=== PATIENT | male | born 1955 | race Caucasian/White ===

== ENCOUNTER 2017-06-18 13:50 | Inpatient (IN) ==
[2017-06-18] MEDS ORDERED: 0.9 % Sodium Chloride 500 ML IVC ONE (14:05)
--- NOTE | 2017-06-18 14:35 | Emergency Department Note ---
Disposition Clinical Impression: TIA (transient ischemic attack) Qualifiers: Transient cerebral ischemia type: unspecified Qualified Code(s): G45.9 - Transient cerebral ischemic attack, unspecified Disposition: Admitted As Inpatient Condition: Good Referrals: NONE,PCP [Non-Partnered Physician] - Forms: ED Satisfaction Letter Time of Disposition: 17:26 Fall HPI - General Chief Complaint: ED Fall Stated Complaint: Head injury / Syncopal episode Time Seen by Provider: 06/18/17 14:05 Source: patient Mode of arrival: wheelchair Limitations: no limitations Nursing Notes Reviewed: Yes Vital Signs Reviewed: Yes - History of Present Illness HPI Narrative: 62 year old male who lives at home with his stepdaughter and states that he has been experiencing increased syncopal episodes and today he was trying to pee in the bathroom and sat down on the toilet and then "blacked out" And hit his head on the dryer machine. with (+) LOC and states that when he came too he moved himself into the living room and noticed that he was bleedingin profusely and called his stepdaughter and she cleaned him up and then brought him to the ED> Heath staets that he has been feeling increasingly light headed withtout difficulyt in ambulating or other neuro symptoms. Heath tstates that he is experiencing a headache and left ear pain. Heath does not have any other pain anywhere else. Heath states that he has atrial fibrillation that is rate controlled and is currently on a blood thinner but cannot remember the name of the medication. - Related Data Previous Rx's Medication Instructions Recorded Albuterol Sulfate [Albuterol 1 puff IH Q6HR #1 [id number] 07/22/15 Inhaler] Azithromycin [Zithromax] 250 mg PO DAILY #6 tablet 07/22/15 Allergies Allergy/AdvReac Type Severity Reaction Status Date / Time No Known Allergies Allergy Verified 07/22/15 12:51 Constitutional: Denies: fever, chills, weakness, weight change Eyes: Denies: eye pain, eye discharge, vision change ENT ED: Denies: ear pain, throat pain, dental pain, hearing loss, epistaxis, congestion, dysphagia Cardiovascular: Denies: chest pain, palpitations, dyspnea on exertion, edema, syncope Respiratory: Denies: cough, dyspnea, wheezes, hemoptysis, stridor Gastrointestinal: Denies: abdominal pain, nausea, vomiting, diarrhea, constipation, hematemesis, melena, hematochezia Genitourinary: Denies: urgency, dysuria, frequency, hematuria Musculoskeletal: Denies: back pain, neck pain, arthralgia, myalgia Integumentary: Denies: rash, abrasion, lesions Neurological: Reports: headache, weakness, other (syncope). Denies: numbness, paresthesias, confusion, abnormal gait, vertigo Psychiatric: Denies: anxiety, depression, suicidal thoughts, homicidal thoughts , auditory hallucinations, visual hallucinations Endocrine: Denies: fatigue Hematological/Lymphatic: Denies: easy bleeding, easy bruising Allergic/Immunologic: Denies: facial swelling, urticaria Fall PMH - Past Medical History Medical history: Reports: atrial fibrillation, diabetes, hyperlipidemia, hypertension Surgical history: Reports: orthopedic, other Psychiatric history: Reports: anxiety, depression - Social History Smoking Status: Current every day smoker Alcohol use: Reports: none Drug use: Reports: none Physical Exam - General Limitations: no limitations General appearance: alert - Head Head exam: normocephalic, normal inspection, other (abrasionso the left temporal forehead and left ear bruised and red) - Eye Eye exam: Present: normal appearance, PERRL, EOMI - Expanded Eye Exam Pupils: Left: reactive - ENT ENT exam: normal exam, normal oropharynx, mucous membranes moist - Expanded ENT Exam External ear exam: Present: normal external inspection Mouth exam: Present: normal external inspection Teeth exam: Present: normal inspection Throat exam: Present: normal inspection - Neck Neck exam: Present: normal inspection, full ROM, trachea midline - Chest Chest inspection: Present: normal inspection, symmetric chest wall rise - Respiratory Respiratory exam: Present: normal lung sounds bilaterally - Cardiovascular Cardiovascular exam: Present: regular rate, irregular rhythm, normal heart sounds - Abdominal Exam Abdominal exam: Present: soft, Non-Tender. Absent: tenderness, distention, guarding, rebound, rigidity - Extremities Exam Extremities exam: Present: normal inspection, full ROM. Absent: tenderness, pedal edema - Expanded Upper Extremity Exam Shoulder exam: Present: normal inspection, full ROM Arm exam: Present: normal inspection, full ROM Elbow exam: Present: normal inspection, full ROM Forearm/Wrist exam: Present: normal inspection, full ROM Hand exam: Present: normal inspection, full ROM Vascular exam: Normal: capillary refill, radial pulse - Expanded Lower Extremity Exam Hip/Pelvis exam: Present: normal inspection, full ROM Upper leg exam: Present: normal inspection, full ROM Knee exam: Present: normal inspection, full ROM Lower leg exam: Present: normal inspection, full ROM Ankle exam: Present: normal inspection, full ROM Foot/toe exam: Present: normal inspection, full ROM Neurovascular/Tendon exam: Absent: motor deficit, sensory deficit, tendon deficit - Back Exam Back exam: Present: normal inspection, full ROM. Absent: tenderness - Neurological Exam Neurological exam: Present: alert, oriented X3 - Expanded Neurological Exam Patient oriented to: Present: person, place, time Coma Scale Eye Opening: Spontaneous Coma Scale Motor Response: Obeys Commands Coma Scale Verbal Response: Oriented Coma Scale Total: 15 - Psychiatric Psychiatric exam: Present: normal affect, normal mood - Skin Skin exam: Present: warm, dry, intact, normal color Course Course Narrative: we will do a HCT and synope workup on patient. - Reevaluation(s) Reevaluation #1: discussed results with patient. We will admit to medicine for r/o CVA. Asa has been given. Time: 17:25 - Consultations Consultation #1: discussed case with Dr. Pozo and she accepts patient to the medicine servvice Time: 17:26 Vital Signs Temperature 97.5 F L 06/18/17 13:54 Pulse Rate 80 06/18/17 13:54 Respiratory Rate 16 06/18/17 13:54 Blood Pressure 123/5 06/18/17 13:54 O2 Sat by Pulse Oximetry 92 06/18/17 13:54 Temperature 97.5 F L 06/18/17 13:54 Pulse Rate 91 06/18/17 17:22 Respiratory Rate 18 06/18/17 17:22 Blood Pressure 154/81 06/18/17 17:22 O2 Sat by Pulse Oximetry 94 06/18/17 17:22 Oxygen Delivery Oxygen Delivery Nasal Cannula Fall - Lab Data Result diagrams: 06/18/17 14:37 06/18/17 14:37 Lab Results 06/18/17 06/18/17 06/18/17 Range/Units 14:37 14:37 14:37 WBC 7.1 (4.3-11.1) K/mcL RBC 5.12 (4.19-5.50) M/mcL Hgb 12.8 L (12.9-16.9) g/dL Hct 43.0 (37.5-50.1) % MCV 84.0 (83.0-100.0) fL MCH 25.0 L (28.0-33.3) pg MCHC 29.8 L (31.6-35.5) g/dL RDW 18.0 H (11.5-14.5) % Plt Count 226 (140-400) K/mcL MPV 8.9 L (9.4-12.4) fL Immature Gran % 0.6 (0-4) % Seg Neutrophils % 80.5 % Lymphocytes % 9.5 % Monocytes % 6.2 % Eosinophils % 2.8 % Basophils % 0.4 % Neutrophils # 5.7 (1.6-8.9) K/mcL Lymphocytes # 0.7 (0.6-4.6) K/mcL Monocytes # 0.4 (0.0-1.3) K/mcL Eosinophils # 0.2 (0.0-0.6) K/mcL Basophils # 0.0 (0.0-0.2) K/mcL PT 19.9 H (9.4-12.1) Seconds INR 1.8 APTT 37.8 H (26.0-36.0) Seconds Sodium 137 (136-145) mEq/L Potassium 4.0 (3.5-4.5) mEq/L Chloride 101 (98-109) mEq/L Carbon Dioxide 29 (19-29) mEq/L BUN 21 (8-26) mg/dL Creatinine 0.90 (0.72-1.25) mg/dL Est GFR ( Amer) > 60 (> 60) Est GFR (Non-Af Amer) > 60 (> 60) BUN/Creatinine Ratio 23 (6-26) Glucose 145 H (70-99) mg/dL Calculated Osmolality 290 (280-300) Calcium 9.9 (8.6-10.8) mg/dL Troponin I (0-0.03) ng/mL Urine Color (Yellow) Urine Clarity (Clear) Urine pH (5.0-8.0) pH Units Ur Specific Model (1.010-1.025) Urine Protein (Neg-Trace) mg/dL Urine Glucose (UA) (Normal) mg/dL Urine Ketones (Negative) mg/dL Urine Blood (Negative) Urine Nitrite (Negative) Urine Bilirubin (Negative) Urine Urobilinogen (Normal) mg/dL Ur Leukocyte Esterase (Negative) Urine Microscopic RBC (0-3) per hpf Ur Squamous Epith Cells (None-Few) per lpf Amorphous Sediment (Few) Urine Bacteria (None-Few) per hpf Hyaline Casts (None-Few) per lpf Ur Culture Indicated? (NO) 06/18/17 06/18/17 Range/Units 14:37 16:05 WBC (4.3-11.1) K/mcL RBC (4.19-5.50) M/mcL Hgb (12.9-16.9) g/dL Hct (37.5-50.1) % MCV (83.0-100.0) fL MCH (28.0-33.3) pg MCHC (31.6-35.5) g/dL RDW (11.5-14.5) % Plt Count (140-400) K/mcL MPV (9.4-12.4) fL Immature Gran % (0-4) % Seg Neutrophils % % Lymphocytes % % Monocytes % % Eosinophils % % Basophils % % Neutrophils # (1.6-8.9) K/mcL Lymphocytes # (0.6-4.6) K/mcL Monocytes # (0.0-1.3) K/mcL Eosinophils # (0.0-0.6) K/mcL Basophils # (0.0-0.2) K/mcL PT (9.4-12.1) Seconds INR APTT (26.0-36.0) Seconds Sodium (136-145) mEq/L Potassium (3.5-4.5) mEq/L Chloride (98-109) mEq/L Carbon Dioxide (19-29) mEq/L BUN (8-26) mg/dL Creatinine (0.72-1.25) mg/dL Est GFR ( Amer) (> 60) Est GFR (Non-Af Amer) (> 60) BUN/Creatinine Ratio (6-26) Glucose (70-99) mg/dL Calculated Osmolality (280-300) Calcium (8.6-10.8) mg/dL Troponin I 0.00 (0-0.03) ng/mL Urine Color Yellow (Yellow) Urine Clarity Clear (Clear) Urine pH 6.0 (5.0-8.0) pH Units Ur Specific Model 1.025 (1.010-1.025) Urine Protein Negative (Neg-Trace) mg/dL Urine Glucose (UA) >=1000 H (Normal) mg/dL Urine Ketones Negative (Negative) mg/dL Urine Blood Negative (Negative) Urine Nitrite Negative (Negative) Urine Bilirubin Negative (Negative) Urine Urobilinogen Normal (Normal) mg/dL Ur Leukocyte Esterase Negative (Negative) Urine Microscopic RBC 0-3 (0-3) per hpf Ur Squamous Epith Cells Few (None-Few) per lpf Amorphous Sediment Few (Few) Urine Bacteria None Seen (None-Few) per hpf Hyaline Casts None Seen (None-Few) per lpf Ur Culture Indicated? NO (NO) - EKG Data EKG attestation: Yes I reviewed and interpreted this EKG. EKG results narrative: atrial fibrillation with controlled rate of 66. NO STEMI. no change from old EKG 07/22/15
[2017-06-18 14:40] LABS: Basophils % 0.4 %; Eosinophils # 0.2 K/mcL (0.0-0.6); Eosinophils % 2.8 %; Hemoglobin 12.8 g/dL (12.9-16.9); Immature Granulocytes % 0.6 % (0-4); Lymphocytes # 0.7 K/mcL (0.6-4.6); Lymphocytes % 9.5 %; Mean Corpuscular HGB Conc 29.8 g/dL (31.6-35.5); Mean Platelet Volume 8.9 fL (9.4-12.4); Monocytes # 0.4 K/mcL (0.0-1.3); Monocytes % 6.2 %; Neutrophils # 5.7 K/mcL (1.6-8.9); Platelet Count 226 K/mcL (140-400); Red Blood Count 5.12 M/mcL (4.19-5.50); Segmented Neutrophils % 80.5 %
[2017-06-18 14:46] LABS: INR 1.8; Prothrombin Time 19.9 Seconds (9.4-12.1)
[2017-06-18 14:48] LABS: Activated Partial Thrombo Time 37.8 Seconds (26.0-36.0)
[2017-06-18 14:52] LABS: BUN/Creatinine Ratio 23 (6-26); Blood Urea Nitrogen 21 mg/dL (8-26); Calcium 9.9 mg/dL (8.6-10.8); Carbon Dioxide 29 mEq/L (19-29); Chloride 101 mEq/L (98-109); Glucose 145 mg/dL (70-99); Osmolality,Calculated 290 (280-300); Sodium 137 mEq/L (136-145); eGFR For African Americans > 60 (> 60); eGFR For Non-African Americans > 60 (> 60)
[2017-06-18 16:20] LABS: Bilirubin,Urine Negative (Negative); Blood,Urine Negative (Negative); Color,Urine Yellow (Yellow); Glucose,Urine (UA) >=1000 mg/dL (Normal); Ketones,Urine Negative (Negative); Leukocyte Esterase,Urine Negative (Negative); Nitrite,Urine Negative (Negative); Protein,Urine Negative (Neg-Trace); Specific Gravity,Urine 1.025 (1.010-1.025); Urobilinogen,Urine Normal (Normal)
[2017-06-18 16:22] LABS: Bacteria,Urine None Seen per hpf (None-Few); RBC,Urine 0-3 per hpf (0-3)
[2017-06-18 16:35] LABS: Clarity,Urine Clear (Clear); Squamous Epithelial Cell,Urine Few per lpf (None-Few)
[2017-06-18 16:36] LABS: Amorphous Sediment,Urine Few (Few); Hyaline Casts,Urine None Seen per lpf (None-Few)
[2017-06-18] MEDS ORDERED: Aspirin 81 MG TAB.CHEW PO ONE (17:16)
--- NOTE | 2017-06-18 20:05 | Internal Med History&Physical ---
<Homar Cade - Last Filed: 06/18/17 22:20> Date of Encounter: 06/18/17 Time of Encounter: 19:00 Assessment and Plan (1) Syncope Current visit: Yes Status: Acute Patient presents with syncope that occurred today when he went to the bathroom morning. Patient states he sat down to use the restroom and blacked out, hitting his head on the washer causing a minor head injury that bled due to patient being on Xarelto. Patient states he became shaky and his left arm him went numb prior to syncope. He reports that he has been feeling this way for approximately 1.[address] brain without contrast dated today shows areas of encephalomalacia in the right parietal lobe and right cerebellar hemisphere despite reported lack of prior stroke per patient. MRI of the head/ brain w/wo contrast ordered as well as bilateral carotid Doppler duplex imaging , echocardiogram, orthostatic BPs and vital signs, and neurological checks Q4. Will hold patient's Xarelto tonight pending neuro checks and MRI results and resume tomorrow if appropriate. Qualifiers: Syncope type: unspecified Qualified Code(s): R55 - Syncope and collapse (2) Recurrent falls Current visit: Yes Status: Acute Patient has history of chronic falls with most acute episode today due to syncope. Will rule out possible causes for syncope and falls, including possible CVA, orthostatic hypotension, medication combinations of antihypertensives and sildenafil, and uncontrolled diabetes. PT/OT consults ordered to assess patient's ambulation abilities. Patient to be placed as falls precautions/up with assist/bed rest with bedside commode with assist only due to syncope and falls. (3) Non-pressure ulcer of right lower extremity Current visit: Yes Status: Acute Patient who presents with history of PAD, uncontrolled diabetes, and venous insufficiency of the LEs currently has two non-pressure ulcers of the RLE. One measures approximately 3.8 cm in diameter and 1 cm deep through the adipose layer and the second measuring approximately 1.5 cm in diameter that is closed with scabbing. Wound culture ordered of the open ulcer. Wound care consult and diabetes education consult ordered. Vascular surgery consult ordered as well due to previous arterial study of 02/25 which showed severely diminished right posterior tibial and right dorsalis pedis segmental pressures. Patient had an [id number] amputation of the left leg in 2005. Qualifiers: Non-pressure ulcer stage: with fat layer exposed Qualified Code(s): L97.912 - Non-pressure chronic ulcer of unspecified part of right lower leg with fat layer exposed (4) Tobacco abuse counseling Current visit: Yes Status: Acute Patient provided >5 minutes of smoking cessation counseling due to his current tobacco abuse of 1.5 PPD. Discussed the risks of smoking as related to his diabetes and the vascular impact it can have on healing and health. Patient declined nicotine patch. (5) Diabetes Current visit: Yes Status: Chronic Patient presents with history of chronic diabetes which is currently controlled with glimepiride, liraglutide, farxiga, januvia, and metformin. Will hold patient's home meds and order basal dosing of 10 units of Levemir BID, nutritional dosing of 4 units TID, and medium dose correction insulin sliding scale with hypoglycemia protocol. A1c ordered. Diabetic diet. Diabetes education consult ordered. 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 EKGs dated 07/22/17 and 06/18/17 show atrial fibrillation with incomplete right bundle branch block and nonspecific T-wave abnormality with no significant changes. Will continue digoxin and order digoxin level to assess for toxicity and rule out syncopal reasoning. Patient placed on continuous cardiac telemetry. Qualifiers: Atrial fibrillation type: chronic Qualified Code(s): I48.2 - Chronic atrial fibrillation (7) HTN (hypertension) Current visit: Yes Status: Chronic Patient presents with history of chronic hypertension. Will monitor patient and vital signs and continue his lisinopril/hydrochlorothiazide, lopressor, and amlodipine. Qualifiers: Hypertension type: essential hypertension Qualified Code(s): I10 - Essential (primary) hypertension (8) HLD (hyperlipidemia) Current visit: Yes Status: Chronic Patient presents with history of chronic hyperlipidemia. Lipid panel ordered in a.m. Will continue patient's Tricor and Zocor. Qualifiers: Hyperlipidemia type: pure hypercholesterolemia Qualified Code(s): E78.00 - Pure hypercholesterolemia, unspecified; E78.0 - Pure hypercholesterolemia (9) Anxiety and depression Current visit: Yes Status: Chronic Patient presents with history of chronic anxiety and depression. Will continue patient's Xanax. (10) Rheumatoid arthritis Current visit: Yes Status: Chronic Patient presents with history of chronic RA. Will continue patient's Imuran and stair-step medications to help with pain management. Qualifiers: Rheumatoid arthritis location: unspecified site Rheumatoid factor presence : unspecified presence Qualified Code(s): M06.9 - Rheumatoid arthritis, unspecified (11) DVT prophylaxis Current visit: Yes Status: Acute Patient to be placed on DVT prophylaxis due to current admission protocol and bed rest status. Will hold patient's Xarelto today and order MRI imaging and neuro checks Q4 to assess for deficits or signs of unusual bleeding/behaviors. Will continue Xarelto tomorrow based on assessments tonight. Internal Medicine - H&P: HPI Chief complaint: Fall/Syncope Admitted From: Emergency Dept Plans for Post Hospital Care: Home History of present illness: Mr. Blancas is a 62 year old male who presents from the ED with chief complaint of syncope that occurred today when he went to the bathroom morning. Patient states he sat down to use the restroom and blacked out, hitting his head on the washer causing a minor head injury that bled due to patient being on Xarelto. Patient states he became shaky and his left arm him went numb prior to syncope. His stepdaughter brought him to the ED. Mr. Blancas reports that he has been feeling this way for the past month and a half. Patient's medical history includes atrial fibrillation, diabetes, hyperlipidemia, and hypertension. Patient is currently on Xarelto and digoxin for atrial fibrillation. Patient reports he is a current every day smoker, smoking one half packs per day. Patient is also a diabetic with poorly controlled diabetes. He currently has two untreated pressure ulcers of the RLE, one of which measures approximately 3.8 cm in diameter and 1 cm deep through the adipose layer. Wound culture ordered. Patient had a left leg amputation above the knee in 2005 due to PAD. Patient is at high risk for morbidity based on his current symptoms and risk factors and will be placed as inpatient status with orders for vascular surgery and wound care consults, PT and OT consults, SW consult, and diabetes education consult to assess patient's needs. Due to patient's syncopal episode and CT imaging today which shows areas of encephalomalacia in the right parietal lobe and right cerebral hemisphere despite reported lack of prior stroke by the patient, the patient is to have neuro checks Q4 and an MRI of the head/brain w/wo contrast to help rule out possible stroke/TIA. Orders also placed for bilateral carotid Doppler duplex imaging, echocardiogram, and orthostatic vital signs and BPs. Due to patient's history of falls and syncope today, patient to be placed as falls precautions/up with assist/bed rest with bedside commode with assist only. Tobacco cessation counseling provided to patient for less than 10 minutes and patient declined the use of nicotine patch. A1c and diabetic diet ordered. Patient to be monitored closely for signs of neurological deficits, cardiac and/or respiratory distress. Time spent with patient > 40 minutes. Past Med Surg Social Fam HX - Past Medical History Source: patient Medical history: atrial fibrillation, diabetes, hyperlipidemia, hypertension Psychiatric history: anxiety, depression - Past Surgical History Surgical History: orthopedic, other - Social History Smoking Status: Current every day smoker Packs per day: 1.5 PPD Smokeless Tobacco Status: No Alcohol use: none Drug use: none Current living situation: Home, With Family Recent Out of Country Travel Within the Last 8 Weeks: No Exposure or Possible Exposure to Illness During Travel: No - Family History Mother Race: Family Member Ethnicity: Non- Living Status: Age at : 59 Cause of : Breast cancer Hx Family Cancer: Yes (breast cancer) Internal Medicine - H&P: Meds ALPRAZolam [Xanax 0.5 MG Tablet] 0.5 mg PO BID 06/18/17 [History] Amlodipine Besylate 10 mg PO DAILY 06/18/17 [History] Azathioprine [Imuran] 50 mg PO BID 06/18/17 [History] Calcium Carbonate/Vitamin D3 [Calcium 500-Vit D3 200 Tablet] 1 each PO BID 06/18 [History] Dapagliflozin Propanediol [Farxiga] 5 mg PO DAILY 06/18/17 [History] Digoxin [Lanoxin] 0.125 mg PO DAILY 06/18/17 [History] Famotidine [Heartburn Prevention] 20 mg PO DAILY 06/18/17 [History] Fenofibrate Nanocrystallized [Tricor] 145 mg PO DAILY 06/18/17 [History] Gabapentin [Neurontin] 300 mg PO TID 06/18/17 [History] Glimepiride [Amaryl] 1 mg PO QAM 06/18/17 [History] Liraglutide [Victoza 2-Rudy] 0.6 mg SQ DAILY 06/18/17 [History] Lisinopril/Hydrochlorothiazide [Zestoretic 20-25 mg Tablet] 1 each PO DAILY 06/27 [History] Metformin HCl [Glucophage] 1,000 mg PO BID 06/18/17 [History] Metoprolol [Lopressor] 100 mg PO BID 06/18/17 [History] Oxycodone HCl/Acetaminophen [Percocet 5-325 mg Tablet] 1 each PO Q6H PRN [History] Rivaroxaban [Xarelto] 20 mg PO DAILY 06/18/17 [History] Sildenafil Citrate [Viagra] 50 mg PO AD PRN 06/18/17 [History] Simvastatin [Zocor] 40 mg PO HS 06/18/17 [History] SitaGLIPtin [Januvia] 100 mg PO DAILY 06/18/17 [History] Allergies No Known Allergies Allergy (Verified 07/22/15 12:51) All Systems PM: A 10-system review of systems was performed and is negative for pertinent findings except as documented above in the HPI. - Constitutional Constitutional: as per HPI, falls - EENT Eyes: no change in vision, no discharge, no pain, no photophobia Ears: no ear discharge, no ear pain, no tinnitus Nose, mouth and throat: no dysphagia, no nasal discharge, no neck pain, no sore throat - Breasts Breasts: as per HPI - Cardiovascular Cardiovascular ROS IM: as per HPI, irregular heart rhythm - Respiratory Respiratory: as per HPI, wheezing, no cough, no dyspnea, no excessive phlegm production - Gastrointestinal Gastrointestinal: no abdominal pain, no diarrhea, no hematemesis, no hematochezia, no melena, no nausea, no vomiting - Genitourinary Genitourinary ROS male: as per HPI - Musculoskeletal Musculoskeletal ROS IM: no numbness, no tingling - Integumentary Integumentary IM: as per HPI, skin ulcer (Right leg/outer calf are two ulcers through the adipose tissue (one approximately 2" in diameter, and 1 scabbed over approxiamtely 1" in diameter)), no rash, no unusual bruising - Neurological Neurological ROS: as per HPI, numbness, tingling, no confusion, no convulsions, no focal weakness, no tremor(s) - Psychiatric Psychiatric: as per HPI - Endocrine Endocrine IM: as per HPI - Hematologic/Lymphatic Hematologic/Lymphatic: no easy bruising - Allergic/Immunologic Allergic/Immunologic: as per HPI - Constitutional Vitals: Temp Pulse Resp BP Pulse Ox 97.9 F 76 15 172/77 90 06/18/17 19:45 06/18/17 19:45 06/18/17 19:45 06/18/17 19:45 06/18/17 19:45 General appearance: Present: cooperative, A&O X 3, morbidly obese, pleasant, no acute distress, answers questions appropriately - Head Head exam: Present: normocephalic Additional comments: Patient has scabbed areas located on left forehead from his report of hitting his head on his washer when he became syncopal today. - Eye Eye exam: Present: PERRL, conjuntiva pink, sclera anicteric Pupils: Present: PERRL - ENT ENT exam: Present: normal exam, normal external ear exam - Neck Neck exam general surgery: Present: normal inspection, supple, trachea midline - Respiratory Respiratory exam: Present: wheezes (Bilaterally all lobes) - Cardiovascular Cardiovascular exam: Present: irregular rhythm - GI/Abdominal GI/Abdominal exam: Present: normal bowel sounds, soft, no peritoneal signs. Absent: distended, tenderness - Rectal Rectal exam: Present: deferred - Additional comments: exam deferred. - Extremities Exam Extremities exam: Present: pedal edema (Right LE) - Back Exam Back exam: Present: normal inspection - Neurological Exam Neurological exam: Present: CN II-XII intact, oriented X3, no focal deficits. Absent: pronater drift, facial droop, speech deficit - Psychiatric Psychiatric exam: Present: normal affect, normal mood - Skin Skin exam: Present: erythema (RLE) Additional comments: Patient has two ulcers on the right outer calf, one is approximately 3.8 cm in diameter and approximately 1 cm in depth through the adipose tissue of the leg. The second is approximately 1.5 cm in diameter and is closed by scabbing. Internal Med - H&P Results - Labs CBC & Chem 7: 06/18/17 14:37 06/18/17 14:37 - EKG Data Prior EKG available for review: yes When compared to previous EKG: there is no significant change EKG comments: 06/18/17 20:44 EKG dated 07/22/15 shows atrial fibrillation with incomplete right bundle branch block and nonspecific T-wave abnormality. EKG dated 06/18/17 shows atrial fibrillation with incomplete right bundle branch block and nonspecific T-wave abnormality. - Diagnostic Studies Chest x-ray Additional comments: Impressions Chest X-Ray 06/18/17 14:05 IMPRESSION: Negative chest x-ray. No evidence of acute cardiopulmonary disease. D/ / Eulogio Alonso MD / Eulogio Alonso MD Interpreting Provider: Eulogio Alonso MD CT scan - head Additional comments: Impressions Head CT 06/18/17 14:05 IMPRESSION: 1. No acute intracranial abnormality nor acute calvarial fracture. 2. Areas of encephalomalacia in the right parietal lobe and right cerebellar hemisphere despite reported lack of prior stroke per the patient. D/ / Nayan Whitaker MD / Nayan Whitaker MD Interpreting Provider: Nayan Whitaker MD <Niko Gould - Last Filed: 06/18/17 23:58> Date of Encounter: 06/18/17 Internal Medicine - H&P: HPI History of present illness: Mr. Blancas is a 62 year old male All Systems PM: A 10-system review of systems was performed and is negative for pertinent findings except as documented above in the HPI. - Constitutional Vitals: Temp Pulse Resp BP Pulse Ox 97.9 F 78 16 129/75 92 06/18/17 22:38 06/18/17 22:38 06/18/17 22:38 06/18/17 22:38 06/18/17 22:38 Internal Med - H&P Results - Labs CBC & Chem 7: 06/18/17 14:37 06/18/17 14:37 - Attending Attestation I independently obtained history and examined this patient and my medical decision-making was reviewed with the nurse practitioner. I agree with the documented findings, disposition and treatment plan as described. My findings are summarized below: Patient presented status post fall. He states that he blacked out. On exam he is in no acute distress awake alert and oriented. Heart is regular with normal S1-S2, no murmurs. Lung exam reveals bilateral wheezes. Abdomen is obese. Lower extremity exam reveals left BKA with amputation stump well healed. Right lower extremity wound on the outside coleman measuring 6 cm and the largest diameter. Plan: Orthostatic vital signs. Neuro checks. Workup for syncope including echocardiogram. The wound care consult. Vascular surgery consult for severe peripheral arterial disease. Per medical record review he had vascular studies done which showed severe right lower extremity perfusion deficit.
[2017-06-18] MEDS ORDERED: Naloxone 0.4 MG/ML INJ IVP PRN (20:47)
[2017-06-18] MEDS ORDERED: *HR* HYDROcodone/Acet 5/325 mg TABLET PO PRN (20:47)
[2017-06-18] MEDS ORDERED: Ondansetron 4 MG/2 ML VIAL IVP PRN (20:47)
[2017-06-18] MEDS ORDERED: Acetaminophen 325 MG TABLET PO PRN (20:47)
[2017-06-18] MEDS ORDERED: *HR* Morphine 2 MG/ML SYRINGE IVP PRN (20:47)
[2017-06-18] MEDS ORDERED: Dextrose Gel 15 GM PO PRN ×2 (21:02)
[2017-06-18] MEDS ORDERED: *HR* Dextrose 50 % in Water (Syg) 50 ML SYRINGE IVP PRN (21:02)
[2017-06-18] MEDS ORDERED: D5% in Water 1,000 ML IVC PRN (21:02)
[2017-06-18] MEDS: Metoprolol 100 MG TABLET PO SCH (22:07)
[2017-06-18] MEDS: ALPRAZolam 0.5 MG TABLET PO SCH (22:07)
[2017-06-18] MEDS: Gabapentin 300 MG CAPSULE PO SCH (22:07)
[2017-06-18] MEDS: Pantoprazole 40 MG VIAL IVP SCH (22:09)
[2017-06-18] MEDS: Insulin DETEMIR 100 UNIT/ML X5UNITS SQ SCH (23:10)
[2017-06-19 05:01] LABS: INR 1.3; Prothrombin Time 14.5 Seconds (9.4-12.1)
[2017-06-19 05:04] LABS: Activated Partial Thrombo Time 32.1 Seconds (26.0-36.0)
[2017-06-19 05:08] LABS: Hemoglobin A1C 6.5 %
[2017-06-19 05:11] LABS: BUN/Creatinine Ratio 19 (6-26); Blood Urea Nitrogen 20 mg/dL (8-26); Calcium 9.6 mg/dL (8.6-10.8); Carbon Dioxide 30 mEq/L (19-29); Chloride 102 mEq/L (98-109); Chol/HDL Ratio 5.6 (0-4.9); Cholesterol 139 mg/dL (< 200); Glucose 161 mg/dL (70-99); HDL Cholesterol 25 mg/dL (40-59); LDL Cholesterol,Calculated 57 mg/dL (0-99); Magnesium 1.9 mg/dL (1.6-2.6); Osmolality,Calculated 294 (280-300); Potassium 4.3 mEq/L (3.5-4.5); Sodium 139 mEq/L (136-145); Triglycerides 284 mg/dL (< 150); eGFR For African Americans > 60 (> 60); eGFR For Non-African Americans > 60 (> 60)
[2017-06-19 05:19] LABS: Basophils % 0.5 %; Segmented Neutrophils % 74.8 %
[2017-06-19 05:20] LABS: Eosinophils # 0.2 K/mcL (0.0-0.6); Eosinophils % 2.7 %; Hemoglobin 12.8 g/dL (12.9-16.9); Immature Granulocytes % 0.3 % (0-4); Lymphocytes # 0.8 K/mcL (0.6-4.6); Lymphocytes % 13.3 %; Mean Corpuscular HGB Conc 29.1 g/dL (31.6-35.5); Mean Corpuscular Volume 86.1 fL (83.0-100.0); Mean Platelet Volume 9.6 fL (9.4-12.4); Monocytes # 0.5 K/mcL (0.0-1.3); Monocytes % 8.4 %; Neutrophils # 4.4 K/mcL (1.6-8.9); Platelet Count 232 K/mcL (140-400); Red Blood Count 5.11 M/mcL (4.19-5.50); Red Cell Distribution Width 18.2 % (11.5-14.5)
[2017-06-19 05:40] LABS: Digoxin < 0.3 ng/mL (0.8-2.0)
[2017-06-19 06:13] LABS: Anisocytosis 1+ (Not Present); Hypochromasia Present (Not Present); Macrocytosis Present (Not Present); Platelet Estimate Normal (Normal); Polychromasia 1+ (Not Present)
[2017-06-19 06:14] LABS: Large Platelets Present (Not Present)
[2017-06-19] MEDS: Pantoprazole 40 MG VIAL IVP SCH (08:03)
[2017-06-19] MEDS: ALPRAZolam 0.5 MG TABLET PO SCH ×2 (08:04→20:59)
[2017-06-19] MEDS: Metoprolol 100 MG TABLET PO SCH (08:04)
[2017-06-19] MEDS: Gabapentin 300 MG CAPSULE PO SCH ×3 (08:04→20:59)
[2017-06-19] MEDS: Insulin LISPRO 300 UNITS/3 ML VIAL SQ SCH ×6 (08:41→16:32)
[2017-06-19] MEDS ORDERED: amLODIPine 5 MG TABLET PO SCH (09:00)
[2017-06-19] MEDS ORDERED: Fenofibrate 54 MG TABLET PO SCH (09:00)
[2017-06-19] MEDS ORDERED: *HR* Digoxin 0.125 MG TABLET PO SCH (09:00)
[2017-06-19] MEDS ORDERED: *HR* Midazolam HCl 2 MG/2 ML VIAL IVP ONE (10:16)
--- NOTE | 2017-06-19 10:22 | Internal Med Progress Note ---
Date of Encounter: 06/19/17 Time of Encounter: 09:45 - Assessment and plan (1) Syncope Current Visit: Yes Status: Acute Assessment and plan: In review of his telemetry overnight, patient's heart rate went down to as low as 18. However, his heart rate was in the 70s this morning so he received all of his normal home medications. Shortly thereafter, patient began to experience lightheadedness, dizziness, and presyncopal sensations. Telemetry reviewed and the patient's heart rate was down in the 20s. He was alert and able to carry on a conversation during this episode. Pacer pads placed although we have not had to use them at this time. Patient remained stable. Blood pressure remained stable. Cardiology brought on board, transferring the patient to [address] [place] [address]. Sign out to Dr. Call and care transferred. Echo, carotid , MRI pending. Patient stating that for the last 1.5 months, he has "not felt right. Something was wrong." He states that he has been dizzy and lightheaded at times during this timeframe, but yesterday's event was his first loss of consciousness. There are no recent cardiac workups in [facility] or in [facility]- no recent Echo, LHC, etc. He states that he was "shocked" 15 years ago for Afib RvR- he denies prior issues with bradycardia. ITS Impressions Chest X-Ray 06/18/17 14:05 IMPRESSION: Negative chest x-ray. No evidence of acute cardiopulmonary disease. D/ / Eulogio Alonso MD / Eulogio Alonso MD Interpreting Provider: Eulogio Alonso MD Head CT 06/18/17 14:05 IMPRESSION: 1. No acute intracranial abnormality nor acute calvarial fracture. 2. Areas of encephalomalacia in the right parietal lobe and right cerebellar hemisphere despite reported lack of prior stroke per the patient D/ / Nayan Whitaker MD / Herbert Batista Interpreting Provider: Nayan Whitaker MD (2) Atrial fibrillation with slow ventricular response Current Visit: Yes Status: Acute (3) Afib Current Visit: Yes Status: Chronic Assessment and plan: On dig with subtherapeutic levels. Will DC as he has been bradycardic since admission. AC with Xarelto- will resume after MRI if appropriate. Cardiology onboard. Qualifiers: Atrial fibrillation type: chronic Qualified Code(s): I48.2 - Chronic atrial fibrillation (4) Recurrent falls Current Visit: Yes Status: Acute Assessment and plan: OT and PT consultations are pending. (5) Non-pressure ulcer of right lower extremity Current Visit: Yes Status: Chronic Assessment and plan: acute on chronic. Vascular surgery is onboard- attempted to call Dr Goodwin without contact thus far. Patient with history of left [id number] amputation in 2006. Right lower extremity ecchymotic with capillary refill of 3 seconds to the toes. Decreased sensation with light touch. Patient had vascular studies in February that revealed severe vascular compromise to his right lower extremity. Wound is also on board. Qualifiers: Non-pressure ulcer stage: with fat layer exposed Qualified Code(s): L97.912 - Non-pressure chronic ulcer of unspecified part of right lower leg with fat layer exposed (6) Diabetes Current Visit: Yes Status: Chronic Assessment and plan: appears controlled with an A1C of 6.5%. continue sliding scale while admitted. Qualifiers: Diabetes mellitus type: type 2 Diabetes mellitus complication status: with skin complications Diabetes mellitus complication detail: with other skin ulcer Diabetes mellitus salvage determiner insulin use: without salvage determiner use Qualified Code(s): E11.622 - Type 2 diabetes mellitus with other skin ulcer (7) HTN (hypertension) Current Visit: Yes Status: Chronic Assessment and plan: Controlled. Orthostatic vital signs unremarkable. Continue to trend and adjust medications as indicated. Qualifiers: Hypertension type: essential hypertension Qualified Code(s): I10 - Essential (primary) hypertension (8) HLD (hyperlipidemia) Current Visit: Yes Status: Chronic Assessment and plan: Triglycerides 284, rest of lipid panel unremarkable. On fenofibrate and statin. Low-cholesterol diet. Qualifiers: Hyperlipidemia type: pure hypercholesterolemia Qualified Code(s): E78.00 - Pure hypercholesterolemia, unspecified; E78.0 - Pure hypercholesterolemia (9) Anxiety and depression Current Visit: Yes Status: Chronic Assessment and plan: Mood and affect stable during my interaction with him. (10) Tobacco abuse counseling Current Visit: Yes Status: Chronic Assessment and plan: Continues to smoke 1.5 packs per day, nicotine patch. Declines counseling at this time (11) Rheumatoid arthritis Current Visit: Yes Status: Chronic Assessment and plan: Chronic. denies pain at this time. (12) DVT prophylaxis Current Visit: Yes Status: Acute Assessment and plan: Holding home Xarelto for today pending MRI and CVA rule out. We will resume tomorrow if ruled out. - Time Spent With Patient Greater than 35 minutes - Subjective Interval history: Patient seen and examined. On examination, patient resting supine in bed with the head of the bed elevated. He is diaphoretic and pale and complains of dizziness and lightheadedness. He feels as if he is going to pass out. He denies any palpitations or chest pain. He is alert and oriented 3. He denies pain at this time. He ate his entire breakfast. - Constitutional Vitals: Temp Pulse Resp BP Pulse Ox 98.1 F 81 16 115/65 98 06/19/17 09:34 06/19/17 09:34 06/19/17 09:34 06/19/17 09:34 06/19/17 09:34 General appearance: Present: cooperative, mild distress, A&O X 3, morbidly obese , pleasant, answers questions appropriately - Head Head exam: Present: atraumatic, normocephalic - Eye Eye exam: Present: PERRL, conjuntiva pink, sclera anicteric Pupils: Present: PERRL - Neck Neck exam general surgery: Present: supple, trachea midline. Absent: lymphadenopathy - Respiratory Respiratory exam: Present: decreased breath sounds, respiratory distress (mild) . Absent: accessory muscle use, rales, rhonchi, wheezes - Cardiovascular Cardiovascular exam: Present: bradycardia, irregular rhythm, +S1, +S2. Absent: diastolic murmur, gallop, rubs, systolic murmur - GI/Abdominal GI/Abdominal exam: Present: distended, normal bowel sounds, soft, no peritoneal signs. Absent: tenderness - Extremities Exam Extremities exam: Present: warm, radial pulses palpable and symmetrical. Absent : calf tenderness, cyanotic, pedal edema - Expanded Lower Extremities Exam Lower Leg exam: Present: erythema (LEFT AKA; charting is on RLE), swelling. Absent: normal inspection Ankle exam: Present: erythema, swelling, tenderness. Absent: normal inspection Neuro vascular tendon exam: Present: abnormal cap refill (3 secs), decreased fine/light touch. Absent: no vascular compromise Gait: Present: not tested/not observed - Neurological Exam Neurological exam: Present: alert, CN II-XII intact, oriented X3, no focal deficits. Absent: pronater drift, facial droop, speech deficit - Skin Skin exam: Present: diaphoretic, intact, pallor, warm Internal Medicine: Result - Labs CBC & Chem 7: 06/19/17 04:34 06/19/17 04:34 Labs: Short CBC 06/19/17 Range/Units 04:34 WBC 5.9 (4.3-11.1) K/mcL Hgb 12.8 L (12.9-16.9) g/dL Hct 44.0 (37.5-50.1) % Plt Count 232 (140-400) K/mcL Neutrophils # 4.4 (1.6-8.9) K/mcL BMP 06/19/17 04:34 Sodium 139 Potassium 4.3 Chloride 102 Carbon Dioxide 30 H BUN 20 Creatinine 1.07 Glucose 161 H Calcium 9.6 - ABG Interpretation ABG results: PT/INR, D-dimer PT 14.5 Seconds (9.4-12.1) H 06/19/17 04:34 Consult Discharge Plan - Plan Referrals: Sarah Mckeon MD [Primary Care Provider] -
--- NOTE | 2017-06-19 11:08 | Cardiology Consult Note ---
Addendum entered and electronically signed by Fidel Fox CNP 06/19/17 16:08: Pt was also on Lopressor 100mg BID at home, received this AM as well. Stopped BB. Avoid AV foreign blockers. Original Note: <Fidel Fox - Last Filed: 06/19/17 10:57> Date of Encounter: 06/19/17 Time of Encounter: 10:57 Assessment and Plan (1) Syncope Current Visit: Yes Status: Acute Syncopal event yesterday morning while sitting on the toilet--laceration to head. No acute finding on head CT. It showed areas of encephalomalacia in the right parietal lobe and right cerebral hemisphere despite reported lack of prior stroke by the patient. Pt reports feeling unwell for the past month and a half. Denies chest pain or dyspnea. Pt with chronic A-Fib, diagnosed 10-15 years ago and has been on Digoxin since that time. Anticoagulated on xarelto, held on admission due to syncope and laceration. 12 hr tele reviewed--found to have nocturnal pauses up to 10 seconds and lowest HR noted 18 bpm, A-Fib. HR at 1008 this AM found to be 28, witnessed to be awake, pale and diaphoretic and presyncopal. Received Digoxin this AM. Dig level <0.3. Stop digoxin. External pacing pads in place and pt being transferred to . Echo ordered to evaluate structure and function. Mag 1.9, K 4.3. Consult EP for further recommendations regarding ischemic evaluation, PPM, etc. Qualifiers: Syncope type: unspecified Qualified Code(s): R55 - Syncope and collapse (2) Symptomatic bradycardia Current Visit: Yes Status: Acute As above. Concern for ischemic cause of bradycardia given multiple risk factors of uncontrolled DM, PVD, current tobacco abuse, obesity, HTN, HLD. No recent ischemic evaluation. Await echo results and consult EP for further recommendations. Will need input if pt warrants LHC prior to PPM. Troponin negative x 1. Pt denies chest pain or dyspnea. (3) Atrial fibrillation with slow ventricular response Current Visit: Yes Status: Acute As above. Anticoagulated on Xarelto, currently on hold s/p syncopal event and head laceration. Received Digoxin this AM. Will stop. Digoxin level <0.3. Chronic A-Fib, has been on digoxin 10-15 years. Reports having a DCCV in the remote past for A-Fib RVR. Reports slow ventricular response is a new issue for him. (4) Tobacco abuse Current Visit: Yes Status: Acute Smoking cessation counseling given. Smokes 1 1/2 PPD for >40 years. Discussion w patient/family: The assessment and plan as outlined above was discussed with the patient and/or family members who expressed understanding and agreement. All questions were answered. Thank you for involving us in the care of your patient. Please call with any questions. I will discuss all the above with Dr. Farfan and make changes as necessary. History of Present Illness Consult date: 06/19/17 Requesting physician: Ofelia Mccarty Consult reason: Symptomatic bradycardia, syncope, pauses Chief complaint: syncope History of present illness: Mr. Blancas is a 62 year old male with PMH of chronic atrial fibrillation on xarelto, poorly controlled diabetes, hyperlipidemia, HTN, PVD s/p left AKA, current tobacco abuse, currently has two untreated pressure ulcers of the RLE. Pt presented from the ED with chief complaint of syncope that occurred yesterday AM when he went to the bathroom. Patient states he sat down to use the restroom and blacked out, hitting his head on the washer causing a laceration. Pt reports that he has not been feeling well for the the past month and a half. CT imaging showed areas of encephalomalacia in the right parietal lobe and right cerebral hemisphere despite reported lack of prior stroke by the patient. Pt denies chest pain or dyspnea. 12 hr tele reviewed. Pt had nocturnal pauses up to 10 seconds and significant bradycardia with HR as low as 18. Pt alert and awake this AM, had EKG at 1008 AM with HR 28. Observation per hospitalist during that time, states pt was diaphoretic and pale. Pt felt as though he was going to pass out. He was on Digoxin at home 125mcg daily, received dose this AM. Digoxin level <0.3. Temporary pacer pads in place currently, current HR 60s-70s. Pt reports having a LHC many years ago without stent placement. No echo available for review. Cardiology consulted for further recommendations. Mag 1.9, K 4.3. Past Med Surg Social Fam HX - Past Medical History Medical history: atrial fibrillation, diabetes, hyperlipidemia, hypertension, peripheral artery disease Psychiatric history: anxiety, depression - Past Surgical History Surgical History: orthopedic, other, vascular surgery - Social History Smoking Status: Current every day smoker Packs per day: 1.5 PPD Smokeless Tobacco Status: No Alcohol use: none Drug use: none - Family History Mother Race: Family Member Ethnicity: Non- Living Status: Age at : 59 Cause of : Breast cancer Hx Family Cancer: Yes (breast cancer) Medications and Allergies ALPRAZolam [Xanax 0.5 MG Tablet] 0.5 mg PO BID 06/18/17 [History] Amlodipine Besylate 10 mg PO DAILY 06/18/17 [History] Azathioprine [Imuran] 50 mg PO BID 06/18/17 [History] Calcium Carbonate/Vitamin D3 [Calcium 500-Vit D3 200 Tablet] 1 each PO BID 06/18 [History] Dapagliflozin Propanediol [Farxiga] 5 mg PO DAILY 06/18/17 [History] Digoxin [Lanoxin] 0.125 mg PO DAILY 06/18/17 [History] Famotidine [Heartburn Prevention] 20 mg PO DAILY 06/18/17 [History] Fenofibrate Nanocrystallized [Tricor] 145 mg PO DAILY 06/18/17 [History] Gabapentin [Neurontin] 300 mg PO TID 06/18/17 [History] Glimepiride [Amaryl] 1 mg PO QAM 06/18/17 [History] Liraglutide [Victoza 2-Rudy] 0.6 mg SQ DAILY 06/18/17 [History] Lisinopril/Hydrochlorothiazide [Zestoretic 20-25 mg Tablet] 1 each PO DAILY 06/27 [History] Metformin HCl [Glucophage] 1,000 mg PO BID 06/18/17 [History] Metoprolol [Lopressor] 100 mg PO BID 06/18/17 [History] Oxycodone HCl/Acetaminophen [Percocet 5-325 mg Tablet] 1 each PO Q6H PRN [History] Rivaroxaban [Xarelto] 20 mg PO DAILY 06/18/17 [History] Sildenafil Citrate [Viagra] 50 mg PO AD PRN 06/18/17 [History] Simvastatin [Zocor] 40 mg PO HS 06/18/17 [History] SitaGLIPtin [Januvia] 100 mg PO DAILY 06/18/17 [History] Allergies No Known Allergies Allergy (Verified 07/22/15 12:51) All Systems Review: A 10-system review of systems was performed and is negative for pertinent findings except as documented above in the HPI. - Cardiovascular Cardiovascular: as per HPI, diaphoresis, syncope - Neurological Neurological: syncope Physical Examination Vital Signs, Last 4 Hours Temp Pulse Resp BP Pulse Ox 06/19/17 09:34 98.1 F 81 16 115/65 98 06/19/17 07:35 92 06/19/17 07:19 98.2 F 52 16 120/59 92 Vital Signs Temp Pulse Pulse Pulse Pulse Resp BP 06/19/17 09:34 98.1 F 81 16 115/65 06/19/17 07:35 06/19/17 07:19 98.2 F 52 16 120/59 06/19/17 04:14 98.2 F 80 83 83 80 16 127/74 06/18/17 22:38 97.9 F 78 16 129/75 06/18/17 19:45 97.9 F 76 15 172/77 06/18/17 18:47 97.8 F 82 16 161/76 06/18/17 18:36 98.1 F 18 151/74 06/18/17 17:22 91 18 154/81 06/18/17 13:54 97.5 F L 80 16 123/5 BP BP BP Pulse Ox 06/19/17 09:34 98 06/19/17 07:35 92 06/19/17 07:19 92 06/19/17 04:14 127/74 144/83 144/77 92 06/18/17 22:38 92 06/18/17 19:45 90 06/18/17 18:47 93 06/18/17 18:36 06/18/17 17:22 94 06/18/17 13:54 92 Intake and Output 06/18/17 06/19/17 06/19/17 23:59 07:59 15:59 Intake Total 237 / 237 Output Total 0 / 0 400 / 400 Balance 237 / 237 -400 / -400 Intake: Oral 237 / 237 Output: Urine 0 / 0 400 / 400 Other: Weight 129.727 kg 58.513 kg Blood Glucose* 98 160 Patient Weight 06/19/17 23:59 Weight 58.513 kg General: Conversant, No Apparent Distress HEENT: Atraumatic, Normocephaly, Mucus Membranes Moist Neck: No JVD, Normal carotid pulses Cardiac: Other (irregularly irregular ) Lungs: Other (coarse throughout) Neuro: Alert and responsive, No focal deficits noted Abdomen: Soft, Non-Tender Skin: Other (RLE wounds) Musculoskeletal: No Chest Wall Tenderness Extremities: Other (Left AKA) Results 06/19/17 04:34 06/19/17 04:34 Lab Results 06/19/17 06/19/17 06/19/17 04:34 04:34 04:34 WBC 5.9 Hgb 12.8 L Hct 44.0 Plt Count 232 INR 1.3 APTT 32.1 Sodium 139 Potassium 4.3 Chloride 102 Carbon Dioxide 30 H BUN 20 Creatinine 1.07 Glucose 161 H Calcium 9.6 Magnesium 1.9 - EKG Interpretation EKG results cardiology: personally reviewed, other (12 hr tele AVG HR 71, A-Fib , lowest HR 18, longest pause 10 seconds nocturnal) Consult Discharge Plan - Plan Referrals: Sarah Mckeon MD [Primary Care Provider] - <Liseth Farfan - Last Filed: 06/19/17 17:41> Date of Encounter: 06/19/17 Assessment and Plan Discussion w patient/family: The assessment and plan as outlined above was discussed with the patient and/or family members who expressed understanding and agreement. All questions were answered. Thank you for involving us in the care of your patient. Please call with any questions. History of Present Illness History of present illness: Mr. Blancas is a 62 year old male All Systems Review: A 10-system review of systems was performed and is negative for pertinent findings except as documented above in the HPI. Physical Examination Vital Signs, Last 4 Hours Temp Pulse Resp BP Pulse Ox 06/19/17 15:51 97.9 F 81 24 122/63 93 06/19/17 15:35 78 20 122/63 Results 06/19/17 04:34 06/19/17 04:34 Lab Results 06/19/17 06/19/17 06/19/17 04:34 04:34 04:34 WBC 5.9 Hgb 12.8 L Hct 44.0 Plt Count 232 INR 1.3 APTT 32.1 Sodium 139 Potassium 4.3 Chloride 102 Carbon Dioxide 30 H BUN 20 Creatinine 1.07 Glucose 161 H Calcium 9.6 Magnesium 1.9 TSH 1.433 - Attending Attestation I examined this patient and my medical decision-making was reviewed with the Resident Physician. I agree with the documented findings, disposition and treatment plan. Mr. Blancas presents with a syncopal event while sitting on the toilet. Since he's been here, telemetry has demonstrated pauses of up to 10 seconds which appear to be during sleep. Known to have chronic AFIB on digoxin and also apparently beta shanta. These will be stopped and he will be observed overnight. He has untreated sleep apnea which is likely playing a role. Will discuss case with EP for opinion and recommendations.
--- NOTE | 2017-06-19 11:30 | Electrophysiology Consult Note ---
Date of Encounter: 06/19/17 Time of Encounter: 11:20 Assessment and Plan (1) Syncope Current Visit: Yes Status: Acute Syncopal event yesterday morning while sitting on the toilet--laceration to head. No acute finding on head CT. Reports fatigue, activity intolerance for the past months; symptoms typically worse with exertion. Denies chest pain or dyspnea. Initial diagnosis of A-Fib, 10-15 years ago and has been on Digoxin since that time. Anticoagulated on xarelto, held on admission due to syncope and laceration. ECGs and tele reviewed with Dr. Nicholas: found to have nocturnal pauses up to 10 seconds and lowest HR noted 18 bpm, A-Fib. ECG this afternoon HR 28, afib with slow ventricular response. HR at 1008 this AM found to be 28, witnessed to be awake, pale and diaphoretic and presyncopal. Agree with stopping digoxin. Check echocardiogram. Check TSH. Discussed with Dr. Han Nicholas, will likely require PPM implant. Will continue to monitor HR overnight, make NPO after MN for possible PPM in AM. Qualifiers: Syncope type: unspecified Qualified Code(s): R55 - Syncope and collapse (2) Afib Current Visit: Yes Status: Chronic Long-standing history of atrial fibrillation; has been rate controlled and anticoagulated on Xarelto. Reports remote hx of cardioversion 10-15+ years ago. Last dose of Xarleto 06/17/17 PM. Qualifiers: Atrial fibrillation type: persistent Qualified Code(s): I48.1 - Persistent atrial fibrillation Discussion w patient/family: The assessment and plan as outlined above was discussed with the patient and/or family members who expressed understanding and agreement. All questions were answered. Thank you for involving us in the care of your patient. Please call with any questions. The patient will be discussed and reviewed with Dr. Han Nicholas; changes to be made accordingly. History of Present Illness Consult date: 06/19/17 Requesting physician: Liseth Farfan Consult reason: symptomatic bradycardia Chief complaint: Syncope History of present illness: Mr. Blancas is a 62 year old male with PMH of chronic atrial fibrillation on xarelto, poorly controlled DMII, HLD, HTN, PVD s/p left AKA (follows with Dr. Goodwin), current tobacco abuse, currently has two untreated pressure ulcers of the RLE who presented to [facility] ED with with chief complaint of syncope that occurred yesterday AM when he went to the bathroom. Patient states he sat down to use the restroom and blacked out, hitting his head on the washer causing a laceration; he states he has not felt well over the past 1.5 months--fatigue, activity intolerance, and weakness. Upon arrival to ED, CT imaging showed areas of encephalomalacia in the right parietal lobe and right cerebral hemisphere despite reported lack of prior stroke by the patient. Pt denies chest pain or dyspnea. Digoxin level <0.3. Temporary pacer pads in place currently, current HR 60's-80's afib per monitor. Pt reports having a LHC many years ago without stent placement. No echo available for review. Cardiology consulted for further recommendations. Mag 1.9 , K 4.3. Past Med Surg Social Fam HX - Past Medical History Medical history: atrial fibrillation, diabetes, hyperlipidemia, hypertension, peripheral artery disease Psychiatric history: anxiety, depression - Past Surgical History Surgical History: orthopedic, other, vascular surgery, other (left AKA) - Social History Smoking Status: Current every day smoker Packs per day: 1.5 PPD Smokeless Tobacco Status: No Alcohol use: none Drug use: none - Family History Mother Race: Family Member Ethnicity: Non- Living Status: Age at : 59 Cause of : Breast cancer Hx Family Cancer: Yes (breast cancer) Medications and Allergies ALPRAZolam [Xanax 0.5 MG Tablet] 0.5 mg PO BID 06/18/17 [History] Amlodipine Besylate 10 mg PO DAILY 06/18/17 [History] Azathioprine [Imuran] 50 mg PO BID 06/18/17 [History] Calcium Carbonate/Vitamin D3 [Calcium 500-Vit D3 200 Tablet] 1 each PO BID 06/18 [History] Dapagliflozin Propanediol [Farxiga] 5 mg PO DAILY 06/18/17 [History] Digoxin [Lanoxin] 0.125 mg PO DAILY 06/18/17 [History] Famotidine [Heartburn Prevention] 20 mg PO DAILY 06/18/17 [History] Fenofibrate Nanocrystallized [Tricor] 145 mg PO DAILY 06/18/17 [History] Gabapentin [Neurontin] 300 mg PO TID 06/18/17 [History] Glimepiride [Amaryl] 1 mg PO QAM 06/18/17 [History] Liraglutide [Victoza 2-Rudy] 0.6 mg SQ DAILY 06/18/17 [History] Lisinopril/Hydrochlorothiazide [Zestoretic 20-25 mg Tablet] 1 each PO DAILY 06/27 [History] Metformin HCl [Glucophage] 1,000 mg PO BID 06/18/17 [History] Metoprolol [Lopressor] 100 mg PO BID 06/18/17 [History] Oxycodone HCl/Acetaminophen [Percocet 5-325 mg Tablet] 1 each PO Q6H PRN [History] Rivaroxaban [Xarelto] 20 mg PO DAILY 06/18/17 [History] Sildenafil Citrate [Viagra] 50 mg PO AD PRN 06/18/17 [History] Simvastatin [Zocor] 40 mg PO HS 06/18/17 [History] SitaGLIPtin [Januvia] 100 mg PO DAILY 06/18/17 [History] Allergies No Known Allergies Allergy (Verified 07/22/15 12:51) All Systems Review: A 10-system review of systems was performed and is negative for pertinent findings except as documented above in the HPI. - Cardiovascular Cardiovascular: as per HPI Physical Examination Vital Signs, Last 4 Hours Temp Pulse Resp BP Pulse Ox 06/19/17 09:34 98.1 F 81 16 115/65 98 06/19/17 07:35 92 General: Conversant HEENT: Atraumatic, Normocephaly Cardiac: Other (irregularly irregular) Lungs: Other (Coarse breath sounds throughout) Neuro: Alert and responsive Abdomen: Soft Skin: Other (large open area to Right coleman) Extremities: Other (left AKA; +1 edema/redness to RLE) Results 06/19/17 04:34 06/19/17 04:34 Lab Results 06/19/17 06/19/17 06/19/17 04:34 04:34 04:34 WBC 5.9 Hgb 12.8 L Hct 44.0 Plt Count 232 INR 1.3 APTT 32.1 Sodium 139 Potassium 4.3 Chloride 102 Carbon Dioxide 30 H BUN 20 Creatinine 1.07 Glucose 161 H Calcium 9.6 Magnesium 1.9 Active Medications Acetaminophen (Tylenol) 650 mg PO Q6HR PRN PRN Reason: Mild Pain (1-3) Stop: 12/18/17 20:48 Hydrocodone Bitart/Acetaminophen ([place] 5-325 Mg) 1 tab PO Q4HR PRN PRN Reason: Moderate Pain (4-6) Stop: 12/18/17 20:48 Alprazolam (Xanax) 0.5 mg PO BID [place] PRN Reason: Protocol Stop: 12/18/17 21:01 Last Admin: 06/19/17 08:04 Dose: 0.5 mg Amlodipine Besylate (Norvasc) 10 mg PO DAILY [facility] Stop: 12/19/17 09:01 Last Admin: 06/19/17 08:04 Dose: 10 mg Azathioprine (Imuran) 50 mg PO BID [facility] Stop: 12/18/17 21:01 Last Admin: 06/19/17 08:04 Dose: 50 mg Dextrose/Water (Dextrose 50% (Syg)) 25 ml IVP AD PRN PRN Reason: Hypoglycemia Stop: 12/18/17 21:03 Fenofibrate (Tricor) 162 mg PO DAILY [facility] Stop: 12/19/17 09:01 Last Admin: 06/19/17 08:04 Dose: 162 mg Gabapentin (Neurontin) 300 mg PO TID [facility] Stop: 12/18/17 21:01 Last Admin: 06/19/17 08:04 Dose: 300 mg Glucagon (Glucagen) 1 mg IM ONCE PRN PRN Reason: Hypoglycemia Stop: 12/18/17 21:03 Glucose (Gluctose) 15 gm PO ONCE PRN PRN Reason: Hypoglycemia Stop: 12/18/17 21:03 Glucose (Gluctose) 30 gm PO ONCE PRN PRN Reason: Hypoglycemia Stop: 12/18/17 21:03 Lisinopril/HCTZ (Prinzide 10-12.5) 2 each PO DAILY [facility] Stop: 12/19/17 09:01 Last Admin: 06/19/17 08:03 Dose: 2 each Dextrose (Dextrose 5%) 1,000 mls @ 100 mls/hr IVC .Q10H PRN PRN Reason: HYPOGLYCEMIA Stop: 12/18/17 21:03 Insulin Detemir (Levemir) 10 unit SQ HS [facility] Stop: 12/18/17 21:16 Last Admin: 06/18/17 23:10 Dose: 10 unit Insulin Human Lispro (Humalog) 4 units SQ TIDWM [facility] Stop: 12/19/17 08:01 Last Admin: 06/19/17 13:17 Dose: Not Given Insulin Human Lispro (Humalog) 0 units SQ TIDAC [place] PRN Reason: Protocol Stop: 12/19/17 07:31 Last Admin: 06/19/17 13:16 Dose: Not Given Insulin Human Lispro (Humalog) 0 units SQ HS [facility] PRN Reason: Protocol Stop: 12/19/17 21:01 Metoprolol Tartrate (Lopressor) 100 mg PO BID [facility] Stop: 12/18/17 21:01 Last Admin: 06/19/17 08:04 Dose: 100 mg Morphine Sulfate (Morphine Sulfate) 2 mg IVP Q4HR PRN PRN Reason: Severe Pain (7-10) Stop: 12/18/17 20:48 Naloxone HCl (Narcan) 0.4 mg IVP Q2MIN PRN PRN Reason: Opioid Reversal Stop: 12/18/17 20:48 Ondansetron HCl (Zofran) 4 mg IVP Q8HR PRN PRN Reason: Nausea And Vomiting Stop: 12/18/17 20:48 Pantoprazole Sodium (Protonix) 40 mg IVP DAILY [facility] Stop: 12/18/17 21:01 Last Admin: 06/19/17 08:03 Dose: 40 mg Silver Nitrate (Silvasorb) 1 appl TP DAILY [facility] Stop: 12/19/17 12:31 Simvastatin (Zocor) 40 mg PO HS [facility] PRN Reason: Protocol Stop: 12/18/17 21:01 Last Admin: 06/18/17 22:07 Dose: 40 mg - Imaging and Cardiology Echo: pending - EKG Interpretation EKG results cardiology: personally reviewed Consult Discharge Plan - Plan Referrals: Sarah Mckeon MD [Primary Care Provider] -
[2017-06-19] MEDS ORDERED: Silvasorb 44.4 ML TUBE TP SCH (12:30)
[2017-06-19 15:16] LABS: Thyroid Stimulating Hormone 1.433 mcIU/mL (0.350-4.840)
--- NOTE | 2017-06-19 17:47 | Vascular/Endovasc Consult Note ---
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 He has required a right common femoral artery bypass with saphenous vein. He now has a poorly healing right calf wound. There are no signs or symptoms of infection at this time. He has no evidence of acute limb ischemia. The patient will ultimately require an angiogram after his acute illness has resolved. At this time, continue with local wound care. (2) Tobacco abuse Current Visit: Yes Status: Chronic (3) Diabetes Current Visit: Yes Status: Chronic Qualifiers: Diabetes mellitus type: type 2 Diabetes mellitus complication status: with skin complications Diabetes mellitus complication detail: with other skin ulcer Diabetes mellitus halfway insulin use: without termite technician use Qualified Code(s): E11.622 - Type 2 diabetes mellitus with other skin ulcer (4) HLD (hyperlipidemia) Current Visit: Yes Status: Chronic Qualifiers: Hyperlipidemia type: pure hypercholesterolemia Qualified Code(s): E78.00 - Pure hypercholesterolemia, unspecified; E78.0 - Pure hypercholesterolemia (5) HTN (hypertension) Current Visit: Yes Status: Chronic Qualifiers: Hypertension type: essential hypertension Qualified Code(s): I10 - Essential (primary) hypertension - History of Present Illness Consult date: 06/19/17 Requesting physician: Jonathon Goodwin Consult reason: Peripheral vascular disease with ulceration Chief complaint: Right lateral leg ulcer History of present illness: Mr. Blancas is a 62 year old male with a history of peripheral vascular disease. He has previously required a left above knee amputation. The patient has also had a right femoral artery bypass with saphenous vein due to an infected right common femoral artery. The procedure was done years ago and he has required angioplasty due to recurrent stenosis in the past. The patient presented to [facility] after a syncopal episode. He hit his head and had a loss of consciousness. He is now alert and comfortable. He was found to have a bradycardic episode while hospitalized and was transferred to [address] [place] [address] for further monitoring. The patient was noted to have a right lateral leg ulcer. Vascular surgery was consulted for further evaluation. He denies chest pain or shrotness of braeth. Past Med Surg Social Fam HX - Past Medical History Medical history: atrial fibrillation, diabetes, hyperlipidemia, hypertension, peripheral artery disease Psychiatric history: anxiety, depression - Past Surgical History Surgical History: orthopedic, other, vascular surgery, other (left AKA) - Social History Smoking Status: Current every day smoker Packs per day: 1.5 PPD Smokeless Tobacco Status: No Alcohol use: none Drug use: none - Family History Mother Race: Family Member Ethnicity: Non- Living Status: Age at : 59 Cause of : Breast cancer Hx Family Cancer: Yes (breast cancer) Medications and Allergies ALPRAZolam [Xanax 0.5 MG Tablet] 0.5 mg PO BID 06/18/17 [History] Amlodipine Besylate 10 mg PO DAILY 06/18/17 [History] Azathioprine [Imuran] 50 mg PO BID 06/18/17 [History] Calcium Carbonate/Vitamin D3 [Calcium 500-Vit D3 200 Tablet] 1 each PO BID 06/18 [History] Dapagliflozin Propanediol [Farxiga] 5 mg PO DAILY 06/18/17 [History] Digoxin [Lanoxin] 0.125 mg PO DAILY 06/18/17 [History] Famotidine [Heartburn Prevention] 20 mg PO DAILY 06/18/17 [History] Fenofibrate Nanocrystallized [Tricor] 145 mg PO DAILY 06/18/17 [History] Gabapentin [Neurontin] 300 mg PO TID 06/18/17 [History] Glimepiride [Amaryl] 1 mg PO QAM 06/18/17 [History] Liraglutide [Victoza 2-Rudy] 0.6 mg SQ DAILY 06/18/17 [History] Lisinopril/Hydrochlorothiazide [Zestoretic 20-25 mg Tablet] 1 each PO DAILY 06/27 [History] Metformin HCl [Glucophage] 1,000 mg PO BID 06/18/17 [History] Metoprolol [Lopressor] 100 mg PO BID 06/18/17 [History] Oxycodone HCl/Acetaminophen [Percocet 5-325 mg Tablet] 1 each PO Q6H PRN [History] Rivaroxaban [Xarelto] 20 mg PO DAILY 06/18/17 [History] Sildenafil Citrate [Viagra] 50 mg PO AD PRN 06/18/17 [History] Simvastatin [Zocor] 40 mg PO HS 06/18/17 [History] SitaGLIPtin [Januvia] 100 mg PO DAILY 06/18/17 [History] Allergies No Known Allergies Allergy (Verified 07/22/15 12:51) All Systems Review: A 10-system review of systems was performed and is negative for pertinent findings except as documented above in the HPI. Exam Vital Signs, Last 4 Hours Temp Pulse Resp BP Pulse Ox 06/19/17 15:51 97.9 F 81 24 122/63 93 06/19/17 15:35 78 20 122/63 General: Present: Conversant, No Apparent Distress HEENT: Present: Pupils equal Neck: Absent: JVD, Lymphadenopathy, Left Carotid bruit, Right Carotid bruit, Tracheal deviation Cardiac: Present: No Murmur Lungs: Present: Normal Breath Sounds Neuro: Present: Alert and responsive Abdomen: Present: Soft, Non-tender Vascular: Present: Normal capillary refill, Pulse, diminished (pedal signals present). Absent: Cyanosis, Edema Skin: Present: Wound/ulcer(s) (right lateral leg ulceration, no erythema or drainage) Consult Discharge Plan - Plan Referrals: Sarah Mckeon MD [Primary Care Provider] -
--- NOTE | 2017-06-19 20:16 | Electrocardiograph Report ---
[place] [id number] Test Date: 2017-06-18 Pat Name: Jonathon Blancas Department: 104 Room: 2N11 Gender: M Manager Privacy: : 1955 Requested By: Chloé Loyd Order Number: [id number] Reading MD: Ej Arreaga MD Measurements Intervals [place] Rate: 66 P: ND: 0 QRS: 75 QRSD: 92 T: 19 QT: 400 QTc: 413 Interpretive Statements ATRIAL FIBRILLATION INCOMPLETE RIGHT BUNDLE BRANCH BLOCK Electronically Signed On 06-19-2017 20:14:54 EDT by Ej Arreaga MD
[2017-06-19] MEDS ORDERED: Insulin LISPRO 300 UNITS/3 ML VIAL SQ SCH (21:00)
[2017-06-19] MEDS: Insulin DETEMIR 100 UNIT/ML X5UNITS SQ SCH (21:00)
[2017-06-20 04:15] LABS: ABG Base Excess 0.6 mEq/L (-2.0 to 3.0); ABG HCO3 35.9 mEQ/L (21-27); ABG Oxygen Saturation 80 % (95-98); ABG PO2 64 mmHg (85-104); ABG TCO2 40.1 mEq/L (20-26); Blood Gas FiO2 100 %
[2017-06-20 04:17] LABS: ABG PCO2 136 mmHg (35-45); ABG PH 7.03 pH Units (7.32-7.45)
[2017-06-20 04:34] LABS: Basophils % 0.3 %; Eosinophils # 0.1 K/mcL (0.0-0.6); Eosinophils % 0.9 %; Hematocrit 49.6 % (37.5-50.1); Hemoglobin 13.8 g/dL (12.9-16.9); Immature Granulocytes % 1.2 % (0-4); Lymphocytes # 1.2 K/mcL (0.6-4.6); Lymphocytes % 8.8 %; Mean Corpuscular HGB Conc 27.8 g/dL (31.6-35.5); Mean Corpuscular Volume 89.9 fL (83.0-100.0); Mean Platelet Volume 9.3 fL (9.4-12.4); Monocytes # 1.1 K/mcL (0.0-1.3); Monocytes % 8.2 %; Neutrophils # 10.6 K/mcL (1.6-8.9); Nucleated Red Blood Cells 0.2 /100 WBC (0); Platelet Count 337 K/mcL (140-400); Red Blood Count 5.52 M/mcL (4.19-5.50); Red Cell Distribution Width 18.2 % (11.5-14.5); Segmented Neutrophils % 80.6 %
[2017-06-20] MEDS ORDERED: Lacri-Lube 3.5 GM TUBE BOTH EYES PRN ×2 (04:41→06:41)
[2017-06-20 04:43] LABS: INR 1.1; Prothrombin Time 12.2 Seconds (9.4-12.1)
[2017-06-20 04:46] LABS: Activated Partial Thrombo Time 32.6 Seconds (26.0-36.0)
[2017-06-20] MEDS ORDERED: *HR* FentaNYL (PF) 100 MCG/2 ML VIAL IVP PRN ×2 (04:46→06:41)
[2017-06-20 04:52] LABS: Anisocytosis 1+ (Not Present); Basophilic Stippling 1+ (Not Present); Hypochromasia Present (Not Present); Polychromasia 1+ (Not Present)
[2017-06-20 04:53] LABS: Platelet Estimate Normal (Normal)
[2017-06-20 05:05] LABS: Alanine Aminotransferase 18 Units/L (0-55); Albumin/Globulin Ratio 0.7 (1.1-2.2); Alkaline Phosphatase 68 Units/L (38-126); Aspartate Amino Transferase 28 Units/L (5-34); BUN/Creatinine Ratio 19 (6-26); Bilirubin,Total 0.4 mg/dL (0.2-1.2); Blood Urea Nitrogen 23 mg/dL (8-26); Calcium 9.1 mg/dL (8.6-10.8); Carbon Dioxide 27 mEq/L (19-29); Chloride 103 mEq/L (98-109); Globulin 4.5 g/dL (2.4-3.5); Glucose 276 mg/dL (70-99); Osmolality,Calculated 298 (280-300); Sodium 137 mEq/L (136-145); Total Protein 7.5 g/dL (6.0-8.3); eGFR For African Americans > 60 (> 60); eGFR For Non-African Americans > 60 (> 60)
[2017-06-20 05:11] LABS: Potassium 5.7 mEq/L (3.5-4.5)
[2017-06-20] MEDS ORDERED: *HR* Midazolam HCl 2 MG/2 ML VIAL ONE (05:11)
[2017-06-20 05:59] LABS: ABG Base Excess 0.1 mEq/L (-2.0 to 3.0); ABG HCO3 30.1 mEQ/L (21-27); ABG Oxygen Saturation 85 % (95-98); ABG PO2 61 mmHg (85-104); ABG TCO2 32.5 mEq/L (20-26)
[2017-06-20 06:02] LABS: Blood Gas FiO2 100 %
[2017-06-20 06:04] LABS: ABG PCO2 77 mmHg (35-45)
--- NOTE | 2017-06-20 06:08 | Event Note ---
<Santo Hernandezbelaama - Last Filed: 06/20/17 06:22> Date of Encounter: 06/20/17 Time of Encounter: 06:03 rapid response was called after 4:00AM due to patient being found unresponsive in room. Patient breathing spontaneously but shallow and tachypenic On arrival to room, patient was unresponsive to any stimuli Vitals: HR 90s, RR 40, BP 160/70, O2 90% on non rebreather Fio2 100% EKG: atrial fibrillation no st-t wave changes. NO change from previous Nurse stated patient refused to wear biPAP overnight. ABG was drawn shows respiratory acidosis with pH 7.03 and pCo2 of 136. Patient was emergently intubated and transferred to ICU. On arrival to ICU patient was found to be hypotensive with BP in systolic 70s. Nurse noticed patient was pulseless and code blue was called. Patient received two minutes of CPR and achieved ROSC. 1L bolus saline wide open administered Right CVC was inserted and patient was started on versed drip. Levophed was ordered, however was not needed as his BP improved to 100/70 <Niko Gould - Last Filed: 06/20/17 23:54> Date of Encounter: 06/20/17 I examined this patient and my medical decision-making was reviewed with the Resident Physician, Dr Hernandez. I agree with the documented findings, disposition and treatment plan as described except to the extent set forth below. My findings are summarized below: On arrival the patient was unresponsive. He was placed on BiPAP however it was apparent that he was not responding to BiPAP treatment. We obtained ABG stat and prepared to insert an advanced airway. Review of his ABG PCO2 was 136 and he had severe acute respiratory acidosis. We proceeded with endotracheal intubation and transfer the patient to the ICU. A repeat ABG at 2 hours showed a significant decrease in his PO2 to 77. PH increased to 7.2. His initial vent settings of assist control at a VC of 500 mL and PEEP of 5 accomplished oxygen saturations of high 80s. I increased the PEEP to 8 and that improved the ventilation. For sedation and I ordered Versed. The patient did drop his blood pressure and required central line placement. Please see procedure notes for both right IJ CVC and endotracheal intubation. The time spent performing these procedures is not included in critical care time. After insertion of the CBC and intubation we obtained chest x-ray to verify placement,. That tubes and lines were appropriately placed. We started pressor therapy with levophed. At the end of my shift and discussed the care with the pulmonary critical care attending. The patient is unstable and there is high probability of emergent and significant clinical decompensation with potential impairment of organ function including respiratory and cardiovascular systems. I spent 50 minutes of critical care time which involved decision making of high complexity to assess, manipulate, and support vital organ system, in order to prevent further life threatening deterioration of the patient's condition. The critical care time was spent in the patient's room or its close proximity and involved obtaining updated history and examining the patient, reviewing cardiac tracing, imaging studies and laboratory data, ordering medications and laboratory studies, making adjustments to ventilatory settings and reevaluating for clinical response.
--- NOTE | 2017-06-20 06:25 | Procedure Note ---
<Santo Hernandez - Last Filed: 06/20/17 06:22> Date of procedure: 06/20/17 Pre-op diagnosis: acute respiratory failure Post-op diagnosis: same Procedure: A time-out was completed verifying correct patient, procedure, site, positioning , and special equipment if applicable. The patient was placed in a flat position. Sedation was obtained using Versed 5mg, and additionally with Etomidate 20mg. The patient was easily ventilated using an ambu bag. The [employer] was used and inserted into the oropharynx at which time there was a Grade 1 view of the vocal cords. A 7.5-frisian endotracheal tube was inserted and visualized going through the vocal cords. The stylette was removed. Colorimetric change was visualized on the CO2 meter. Breath sounds were heard in both lung wray equally. The endotracheal tube was placed at 23 cm, measured at the teeth. was present for the entire procedure. Anesthesia: IV sedation (20mg etomidate and 5mg versed) Surgeon: Santo Hernandez [employer] Internship: Niko Gould Estimated blood loss (cc): 0 Condition: critical Disposition: floor <Niko Gould - Last Filed: 06/20/17 23:57> Procedure: I supervised the resident physician, Dr. Hernandez performing this procedure. Endotracheal intubation was performed skilfully. I personally visualized the ET tube passing through the vocal cords on the gleidoscope monitor. At the end of the intubation we had bilateral equal breath sounds. Chest x-ray verified by myself reveals good tube placement.
--- NOTE | 2017-06-20 06:31 | Procedure Note ---
<Santo Hernandez - Last Filed: 06/20/17 06:25> Date of procedure: 06/20/17 Pre-op diagnosis: hypotension Post-op diagnosis: same Procedure: A time-out was completed verifying correct patient, procedure, site, positioning , and special equipment if applicable. The patient was placed in a dependent position appropriate for central line placement based on the vein to be cannulated. The patients right neck was prepped and draped in sterile fashion. Using ultrasound, right internal jugular vein and surrounding structures were identified. Introducer needle was guided to right IJ with Ultrasound. Guidewire was then inserted and introducer needle was removed. Skin above the entry point of guidewire was nicked and dilator was introduced. A triple lumen 9-[place] Cordis catheter was introduced into the the right Internal jugular vein using the Seldinger technique. The catheter was threaded smoothly over the guide wire and appropriate blood return was obtained. Each lumen of the catheter was evacuated of air and flushed with sterile saline. The catheter was then sutured in place to the skin and a sterile dressing applied. Perfusion to the extremity distal to the point of catheter insertion was checked and found to be adequate. Chest x-ray confirmed placement. Dr. Gould was present for the entire procedure. Anesthesia: IV sedation Surgeon: Santo Hernandez Composing Room Supervisor: Niko Gould Estimated blood loss (cc): 10 Condition: critical Disposition: ICU <Niko Gould - Last Filed: 06/20/17 23:58> Procedure: I supervised the resident physician, Dr. Hernandez performing this procedure and was available throughout the procedure. The procedure was performed skillfully. I personally visualized the cannulation of the right IJ on the ultrasound monitor. At the end of the procedure a chest x-ray confirmed the correct placement of the right IJ central line
[2017-06-20] MEDS ORDERED: Ondansetron 4 MG/2 ML VIAL IVP PRN (06:41)
[2017-06-20] MEDS ORDERED: D5% in Water 1,000 ML IVC PRN (06:41)
[2017-06-20] MEDS ORDERED: Dextrose Gel 15 GM PO PRN ×2 (06:41)
[2017-06-20] MEDS ORDERED: Naloxone 0.4 MG/ML INJ IVP PRN (06:41)
[2017-06-20] MEDS ORDERED: *HR* Dextrose 50 % in Water (Syg) 50 ML SYRINGE IVP PRN (06:41)
--- NOTE | 2017-06-20 06:50 | Pulmonology Consult Note ---
Date of Encounter: 06/20/17 Time of Encounter: 06:50 Assessment and Plan (1) Acute respiratory failure with hypoxia and hypercarbia Current Visit: Yes Status: Acute I spent 35min of Critical Care time with this patient. It involved decision making of high complexity to assess, manipulate, and support vital organ system failure and/or to prevent further life threatening deterioration of the patient' s condition. The time involved in the performance of separately reportable procedures was not counted toward critical care time. Management was reviewed during multidisciplinary critical care rounds. Neuropsych: Sedated on ventilator with Versed and fentanyl goal Thayer score of 2-3 daily sedation holiday does not appear to have focal neurological deficit at this time we will need to reevaluate post-ACLS although given the brevity of this is unclear to me how much if any sequelae will result. Pulm: Acute hypoxic hypercarbic respiratory failure of unclear etiology possibly worsening sepsis complicated by heart failure and pulmonary vascular congestion with underlying obstructive sleep apnea intubated and pulling a low tidal volume ventilatory strategy increasing oxygen requirements which is a combination of cardiogenic and possible noncardiogenic pulmonary edema. Pressures are currently acceptable and we will continue to adjust ventilator for goal peak less than 36. Would benefit from diuresis when provided from underlying hypertension. Additionally elevated the ventilator bundle to prevent ventilator associated pneumonia. For underlying COPD he is receiving schedule bronchodilators and has been given empiric IV steroids were concerned about COPD exacerbation although if this is felt to be less likely at this time Cards: Patient with hypotension requiring vasopressor support unclear if this is a reflection of septic shock or acid based disorder although despite resolution of severe acidemia hypotension has persisted requiring increasing vasopressor dose. This point I will challenge the patient with a colloid bolus for concern of underlying progression of sepsis with possible shock although lactate is currently not elevated determine output remains acceptable we will continue to titrate vasopressor which in this case is norepinephrine to goal mean arterial pressure greater than 60. FEN-GI: PPI prophylaxis and given nothing by mouth for now Renal: No evidence of acute kidney injury continue to monitor renal function daily replace electrolytes as needed ID: Concern for shock possible related to aspiration versus lower extremity cellulitis he is being covered broadly for both concerns with vancomycin and Zosyn cultures have been obtained de-escalate in the next 48 hours based upon microbiological data and clinical course Heme/Onc: DVT prophylaxis given Endo: Glucose monitored Integ/MSK: Has chronic lower extremity ulcers which are related to underlying peripheral vascular disease they may be acutely infected their being dressed appropriately and will continue skin care per routine ICU protocol to prevent pressure ulcers Lines: All lines examined without evidence of infection including: Right central venous catheter urinary Hinton catheter CODE: Full code (2) COPD (chronic obstructive pulmonary disease) Current Visit: Yes Status: Acute Qualifiers: COPD type: COPD with acute exacerbation Qualified Code(s): J44.1 - Chronic obstructive pulmonary disease with (acute) exacerbation (3) EB (obstructive sleep apnea) Current Visit: Yes Status: Acute (4) Shock Current Visit: Yes Status: Acute (5) Syncope Current Visit: Yes Status: Acute Qualifiers: Syncope type: unspecified Qualified Code(s): R55 - Syncope and collapse (6) Non-pressure ulcer of right lower extremity Current Visit: Yes Status: Chronic Qualifiers: Non-pressure ulcer stage: with fat layer exposed Qualified Code(s): L97.912 - Non-pressure chronic ulcer of unspecified part of right lower leg with fat layer exposed (7) Diabetes Current Visit: Yes Status: Chronic Qualifiers: Diabetes mellitus type: type 2 Diabetes mellitus complication status: with skin complications Diabetes mellitus complication detail: with other skin ulcer Diabetes mellitus manager long term care insulin use: without manager long term care use Qualified Code(s): E11.622 - Type 2 diabetes mellitus with other skin ulcer (8) Afib Current Visit: Yes Status: Chronic Qualifiers: Atrial fibrillation type: persistent Qualified Code(s): I48.1 - Persistent atrial fibrillation (9) DVT prophylaxis Current Visit: Yes Status: Acute (10) Sepsis Current Visit: Yes Status: Acute Qualifiers: Sepsis type: sepsis due to unspecified organism Qualified Code(s): A41.9 - Sepsis, unspecified organism (11) Atrial fibrillation Current Visit: Yes Status: Acute Qualifiers: Atrial fibrillation type: persistent Qualified Code(s): I48.1 - Persistent atrial fibrillation (12) Heart failure with preserved ejection fraction Current Visit: Yes Status: Acute History of Present Illness Consult date: 06/20/17 Requesting physician: Niko Gould Reason for consult: hypoxemia Chief complaint: Syncope History of present illness: This is a 62-year-old gentleman who was transferred to the intensive care unit overnight after he was found unresponsive and bradycardic he was also severely hypoxemic at the time of transfer ABG showed a severe respiratory acidosis and hypoxemia he was subsequently intubated transferred to the ICU at the time of transfer was noted to be cyanotic and pulseless one round of ACLS was performed at that time with a rhythm of pulseless electrical activity which resulted in return of spontaneous circulation. Patient was also neurologically intact per the report after ACLS was performed. He has had fluctuating blood pressures over the course of the evening prompting placement of central venous catheter for possible need of vasopressor. Unfortunately the patient's intubated and sedated and unable to participate in discussion so my understanding of this patient's case is currently on the medical record the overnight hospitalist and the bedside nurse. Apparently the patient had come into the hospital for a syncopal episode that was associated with using the restroom. This resulted in a head laceration without evidence of intracerebral hemorrhage per admitting CT scan of the head which was performed. He has been seen by the Cardiology EP service and patient has long- standing atrial fibrillation but apparently this was slow A. fib with rates as low as high teens to low 20s. All his AV foreign blocking agents were held and there is consideration of possible permanent pacemaker placement prior to overnight events. It appears that the patient suffers from her health in general he has history of peripheral arterial disease and chronic lower extremity ulcers obstructive sleep apnea uncontrolled diabetes morbid obesity heart failure with preserved ejection fraction and COPD along with continuation of tobacco abuse. Past Med Surg Social Fam HX - Past Medical History Medical history: atrial fibrillation, diabetes, hyperlipidemia, hypertension, peripheral artery disease Psychiatric history: anxiety, depression - Past Surgical History Surgical History: orthopedic, other, vascular surgery, other (left AKA) - Social History Smoking Status: Current every day smoker Packs per day: 1.5 PPD Smokeless Tobacco Status: No Alcohol use: none Drug use: none - Family History Mother Race: Family Member Ethnicity: Non- Living Status: Age at : 59 Cause of : Breast cancer Hx Family Cancer: Yes (breast cancer) Medications and Allergies ALPRAZolam [Xanax 0.5 MG Tablet] 0.5 mg PO BID 06/18/17 [History] Amlodipine Besylate 10 mg PO DAILY 06/18/17 [History] Azathioprine [Imuran] 50 mg PO BID 06/18/17 [History] Calcium Carbonate/Vitamin D3 [Calcium 500-Vit D3 200 Tablet] 1 each PO BID 06/18 [History] Dapagliflozin Propanediol [Farxiga] 5 mg PO DAILY 06/18/17 [History] Digoxin [Lanoxin] 0.125 mg PO DAILY 06/18/17 [History] Famotidine [Heartburn Prevention] 20 mg PO DAILY 06/18/17 [History] Fenofibrate Nanocrystallized [Tricor] 145 mg PO DAILY 06/18/17 [History] Gabapentin [Neurontin] 300 mg PO TID 06/18/17 [History] Glimepiride [Amaryl] 1 mg PO QAM 06/18/17 [History] Liraglutide [Victoza 2-Rudy] 0.6 mg SQ DAILY 06/18/17 [History] Lisinopril/Hydrochlorothiazide [Zestoretic 20-25 mg Tablet] 1 each PO DAILY 06/27 [History] Metformin HCl [Glucophage] 1,000 mg PO BID 06/18/17 [History] Metoprolol [Lopressor] 100 mg PO BID 06/18/17 [History] Oxycodone HCl/Acetaminophen [Percocet 5-325 mg Tablet] 1 each PO Q6H PRN [History] Rivaroxaban [Xarelto] 20 mg PO DAILY 06/18/17 [History] Sildenafil Citrate [Viagra] 50 mg PO AD PRN 06/18/17 [History] Simvastatin [Zocor] 40 mg PO HS 06/18/17 [History] SitaGLIPtin [Januvia] 100 mg PO DAILY 06/18/17 [History] Allergies No Known Allergies Allergy (Verified 07/22/15 12:51) All Systems: A 10-system review of systems was performed and is negative for pertinent findings except as documented above in the HPI. Physical Examination Vital Signs: Vital Signs, Last 4 Hours Temp Pulse Resp BP Pulse Ox Pulse Ox Pulse Ox 06/20/17 06:00 110 16 103/71 91 06/20/17 05:51 16 115/100 97 06/20/17 05:00 95 16 74/43 94 06/20/17 04:46 81 95 06/20/17 04:35 98.7 F 96 16 79/41 88 06/20/17 04:10 18 92 The patient is intubated and sedated patient's neck is supple the endotracheal tube is correctly positioned he has air entry bilaterally with evidence of rales bilaterally. 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 His pupils equal round and reactive to light once sedation is lifted he is able to respond to his name and his notable spontaneous movement of all extremities his lower extremity reflexes are grossly intact. He is status post left [id number] amputation Ventilator Settings Ventilator Settings: Ventilator Settings, Last 8 Hours Ventilator Mode A/C Ventilator Mode A/C Ventilator Mode A/C Ventilator Tidal Volume 600 Setting Ventilator Tidal Volume 600 Setting Ventilator Tidal Volume 600 Setting Ventilator Respiratory Rate 16 Setting Ventilator Respiratory Rate 16 Setting Ventilator Respiratory Rate 16 Setting Actual Respiratory Rate 16 Actual Respiratory Rate 16 Actual Respiratory Rate 16 Positive End Expiratory 5 Pressure Positive End Expiratory 5 Pressure Positive End Expiratory 5 Pressure Peak Inspiratory Airway 48 Pressure Results - Laboratory Findings CBC and BMP: 06/20/17 04:20 06/20/17 04:46 ABG ABG pH 7.20 pH Units (7.32-7.45) L* D 06/20/17 05:47 ABG pCO2 77 mmHg (35-45) H* D 06/20/17 05:47 ABG pO2 61 mmHg (85-104) L 06/20/17 05:47 ABG O2 Saturation 85 % (95-98) L 06/20/17 05:47 PT/INR, D-dimer PT 12.2 Seconds (9.4-12.1) H 06/20/17 04:20 Abnormal lab findings: Abnormal lab results WBC 13.1 K/mcL (4.3-11.1) H D 06/20/17 04:20 RBC 5.52 M/mcL (4.19-5.50) H 06/20/17 04:20 MCH 25.0 pg (28.0-33.3) L 06/20/17 04:20 MCHC 27.8 g/dL (31.6-35.5) L 06/20/17 04:20 RDW 18.2 % (11.5-14.5) H 06/20/17 04:20 MPV 9.3 fL (9.4-12.4) L 06/20/17 04:20 Neutrophils # 10.6 K/mcL (1.6-8.9) H 06/20/17 04:20 Nucleated RBCs/100 WBC 0.2 /100 WBC (0) H 06/20/17 04:20 Large Platelets Present (Not Present) A 06/19/17 04:34 Polychromasia 1+ (Not Present) A 06/20/17 04:20 Hypochromasia Present (Not Present) A 06/20/17 04:20 Basophilic Stippling 1+ (Not Present) A 06/20/17 04:20 Anisocytosis 1+ (Not Present) A 06/20/17 04:20 Macrocytosis Present (Not Present) A 06/19/17 04:34 PT 12.2 Seconds (9.4-12.1) H 06/20/17 04:20 ABG pH 7.20 pH Units (7.32-7.45) L* D 06/20/17 05:47 ABG pCO2 77 mmHg (35-45) H* D 06/20/17 05:47 ABG pO2 61 mmHg (85-104) L 06/20/17 05:47 ABG HCO3 30.1 mEQ/L (21-27) H 06/20/17 05:47 ABG Total CO2 32.5 mEq/L (20-26) H 06/20/17 05:47 ABG O2 Saturation 85 % (95-98) L 06/20/17 05:47 Potassium 5.7 mEq/L (3.5-4.5) H D 06/20/17 04:46 Glucose 276 mg/dL (70-99) H 06/20/17 04:46 POC Glucose 288 (58-89) H 06/20/17 04:37 Hemoglobin A1c 6.5 % (-5.6) H 06/19/17 04:34 Albumin 3.0 g/dL (3.5-5.0) L 06/20/17 04:46 Globulin 4.5 g/dL (2.4-3.5) H 06/20/17 04:46 Albumin/Globulin Ratio 0.7 (1.1-2.2) L 06/20/17 04:46 Triglycerides 284 mg/dL (< 150) H 06/19/17 04:34 VLDL Cholesterol, Calc 57 mg/dL (< 31) H 06/19/17 04:34 HDL Cholesterol 25 mg/dL (40-59) L 06/19/17 04:34 Cholesterol/HDL Ratio 5.6 (0-4.9) H 06/19/17 04:34 Urine Glucose (UA) >=1000 mg/dL (Normal) H 06/18/17 16:05 Digoxin < 0.3 ng/mL (0.8-2.0) L 06/19/17 04:34 - Microbiology Findings Microbiology Findings: Microbiology, Last 48 Hours 06/18/17 23:20 Wound Culture - Preliminary Right Leg Gram Negative Farrukh Gram Positive Cocci - Diagnostic Findings Chest x-ray: report reviewed, image reviewed PFT's: report reviewed (Restrictive spirometry restrictive lung volumes reduced DLCO) - Clinical Findings Intake & Output: Intake & Output 06/19/17 06/19/17 06/20/17 15:59 23:59 07:59 Intake Total Output Total 150 / 150 Balance -150 / -150 Weight 130.5 kg 130.5 kg Consult Discharge Plan - Plan Referrals: Sarah Mckeon MD [Primary Care Provider] -
[2017-06-20] MEDS ORDERED: ceFAZolin 1,000 MG in D5% in Water (Mini-Bag+) 100 ML IVPB SCH (08:00)
[2017-06-20] MEDS ORDERED: Lacri-Lube 3.5 GM TUBE BOTH EYES SCH (08:00)
[2017-06-20] MEDS ORDERED: Vancomycin 1 EACH in D5% in Water 250 ML IVPB SCH (08:00)
[2017-06-20] MEDS: Norepinephrine 4 MG in D5% in Water 250 ML IVC SCH (08:15)
[2017-06-20] MEDS: FentaNYL (PF) 1,000 MCG in 0.9 % Sodium Chloride 80 ML IVC SCH ×2 (08:35→21:44)
[2017-06-20 08:41] LABS: ABG Base Excess 2.1 mEq/L (-2.0 to 3.0); ABG HCO3 30.3 mEQ/L (21-27); ABG Oxygen Saturation 84 % (95-98); ABG PCO2 63 mmHg (35-45); ABG PH 7.29 pH Units (7.32-7.45); ABG PO2 54 mmHg (85-104); ABG TCO2 32.2 mEq/L (20-26)
[2017-06-20 08:42] LABS: Blood Gas FiO2 22 %
[2017-06-20] MEDS ORDERED: predniSONE 20 MG TABLET GTUBE SCH (09:00)
[2017-06-20] MEDS ORDERED: Chlorhexidine Rinse 15 ML MOUTHWASH MM SCH (09:00)
[2017-06-20] MEDS: Piperacillin/Tazobactam 3.375 GM in D5% in Water (Mini-Bag+) 100 ML IVPB SCH ×3 (09:45→23:31)
[2017-06-20] MEDS: MethylPREDNISolone 40 MG/ML VIAL IVP SCH ×3 (09:45→23:31)
[2017-06-20] MEDS: Pantoprazole 40 MG VIAL IVP SCH (09:45)
[2017-06-20] MEDS: Chlorhexidine Rinse 15 ML MOUTHWASH MM SCH ×2 (09:47→20:29)
--- NOTE | 2017-06-20 09:49 | Electrophysiology ProgressNote ---
Date of Encounter: 06/20/17 Time of Encounter: 08:30 Assessment and Plan (1) Syncope Current Visit: Yes Status: Acute Syncopal event 06/18/17 which prompted ED evaluation--laceration to head. No acute finding on head CT. Reports fatigue, activity intolerance for the past months; symptoms typically worse with exertion. Denies chest pain or dyspnea. Initial diagnosis of A-Fib, 10-15 years ago and has been on Digoxin and BB since that time. Anticoagulated on xarelto, held on admission due to syncope and laceration. Events of early this AM reviewed/discussed with Dr. Nicholas. Rapid response due to respiratory failure requiring intubation/ICU transfer, patient then became hypotensive (56/0), PEA arrest, achieved ROSC after 2 minutes of CPR. He was then started on a Levophed gtt. Per documentation, HR remained in the 90s (afib ) leading up to rapid response. ECGs and tele reviewed with Dr. Nicholas: found to have nocturnal pauses up to 10 seconds and lowest HR noted 18 bpm, A-Fib. ECG this afternoon HR 28, afib with slow ventricular response--patient had been given AM doses of Digoxin (125 MCG) and metoprolol tartrate (100 mg) that morning. AV foreign agents have been now held for 24 hours, HR improved--no significant pause noted since admission to ICU, avg HR=96. Discussed with Dr. Han Nicholas who recommends additional wash-out period given high dose of betablocker leading up to admission. Will continue to follow and monitor HR to determine if PPM is indicated. Qualifiers: Syncope type: unspecified Qualified Code(s): R55 - Syncope and collapse (2) Afib Current Visit: Yes Status: Chronic Long-standing history of atrial fibrillation; has been rate controlled on oral betablocker/digoxin and anticoagulated on Xarelto. Reports remote hx of cardioversion 10-15+ years ago. Last dose of Xarleto 06/17/17 PM. Qualifiers: Atrial fibrillation type: persistent Qualified Code(s): I48.1 - Persistent atrial fibrillation Discussion w patient/family: The assessment and plan as outlined above was discussed with the patient and/or family members who expressed understanding and agreement. All questions were answered. Thank you for involving us in the care of your patient. Please call with any questions. The patient was discussed and reviewed with Dr. Han Nicholas. Subjective Principal diagnosis: Afib slow ventricular response Interval history: Seen and examined. Overnight/visual display associate events reviewed and discussed with Dr. Han Nicholas. Intubated/sedated upon exam this morning. Objective Vital Signs, Last 4 Hours Temp Pulse Resp BP Pulse Ox 06/20/17 08:15 98.5 F 06/20/17 08:00 108 16 81/44 95 06/20/17 07:39 82 16 86/42 92 06/20/17 06:37 98.1 F 85 30 160/79 83 06/20/17 06:00 110 16 103/71 91 06/20/17 05:51 16 115/100 97 General: Other (intubated/sedated) HEENT: Atraumatic, Normocephaly Cardiac: Other (irregularly irregular) Lungs: Other (coarse breath sounds anteriorally ) Neuro: Other (intubated/sedated) Abdomen: Soft Extremities: Other (Left AKA; RLE +1-2 edema/redness/open wound to [place]) Results 06/20/17 04:20 06/20/17 04:46 Lab Results 06/19/17 06/20/17 06/20/17 04:34 04:20 04:20 WBC 13.1 H D Hgb 13.8 Hct 49.6 Plt Count 337 INR 1.1 APTT 32.6 Sodium 139 Potassium 4.3 Chloride 102 Carbon Dioxide 30 H BUN 20 Creatinine 1.07 Glucose 161 H Calcium 9.6 Magnesium 1.9 Total Bilirubin AST ALT Alkaline Phosphatase Troponin I TSH 1.433 06/20/17 06/20/17 04:20 04:46 WBC Hgb Hct Plt Count INR APTT Sodium 137 Potassium 5.7 H D Chloride 103 Carbon Dioxide 27 BUN 23 Creatinine 1.19 Glucose 276 H Calcium 9.1 Magnesium Total Bilirubin 0.4 AST 28 ALT 18 Alkaline Phosphatase 68 Troponin I 0.00 TSH Active Medications Albuterol Sulfate (Albuterol Inhaler) 4 puff IH [id number] [facility]ISLAW Stop: 12/20/17 08:01 Last Admin: 06/20/17 07:45 Dose: 4 puff Artificial Tears (Lacri-Lube) 1 appl BOTH EYES Q2HR PRN; Protocol PRN Reason: Dry Eyes Stop: 12/20/17 04:42 Artificial Tears (Lacri-Lube) 1 appl BOTH EYES Q4HR [facility] PRN Reason: Protocol Stop: 12/20/17 08:01 Chlorhexidine Gluconate (Chlorhexidine Rinse) 15 ml MM BID [facility] Stop: 12/20/17 09:01 Last Admin: 06/20/17 09:47 Dose: 15 ml Dextrose/Water (Dextrose 50% (Syg)) 25 ml IVP AD PRN PRN Reason: Hypoglycemia Stop: 12/18/17 21:03 Fentanyl Citrate (Fentanyl (Pf)) 50 mcg IVP Q1H PRN PRN Reason: agitation Stop: 12/20/17 04:47 Midazolam HCl 50 mg/ Sodium (Chloride) 100 mls @ 4 mls/hr IVC CONT STANISLAW; 2 MG/HR PRN Reason: Protocol Stop: 12/20/17 04:46 Last Admin: 06/20/17 09:34 Dose: 3 mg/hr, 6 mls/hr Fentanyl Citrate 1,000 mcg/ (Sodium Chloride) 100 mls @ 5 mls/hr IVC CONT STANISLAW; 50 MCG/HR PRN Reason: Protocol Stop: 12/20/17 07:31 Last Admin: 06/20/17 08:35 Dose: 50 mcg/hr, 5 mls/hr Norepinephrine Bitartrate 4 mg (/ Dextrose) 250 mls @ 30 mls/hr IVC CONT STANISLAW; 8 MCG/MIN PRN Reason: Protocol Stop: 12/20/17 07:31 Last Admin: 06/20/17 08:15 Dose: 4 mcg/min, 15 mls/hr Piperacillin Sod/Tazobactam (Sod 3.375 gm/ Dextrose) 100 mls @ 25 mls/hr IVPB Q8HR [facility] Stop: 12/20/17 08:01 Last Admin: 06/20/17 09:45 Dose: 25 mls/hr Vancomycin HCl 2,000 mg/ (Dextrose) 250 mls @ 167 mls/hr IVPB RPHPROT ST[facility]ISLAW PRN Reason: Protocol Stop: 12/20/17 08:01 Albumin Human (Alburx 5%) 12.5 gm in 250 mls @ 999 mls/hr IVPB AD PRN PRN Reason: as directed Insulin Human Lispro (Humalog) 0 units SQ Q6HR [facility] PRN Reason: Protocol Stop: 12/20/17 12:01 Methylprednisolone (Solu-Medrol) 40 mg IVP Q8HR [facility] Stop: 12/20/17 08:01 Last Admin: 06/20/17 09:45 Dose: 40 mg Naloxone HCl (Narcan) 0.4 mg IVP Q2MIN PRN PRN Reason: Opioid Reversal Stop: 12/18/17 20:48 Ondansetron HCl (Zofran) 4 mg IVP Q8HR PRN PRN Reason: Nausea And Vomiting Stop: 12/18/17 20:48 Pantoprazole Sodium (Protonix) 40 mg IVP DAILY [facility] Stop: 12/18/17 21:01 Last Admin: 06/20/17 09:45 Dose: 40 mg Silver Nitrate (Silvasorb) 1 appl TP DAILY [facility] Stop: 12/19/17 12:31 - Imaging and Cardiology Echo: report reviewed Other Results: Tele: avg HR=96 Afib. No significant pause or event. - EKG Interpretation EKG results cardiology: personally reviewed Consult Discharge Plan - Plan Referrals: Sarah Mckeon MD [Primary Care Provider] -
[2017-06-20] MEDS ORDERED: Vancomycin 2,000 MG in D5% in Water 500 ML IVPB ONE (10:00)
[2017-06-20] MEDS: Lacri-Lube 3.5 GM TUBE BOTH EYES SCH ×6 (12:13→23:32)
[2017-06-20] MEDS: Insulin LISPRO 300 UNITS/3 ML VIAL SQ SCH ×3 (13:12→23:48)
[2017-06-20] MEDS: Silvasorb 44.4 ML TUBE TP SCH (14:13)
[2017-06-20] MEDS: *HR* Heparin 5,000 UNIT/ML VIAL SQ SCH ×2 (14:25→20:29)
--- NOTE | 2017-06-20 23:22 | Vascular/[facility] Progress Note ---
Date of Encounter: 06/20/17 Time of Encounter: 16:15 - Assessment and plan (1) Atheroscler autologous vein bypass graft right leg w/ulceration calf Current Visit: Yes Status: Acute The patient has a long history of peripheral vascular disease with ulceration. He has required a right common femoral artery bypass with saphenous vein. He now has a poorly healing right calf wound. He is acutely ill and intubated at this time. Will consider angiogram after resolution of acute illness. Continue with local wound care. 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 He now is intubated. No fevers overnight. Vital Signs, Last 4 Hours Pulse Resp BP Pulse Ox 06/20/17 23:08 24 116/68 94 06/20/17 23:00 151 22 116/68 95 06/20/17 22:00 147 22 137/75 95 06/20/17 21:46 22 103/65 95 06/20/17 21:00 129 22 134/70 97 06/20/17 19:47 111 22 91/72 96 06/20/17 19:30 22 98/53 96 - Physical Examination HEENT: Present: Atraumatic Cardiac: Present: Reg Rate and Rhythm Lungs: Present: Normal Breath Sounds Vascular: Present: Normal capillary refill. Absent: Clubbing, Cyanosis, Edema Abdomen: Present: Soft Skin: Present: Wound/ulcer(s) (right leg ulcer without erythema, minimal serous drainage) Results 06/20/17 04:20 06/20/17 04:46 Lab Results, Last 24 hours 06/20/17 06/20/17 06/20/17 04:20 04:20 04:20 WBC 13.1 H D Hgb 13.8 Hct 49.6 Plt Count 337 INR 1.1 APTT 32.6 Sodium Potassium Chloride Carbon Dioxide BUN Creatinine Glucose Calcium Total Bilirubin AST ALT Alkaline Phosphatase Troponin I 0.00 06/20/17 04:46 WBC Hgb Hct Plt Count INR APTT Sodium 137 Potassium 5.7 H D Chloride 103 Carbon Dioxide 27 BUN 23 Creatinine 1.19 Glucose 276 H Calcium 9.1 Total Bilirubin 0.4 AST 28 ALT 18 Alkaline Phosphatase 68 Troponin I Consult Discharge Plan - Plan Referrals: Sarah Mckeon MD [Primary Care Provider] -
[2017-06-20] MEDS: *HR* Metoprolol 5 MG/5 ML VIAL IVP PRN (23:31)
[2017-06-20] MEDS: Vancomycin 2,000 MG in D5% in Water 500 ML IVPB SCH (23:31)
[2017-06-21 03:22] LABS: Basophils % 0.1 %; Hematocrit 38.7 % (37.5-50.1); Immature Granulocytes % 0.6 % (0-4); Lymphocytes # 0.3 K/mcL (0.6-4.6); Lymphocytes % 4.6 %; Mean Corpuscular HGB Conc 29.7 g/dL (31.6-35.5); Mean Corpuscular Volume 84.1 fL (83.0-100.0); Mean Platelet Volume 9.3 fL (9.4-12.4); Monocytes # 0.2 K/mcL (0.0-1.3); Monocytes % 2.6 %; Neutrophils # 6.5 K/mcL (1.6-8.9); Platelet Count 202 K/mcL (140-400); Red Cell Distribution Width 17.8 % (11.5-14.5); Segmented Neutrophils % 92.1 %
[2017-06-21 03:26] LABS: Hemoglobin 11.5 g/dL (12.9-16.9)
[2017-06-21 03:29] LABS: INR 1.3; Prothrombin Time 13.7 Seconds (9.4-12.1)
[2017-06-21] MEDS: Lacri-Lube 3.5 GM TUBE BOTH EYES SCH ×5 (03:29→21:17)
[2017-06-21 03:33] LABS: Alanine Aminotransferase 18 Units/L (0-55); Albumin/Globulin Ratio 0.7 (1.1-2.2); Alkaline Phosphatase 61 Units/L (38-126); Aspartate Amino Transferase 17 Units/L (5-34); BUN/Creatinine Ratio 26 (6-26); Bilirubin,Total 0.5 mg/dL (0.2-1.2); Blood Urea Nitrogen 32 mg/dL (8-26); Calcium 8.9 mg/dL (8.6-10.8); Carbon Dioxide 29 mEq/L (19-29); Chloride 101 mEq/L (98-109); Globulin 4.3 g/dL (2.4-3.5); Glucose 295 mg/dL (70-99); Magnesium 1.7 mg/dL (1.6-2.6); Osmolality,Calculated 300 (280-300); Potassium 4.7 mEq/L (3.5-4.5); Sodium 136 mEq/L (136-145); Total Protein 7.3 g/dL (6.0-8.3); eGFR For African Americans > 60 (> 60); eGFR For Non-African Americans 59 (> 60)
[2017-06-21 03:54] LABS: ABG Base Excess 3.7 mEq/L (-2.0 to 3.0); ABG HCO3 30.1 mEQ/L (21-27); ABG Oxygen Saturation 97 % (95-98); ABG PCO2 52 mmHg (35-45); ABG PH 7.37 pH Units (7.32-7.45); ABG PO2 97 mmHg (85-104); ABG TCO2 31.7 mEq/L (20-26)
[2017-06-21 03:55] LABS: Blood Gas FiO2 60 %
[2017-06-21] MEDS: Insulin LISPRO 300 UNITS/3 ML VIAL SQ SCH ×3 (04:28→21:17)
[2017-06-21] MEDS: *HR* Heparin 5,000 UNIT/ML VIAL SQ SCH ×3 (06:25→21:17)
--- NOTE | 2017-06-21 07:07 | Pulmonology Progress Note ---
<Sumanth Hancock W - Last Filed: 06/21/17 09:18> Date of Encounter: 06/21/17 Assessment and Plan (1) Acute respiratory failure with hypoxia and hypercarbia Current Visit: Yes Status: Acute (2) COPD (chronic obstructive pulmonary disease) Current Visit: Yes Status: Acute Qualifiers: COPD type: COPD with acute exacerbation Qualified Code(s): J44.1 - Chronic obstructive pulmonary disease with (acute) exacerbation (3) EB (obstructive sleep apnea) Current Visit: Yes Status: Acute (4) Shock Current Visit: Yes Status: Acute (5) Syncope Current Visit: Yes Status: Acute Qualifiers: Syncope type: unspecified Qualified Code(s): R55 - Syncope and collapse (6) Non-pressure ulcer of right lower extremity Current Visit: Yes Status: Chronic Qualifiers: Non-pressure ulcer stage: with fat layer exposed Qualified Code(s): L97.912 - Non-pressure chronic ulcer of unspecified part of right lower leg with fat layer exposed (7) Diabetes Current Visit: Yes Status: Chronic Qualifiers: Diabetes mellitus type: type 2 Diabetes mellitus complication status: with skin complications Diabetes mellitus complication detail: with other skin ulcer Diabetes mellitus mcfp insulin use: without intermediate card tender use Qualified Code(s): E11.622 - Type 2 diabetes mellitus with other skin ulcer (8) Afib Current Visit: Yes Status: Chronic Qualifiers: Atrial fibrillation type: persistent Qualified Code(s): I48.1 - Persistent atrial fibrillation (9) DVT prophylaxis Current Visit: Yes Status: Acute (10) Sepsis Current Visit: Yes Status: Acute Qualifiers: Sepsis type: sepsis due to unspecified organism Qualified Code(s): A41.9 - Sepsis, unspecified organism (11) Atrial fibrillation Current Visit: Yes Status: Acute Qualifiers: Atrial fibrillation type: persistent Qualified Code(s): I48.1 - Persistent atrial fibrillation (12) Heart failure with preserved ejection fraction Current Visit: Yes Status: Acute Objective PUL Vital signs: Last Vital Signs Temp 98.2 F 06/21/17 08:38 Pulse 104 06/21/17 09:00 Resp 22 06/21/17 09:00 BP 137/81 06/21/17 09:00 Pulse Ox 100 06/21/17 09:00 Ventilator Settings Ventilator Settings: Ventilator Settings, Last 8 Hours Ventilator Mode A/C Ventilator Mode A/C Ventilator Mode A/C Ventilator Mode A/C Ventilator Mode A/C Ventilator Mode A/C Ventilator Mode A/C Ventilator Mode A/C Ventilator Mode A/C Ventilator Mode A/C Ventilator Mode A/C Ventilator Tidal Volume 450 Setting Ventilator Tidal Volume 450 Setting Ventilator Tidal Volume 450 Setting Ventilator Tidal Volume 450 Setting Ventilator Tidal Volume 450 Setting Ventilator Tidal Volume 450 Setting Ventilator Tidal Volume 450 Setting Ventilator Tidal Volume 450 Setting Ventilator Tidal Volume 450 Setting Ventilator Tidal Volume 450 Setting Ventilator Tidal Volume 450 Setting Ventilator Respiratory Rate 22 Setting Ventilator Respiratory Rate 22 Setting Ventilator Respiratory Rate 22 Setting Ventilator Respiratory Rate 22 Setting Ventilator Respiratory Rate 22 Setting Ventilator Respiratory Rate 22 Setting Ventilator Respiratory Rate 22 Setting Ventilator Respiratory Rate 22 Setting Ventilator Respiratory Rate 22 Setting Ventilator Respiratory Rate 22 Setting Ventilator Respiratory Rate 22 Setting Actual Respiratory Rate 22 Actual Respiratory Rate 22 Actual Respiratory Rate 22 Actual Respiratory Rate 22 Actual Respiratory Rate 22 Actual Respiratory Rate 22 Actual Respiratory Rate 22 Actual Respiratory Rate 22 Actual Respiratory Rate 22 Actual Respiratory Rate 22 Positive End Expiratory 10 Pressure Positive End Expiratory 10 Pressure Positive End Expiratory 10 Pressure Positive End Expiratory 12 Pressure Positive End Expiratory 12 Pressure Positive End Expiratory 12 Pressure Positive End Expiratory 12 Pressure Positive End Expiratory 12 Pressure Positive End Expiratory 12 Pressure Positive End Expiratory 12 Pressure Positive End Expiratory 12 Pressure Peak Inspiratory Airway 34 Pressure Peak Inspiratory Airway 43 Pressure Peak Inspiratory Airway 37 Pressure Peak Inspiratory Airway 37 Pressure Peak Inspiratory Airway 35 Pressure Peak Inspiratory Airway 35 Pressure Peak Inspiratory Airway 35 Pressure Peak Inspiratory Airway 40 Pressure Peak Inspiratory Airway 36 Pressure Peak Inspiratory Airway 34 Pressure Results - Laboratory Findings CBC and BMP: 06/21/17 03:15 06/21/17 03:15 ABG ABG pH 7.37 pH Units (7.32-7.45) 06/21/17 03:44 ABG pCO2 52 mmHg (35-45) H 06/21/17 03:44 ABG pO2 97 mmHg (85-104) 06/21/17 03:44 ABG O2 Saturation 97 % (95-98) 06/21/17 03:44 PT/INR, D-dimer PT 13.7 Seconds (9.4-12.1) H 06/21/17 03:15 Abnormal lab findings: Abnormal lab results Hgb 11.5 g/dL (12.9-16.9) L D 06/21/17 03:15 MCH 25.0 pg (28.0-33.3) L 06/21/17 03:15 MCHC 29.7 g/dL (31.6-35.5) L 06/21/17 03:15 RDW 17.8 % (11.5-14.5) H 06/21/17 03:15 MPV 9.3 fL (9.4-12.4) L 06/21/17 03:15 Lymphocytes # 0.3 K/mcL (0.6-4.6) L 06/21/17 03:15 Nucleated RBCs/100 WBC 0.2 /100 WBC (0) H 06/20/17 04:20 Large Platelets Present (Not Present) A 06/19/17 04:34 Polychromasia 1+ (Not Present) A 06/20/17 04:20 Hypochromasia Present (Not Present) A 06/20/17 04:20 Basophilic Stippling 1+ (Not Present) A 06/20/17 04:20 Anisocytosis 1+ (Not Present) A 06/20/17 04:20 Macrocytosis Present (Not Present) A 06/19/17 04:34 PT 13.7 Seconds (9.4-12.1) H 06/21/17 03:15 ABG pCO2 52 mmHg (35-45) H 06/21/17 03:44 ABG HCO3 30.1 mEQ/L (21-27) H 06/21/17 03:44 ABG Total CO2 31.7 mEq/L (20-26) H 06/21/17 03:44 ABG Base Excess 3.7 mEq/L (-2.0 to 3.0) H 06/21/17 03:44 Potassium 4.7 mEq/L (3.5-4.5) H D 06/21/17 03:15 BUN 32 mg/dL (8-26) H 06/21/17 03:15 Est GFR (Non-Af Amer) 59 (> 60) L 06/21/17 03:15 Glucose 295 mg/dL (70-99) H 06/21/17 03:15 POC Glucose 250 (58-89) H 06/20/17 23:44 Hemoglobin A1c 6.5 % (-5.6) H 06/19/17 04:34 Albumin 3.0 g/dL (3.5-5.0) L 06/21/17 03:15 Globulin 4.3 g/dL (2.4-3.5) H 06/21/17 03:15 Albumin/Globulin Ratio 0.7 (1.1-2.2) L 06/21/17 03:15 Triglycerides 284 mg/dL (< 150) H 06/19/17 04:34 VLDL Cholesterol, Calc 57 mg/dL (< 31) H 06/19/17 04:34 HDL Cholesterol 25 mg/dL (40-59) L 06/19/17 04:34 Cholesterol/HDL Ratio 5.6 (0-4.9) H 06/19/17 04:34 Urine Glucose (UA) >=1000 mg/dL (Normal) H 06/18/17 16:05 Digoxin < 0.3 ng/mL (0.8-2.0) L 06/19/17 04:34 - Microbiology Findings Microbiology Findings: Microbiology, Last 48 Hours 06/18/17 23:20 Wound Culture - Preliminary Right Leg Serratia marcescens Gram Positive Cocci - Clinical Findings Intake & Output: Intake & Output 06/20/17 06/21/17 06/21/17 23:59 07:59 15:59 Intake Total 233 / 233 600 / 600 Output Total 300 / 300 200 / 200 260 / 260 Balance -67 / -67 400 / 400 -260 / -260 Consult Discharge Plan - Plan Referrals: Sarah Mckeon MD [Primary Care Provider] - - Attending Attestation I examined this patient and my medical decision-making was reviewed with the Resident Physician. I agree with the documented findings, disposition and treatment plan as described except to the extent set forth below. Patient seen and examined at bedside Labs, radiology, chart personally reviewed. Management was reviewed during multidisciplinary critical care rounds. Neuropsych: Sedated on ventilator with Versed and fentanyl goal Novelty score of 2 cont daily sedation holiday does not appear to have focal neurological deficit and he is able to nod head to questions that are asked appropriately. Pulm: Acute hypoxic hypercarbic respiratory failure s/t EB, Benzo Use, and Cardiogenic Pulmonary Edema. Acceptable oxygenation and ventilation. weaning PEEP and FIO2, cont Low tidal volume ventilatory strategy he is not a candidate for spontaneous breathing trial because of vent requirement. I do not feel he has a COPD exacerbation and so we will stop steroids. Continue bronchodilators for COPD Cards: History of heart failure with preserved ejection fraction along with atrial fibrillation Vasopressors have been weaned off he was initially bradycardic on admission to the hospital but now atrial fibrillation with rapid ventricular response electrophysiology following plan to start beta shanta. Diuresis for pulmonary edema FEN-GI: PPI prophylaxis we will start enteral nutrition today Renal: No evidence of acute kidney injury continue to monitor renal function daily replace electrolytes as needed while actively diuresing ID: Sepsis suspected with source being possible lower extremity cellulitis we will culture this were positive for Serratia and staph we will de-escalate pending culture sensitivity Heme/Onc: DVT prophylaxis given Endo: Glucose monitored Integ/MSK: Has chronic lower extremity ulcers which are related to underlying peripheral vascular disease they may be acutely infected their being dressed appropriately and will continue skin care per routine ICU protocol to prevent pressure ulcers Lines: All lines examined without evidence of infection including: Right central venous catheter urinary Hinton catheter CODE: Full code <Win Kirk - Last Filed: 06/21/17 10:33> Date of Encounter: 06/21/17 Time of Encounter: 07:07 Assessment and Plan (1) Acute respiratory failure with hypoxia and hypercarbia Current Visit: Yes Status: Acute Patient currently intubated, on CPAP with a PEEP of 12 and FiO2 of 60%. Tolerating well. Malone scale 2, easily awakened, follows all commands, denies any pain, shakes head yes and no appropriately to questioning. Central drip is at 50 g per hour, Versed 2 mg per hour. Acidosis has corrected. PH 7.37, CO2 52, bicarb 30.1. Currently on Solu-Medrol 40 mg every 8 hours for COPD. CXR shows pulmonary edema, RLE edema. Hypoxia and hypercarbia likely multifactoral due to COPD, CHF, sedative medications given to patient prior to ICU transfer. Continue to wean FiO2 and PEEP. Weaned at this morning to FiO2 of 50% and PEEP of 10. Wean steroids as tolerated Continue albuterol inhaler as needed Start diuresis with IV Lasix 40 mg. Consider twice daily dosing of IV Lasix as blood pressure tolerates. Net diuresis goal today is -2L Start tube feeds (2) COPD (chronic obstructive pulmonary disease) Current Visit: Yes Status: Acute History of COPD. Currently on Solu-Medrol 40 mg every 8 hours, albuterol nebulizer as needed. Wean steroids as tolerated. Qualifiers: COPD type: COPD with acute exacerbation Qualified Code(s): J44.1 - Chronic obstructive pulmonary disease with (acute) exacerbation (3) Heart failure with preserved ejection fraction Current Visit: Yes Status: Acute Signs of pulmonary edema on chest x-ray, right lower extremity edema. IV Lasix to get rid of excess fluid See above plans. (4) EB (obstructive sleep apnea) Current Visit: Yes Status: Acute Patient currently intubated and on CPAP. If extubated, recommend BiPAP at night to prevent any decompensation overnight (5) Sepsis Current Visit: Yes Status: Acute Patient was on norepinephrine until yesterday evening due to hypotension. This has been weaned off as of 6 PM yesterday evening. Blood pressure currently 110 over 80s. Currently on Zosyn and vancomycin for right lower extremity cellulitis. We will likely deescalate today. Continue to monitor blood pressures. De-escalate antibiotic coverage due to right lower extremity culture and sensitivity back. Qualifiers: Sepsis type: sepsis due to unspecified organism Qualified Code(s): A41.9 - Sepsis, unspecified organism (6) Shock Current Visit: Yes Status: Acute See above (7) Non-pressure ulcer of right lower extremity Current Visit: Yes Status: Chronic Right lower extremity ulcer of lateral coleman. Localized erythema but no pus drainage. Currently on Zosyn and vancomycin for right lower extremity cellulitis. Wound care consulted. Vascular consulted and following. Vascular service may order angiogram of right lower extremity for further assessment once more stable due to history of right femoral bypass. Continue wound care protocol to prevent further ulcers De-escalate antibiotic coverage due to right lower extremity culture and sensitivity back. Qualifiers: Non-pressure ulcer stage: with fat layer exposed Qualified Code(s): L97.912 - Non-pressure chronic ulcer of unspecified part of right lower leg with fat layer exposed (8) Syncope Current Visit: Yes Status: Acute 06/21/17 - MRI of the brain negative for any acute infarct. CT of the head showed right parietal and cerebral encephalomalacia. Syncope may have been related more to medication or A. fib RVR Qualifiers: Syncope type: unspecified Qualified Code(s): R55 - Syncope and collapse (9) Atrial fibrillation Current Visit: Yes Status: Acute Patient currently in A. fib with a rate in the low 100s to 110s, blood pressure stable at 110 over 80s. Patient has IV Lopressor 5 mg every 6 hours as needed for paroxysmal A. fib RVR. Continue Lopressor IV for rate control. Plan to eventually transition to by mouth medication per cardio recs. Qualifiers: Atrial fibrillation type: persistent Qualified Code(s): I48.1 - Persistent atrial fibrillation (10) Diabetes Current Visit: Yes Status: Chronic Blood sugar this morning was 295. He is currently on medium dose sliding scale index. Continue sliding scale index, switch to high dose SSI q4h. Add on Levemir 10 units. Adjust accordingly. Qualifiers: Diabetes mellitus type: type 2 Diabetes mellitus complication status: with skin complications Diabetes mellitus complication detail: with other skin ulcer Diabetes mellitus intermediate card tender insulin use: without intermediate card tender use Qualified Code(s): E11.622 - Type 2 diabetes mellitus with other skin ulcer (11) DVT prophylaxis Current Visit: Yes Status: Acute Heparin 5000 units every 8 hours Subjective Principal diagnosis: Afib slow ventricular response Interval history: Patient had no major acute events overnight. He was weaned off norepinephrine drip yesterday around 6 PM. His blood pressure has been stable since. He was also placed on IV metoprolol 5 mg every 6 hours as needed for A. fib RVR. He did have a few episodes of paroxysmal A. fib RVR where his rate went to the 130s. Blood pressure remained stable during these episodes and the patient was given Lopressor 5 mg and tolerated well. Otherwise, this morning the patient is Malone scale 2, easily awakened, follows all commands, denies any pain, shakes head yes and no appropriately to questioning. Currently on CPAP with a PEEP of 12 and FiO2 of 60%, will turn this down to FiO2 of 50% and PEEP of 10. Objective PUL Vital signs: Last Vital Signs Temp 98.9 F 06/21/17 04:00 Pulse 135 06/21/17 06:00 Resp 22 06/21/17 06:00 BP 117/72 06/21/17 06:00 Pulse Ox 98 06/21/17 06:00 General appearance: no acute distress, other (Resting comfortably, easily awakened to voice) Eyes: nonicteric ENT: other (ET tube placed) Neck: supple, no lymphadenopathy Effort: other (Currently on CPAP, tolerating well. FiO2 60%, PEEP 12, tidal volume 450, Peak pressure 36) Auscultation: bilateral: diminished breath sounds (Lower lobes) Cardiovascular: irregular rhythm (Paroxysmal A. fib RVR; rate currently low 100s) Gastrointestinal: normoactive bowel sounds, soft, non-tender, non-distended Integumentary: decubitus ulcer (Right lateral coleman approximately 2 cm x 1 cm, localized erythema, no pus drainage) Extremities: no cyanosis, cool, edema (Mild to moderate edema of the right lower extremity. Venous stasis dermatitis present on right lower extremity. 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 Moves all extremities appropriately. PERRLA, EOMI. Unable to assess all CN due to intubation. No focal neuro deficits appreciated on limited exam. ) mood appropriate, affect normal Ventilator Settings Ventilator Settings: Ventilator Settings, Last 8 Hours Ventilator Mode A/C Ventilator Mode A/C Ventilator Mode A/C Ventilator Mode A/C Ventilator Mode A/C Ventilator Mode A/C Ventilator Mode A/C Ventilator Mode A/C Ventilator Mode A/C Ventilator Mode A/C Ventilator Mode A/C Ventilator Mode A/C Ventilator Tidal Volume 450 Setting Ventilator Tidal Volume 450 Setting Ventilator Tidal Volume 450 Setting Ventilator Tidal Volume 450 Setting Ventilator Tidal Volume 450 Setting Ventilator Tidal Volume 450 Setting Ventilator Tidal Volume 450 Setting Ventilator Tidal Volume 450 Setting Ventilator Tidal Volume 450 Setting Ventilator Tidal Volume 450 Setting Ventilator Tidal Volume 450 Setting Ventilator Tidal Volume 450 Setting Ventilator Respiratory Rate 22 Setting Ventilator Respiratory Rate 22 Setting Ventilator Respiratory Rate 22 Setting Ventilator Respiratory Rate 22 Setting Ventilator Respiratory Rate 22 Setting Ventilator Respiratory Rate 22 Setting Ventilator Respiratory Rate 22 Setting Ventilator Respiratory Rate 22 Setting Ventilator Respiratory Rate 22 Setting Ventilator Respiratory Rate 22 Setting Ventilator Respiratory Rate 22 Setting Ventilator Respiratory Rate 22 Setting Actual Respiratory Rate 22 Actual Respiratory Rate 22 Actual Respiratory Rate 22 Actual Respiratory Rate 22 Actual Respiratory Rate 22 Actual Respiratory Rate 22 Actual Respiratory Rate 22 Actual Respiratory Rate 22 Actual Respiratory Rate 22 Actual Respiratory Rate 22 Actual Respiratory Rate 24 Positive End Expiratory 12 Pressure Positive End Expiratory 12 Pressure Positive End Expiratory 12 Pressure Positive End Expiratory 12 Pressure Positive End Expiratory 12 Pressure Positive End Expiratory 12 Pressure Positive End Expiratory 12 Pressure Positive End Expiratory 12 Pressure Positive End Expiratory 12 Pressure Positive End Expiratory 12 Pressure Positive End Expiratory 12 Pressure Positive End Expiratory 12 Pressure Peak Inspiratory Airway 37 Pressure Peak Inspiratory Airway 35 Pressure Peak Inspiratory Airway 35 Pressure Peak Inspiratory Airway 35 Pressure Peak Inspiratory Airway 40 Pressure Peak Inspiratory Airway 36 Pressure Peak Inspiratory Airway 34 Pressure Peak Inspiratory Airway 34 Pressure Peak Inspiratory Airway 35 Pressure Peak Inspiratory Airway 35 Pressure Peak Inspiratory Airway 35 Pressure Results - Laboratory Findings CBC and BMP: 06/21/17 03:15 06/21/17 03:15 ABG ABG pH 7.37 pH Units (7.32-7.45) 06/21/17 03:44 ABG pCO2 52 mmHg (35-45) H 06/21/17 03:44 ABG pO2 97 mmHg (85-104) 06/21/17 03:44 ABG O2 Saturation 97 % (95-98) 06/21/17 03:44 PT/INR, D-dimer PT 13.7 Seconds (9.4-12.1) H 06/21/17 03:15 Abnormal lab findings: Abnormal lab results Hgb 11.5 g/dL (12.9-16.9) L D 06/21/17 03:15 MCH 25.0 pg (28.0-33.3) L 06/21/17 03:15 MCHC 29.7 g/dL (31.6-35.5) L 06/21/17 03:15 RDW 17.8 % (11.5-14.5) H 06/21/17 03:15 MPV 9.3 fL (9.4-12.4) L 06/21/17 03:15 Lymphocytes # 0.3 K/mcL (0.6-4.6) L 06/21/17 03:15 Nucleated RBCs/100 WBC 0.2 /100 WBC (0) H 06/20/17 04:20 Large Platelets Present (Not Present) A 06/19/17 04:34 Polychromasia 1+ (Not Present) A 06/20/17 04:20 Hypochromasia Present (Not Present) A 06/20/17 04:20 Basophilic Stippling 1+ (Not Present) A 06/20/17 04:20 Anisocytosis 1+ (Not Present) A 06/20/17 04:20 Macrocytosis Present (Not Present) A 06/19/17 04:34 PT 13.7 Seconds (9.4-12.1) H 06/21/17 03:15 ABG pCO2 52 mmHg (35-45) H 06/21/17 03:44 ABG HCO3 30.1 mEQ/L (21-27) H 06/21/17 03:44 ABG Total CO2 31.7 mEq/L (20-26) H 06/21/17 03:44 ABG Base Excess 3.7 mEq/L (-2.0 to 3.0) H 06/21/17 03:44 Potassium 4.7 mEq/L (3.5-4.5) H D 06/21/17 03:15 BUN 32 mg/dL (8-26) H 06/21/17 03:15 Est GFR (Non-Af Amer) 59 (> 60) L 06/21/17 03:15 Glucose 295 mg/dL (70-99) H 06/21/17 03:15 POC Glucose 250 (58-89) H 06/20/17 23:44 Hemoglobin A1c 6.5 % (-5.6) H 06/19/17 04:34 Albumin 3.0 g/dL (3.5-5.0) L 06/21/17 03:15 Globulin 4.3 g/dL (2.4-3.5) H 06/21/17 03:15 Albumin/Globulin Ratio 0.7 (1.1-2.2) L 06/21/17 03:15 Triglycerides 284 mg/dL (< 150) H 06/19/17 04:34 VLDL Cholesterol, Calc 57 mg/dL (< 31) H 06/19/17 04:34 HDL Cholesterol 25 mg/dL (40-59) L 06/19/17 04:34 Cholesterol/HDL Ratio 5.6 (0-4.9) H 06/19/17 04:34 Urine Glucose (UA) >=1000 mg/dL (Normal) H 06/18/17 16:05 Digoxin < 0.3 ng/mL (0.8-2.0) L 06/19/17 04:34 - Microbiology Findings Microbiology Findings: Microbiology, Last 48 Hours 06/18/17 23:20 Wound Culture - Preliminary Right Leg Serratia marcescens Gram Positive Cocci - Clinical Findings Intake & Output: Intake & Output 06/20/17 06/20/17 06/21/17 15:59 23:59 07:59 Intake Total 1095 / 1095 233 / 233 500 / 500 Output Total 700 / 700 300 / 300 200 / 200 Balance 395 / 395 -67 / -67 300 / 300
[2017-06-21] MEDS ORDERED: Furosemide 40 MG/4 ML VIAL IVP ONE (07:16)
[2017-06-21] MEDS: MethylPREDNISolone 40 MG/ML VIAL IVP SCH ×2 (08:03→16:14)
[2017-06-21] MEDS: Piperacillin/Tazobactam 3.375 GM in D5% in Water (Mini-Bag+) 100 ML IVPB SCH ×2 (08:04→16:14)
[2017-06-21] MEDS: Chlorhexidine Rinse 15 ML MOUTHWASH MM SCH ×2 (08:04→21:16)
[2017-06-21] MEDS: Pantoprazole 40 MG VIAL IVP SCH ×2 (08:04→21:17)
[2017-06-21] MEDS: Silvasorb 44.4 ML TUBE TP SCH (08:23)
[2017-06-21] MEDS: *HR* Metoprolol 5 MG/5 ML VIAL IVP PRN (09:19)
--- NOTE | 2017-06-21 09:55 | Cardiology Progress Note ---
Date of Encounter: 06/21/17 Time of Encounter: 09:10 Assessment and Plan (1) Syncope Current Visit: Yes Status: Acute Syncopal event 06/18/17 which prompted ED evaluation--laceration to head. No acute finding on head CT. Reports fatigue, activity intolerance for the past months; symptoms typically worse with exertion. Denies chest pain or dyspnea. Initial diagnosis of A-Fib, 10-15 years ago and has been on Digoxin and BB since that time. Anticoagulated on xarelto, held on admission due to syncope and laceration. 06/19/17: ECGs and tele reviewed with Dr. Nicholas: found to have nocturnal pauses up to 10 seconds and lowest HR noted 18 bpm on, A-Fib. ECG this afternoon HR 28 , afib with slow ventricular response--patient had been given AM doses of Digoxin (125 MCG) and metoprolol tartrate (100 mg) that morning. Events of 06/20/17 reviewed/discussed with Dr. Nicholas. Rapid response due to respiratory failure requiring intubation/ICU transfer, patient then became hypotensive (56/0), PEA arrest, achieved ROSC after 2 minutes of CPR. He was then started on a Levophed gtt. Per documentation, HR remained in the 90s (afib ) leading up to rapid response. AV foreign agents have been now held for >24 hours. 24 hour tele: avg QX=410, no significant pause (max 2.5 seconds); 12 hour tele: avg FK=193 afib--no pause, no bradycardia. 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 No indication for PPM at this time. Recommend resuming betablocker--metoprolol tartrate 25 mg po BID for persistent HR >100. Discontinue digoxin. Plan communicated with primary service, Cardiology will sign-off, please call with questions. Will arrange for outpatient follow-up. Qualifiers: Syncope type: unspecified Qualified Code(s): R55 - Syncope and collapse (2) Afib Current Visit: Yes Status: Chronic Long-standing history of atrial fibrillation; has been rate controlled on oral betablocker/digoxin and anticoagulated on Xarelto. Reports remote hx of cardioversion 10-15+ years ago. Last dose of Xarleto 06/17/17 PM--resume when okay by ICU team. Qualifiers: Atrial fibrillation type: persistent Qualified Code(s): I48.1 - Persistent atrial fibrillation Discussion w patient/family: The assessment and plan as outlined above was discussed with the patient and/or family members who expressed understanding and agreement. All questions were answered. Thank you for involving us in the care of your patient. Please call with any questions. The patient was discussed and reviewed with Dr. Farfan; Cardiology will sign-off , please call with questions. Subjective Principal diagnosis: Afib slow ventricular response Interval history: Seen and examined. Remains intubated; however he is alert and responds (nods) appropriately to verbal commands. Patient discussed with ICU team. Objective Vital Signs, Last 4 Hours Temp Pulse Resp BP Pulse Ox 06/21/17 09:00 104 22 137/81 100 06/21/17 08:38 98.2 F 06/21/17 08:00 102 22 130/72 97 06/21/17 07:51 22 115/87 98 06/21/17 06:00 135 22 117/72 98 General: Other (intubated. ) HEENT: Atraumatic, Normocephaly Cardiac: Other (tachycardiac, irregularly irregular) Lungs: Other (anterior coarse breath sounds) Neuro: Alert and responsive Abdomen: Soft Skin: No rashes noted on visualized skin Musculoskeletal: No Chest Wall Tenderness Extremities: Other (Left AKA; right LE edema/erythema, open wound to [place]. ) Results 06/21/17 03:15 06/21/17 03:15 Lab Results 06/21/17 06/21/17 06/21/17 03:15 03:15 03:15 WBC 7.0 Hgb 11.5 L D Hct 38.7 Plt Count 202 INR 1.3 Sodium 136 Potassium 4.7 H D Chloride 101 Carbon Dioxide 29 BUN 32 H Creatinine 1.25 Glucose 295 H Calcium 8.9 Magnesium 1.7 Total Bilirubin 0.5 AST 17 ALT 18 Alkaline Phosphatase 61 Active Medications Albuterol Sulfate (Albuterol Inhaler) 4 puff IH [id number] [facility] Stop: 12/20/17 08:01 Last Admin: 06/21/17 07:49 Dose: 4 puff Artificial Tears (Lacri-Lube) 1 appl BOTH EYES Q2HR PRN; Protocol PRN Reason: Dry Eyes Stop: 12/20/17 04:42 Artificial Tears (Lacri-Lube) 1 appl BOTH EYES Q4HR [place] PRN Reason: Protocol Stop: 12/20/17 08:01 Last Admin: 06/21/17 08:04 Dose: 1 appl Chlorhexidine Gluconate (Chlorhexidine Rinse) 15 ml MM BID [facility] Stop: 12/20/17 09:01 Last Admin: 06/21/17 08:04 Dose: 15 ml Dextrose/Water (Dextrose 50% (Syg)) 25 ml IVP AD PRN PRN Reason: Hypoglycemia Stop: 12/18/17 21:03 Fentanyl Citrate (Fentanyl (Pf)) 50 mcg IVP Q1H PRN PRN Reason: agitation Stop: 12/20/17 04:47 Heparin Sodium (Porcine) (Heparin) 5,000 unit SQ Q8HCO [facility] Stop: 12/20/17 14:01 Last Admin: 06/21/17 06:25 Dose: 5,000 unit Dextrose (Dextrose 5%) 1,000 mls @ 100 mls/hr IVC .Q10H PRN PRN Reason: HYPOGLYCEMIA Stop: 12/18/17 21:03 Midazolam HCl 50 mg/ Sodium (Chloride) 100 mls @ 4 mls/hr IVC CONT [facility]ISLAW; 2 MG/HR PRN Reason: Protocol Stop: 12/20/17 04:46 Last Admin: 06/20/17 19:46 Dose: 2 mg/hr, 4 mls/hr Fentanyl Citrate 1,000 mcg/ (Sodium Chloride) 100 mls @ 5 mls/hr IVC CONT [facility]; 50 MCG/HR PRN Reason: Protocol Stop: 12/20/17 07:31 Last Admin: 06/20/17 21:44 Dose: 50 mcg/hr, 5 mls/hr Norepinephrine Bitartrate 4 mg (/ Dextrose) 250 mls @ 30 mls/hr IVC CONT [facility]ISLA[facility]; 8 MCG/MIN PRN Reason: Protocol Stop: 12/20/17 07:31 Last Titration: 06/20/17 15:45 Dose: 0 mcg/min, 0 mls/hr Piperacillin Sod/Tazobactam (Sod 3.375 gm/ Dextrose) 100 mls @ 25 mls/hr IVPB Q8HR [facility] Stop: 12/20/17 08:01 Last Admin: 06/21/17 08:04 Dose: 25 mls/hr Vancomycin HCl 2,000 mg/ (Dextrose) 500 mls @ 250 mls/hr IVPB Q12H [facility] Stop: 12/20/17 23:01 Last Infusion: 06/21/17 01:30 Dose: Infused Potassium Chloride (Potassium Chloride 20 Meq/100 Ml) 20 meq in 100 mls @ 100 mls/hr IVPB Q1H PRN PRN Reason: electrolyte protocol Stop: 12/21/17 09:39 Insulin Human Lispro (Humalog) 0 units SQ Q6HR [facility] PRN Reason: Protocol Stop: 12/20/17 12:01 Last Admin: 06/21/17 04:28 Dose: 10 units Methylprednisolone (Solu-Medrol) 40 mg IVP Q8HR [place] Stop: 12/20/17 08:01 Last Admin: 06/21/17 08:03 Dose: 40 mg Metoprolol Tartrate (Lopressor) 5 mg IVP Q6HR PRN PRN Reason: Tachyarrhythmias Stop: 12/20/17 22:50 Last Admin: 06/21/17 09:19 Dose: 5 mg Naloxone HCl (Narcan) 0.4 mg IVP Q2MIN PRN PRN Reason: Opioid Reversal Stop: 12/18/17 20:48 Ondansetron HCl (Zofran) 4 mg IVP Q8HR PRN PRN Reason: Nausea And Vomiting Stop: 12/18/17 20:48 Pantoprazole Sodium (Protonix) 40 mg IVP DAILY [facility] Stop: 12/18/17 21:01 Last Admin: 06/21/17 08:04 Dose: 40 mg Silver Nitrate (Silvasorb) 1 appl TP DAILY [facility] Stop: 12/19/17 12:31 Last Admin: 06/21/17 08:23 Dose: 1 appl - Imaging and Cardiology Echo: report reviewed - EKG Interpretation EKG results cardiology: personally reviewed Consult Discharge Plan - Plan Referrals: Sarah Mckeon MD [Primary Care Provider] -
[2017-06-21] MEDS ORDERED: Insulin LISPRO 300 UNITS/3 ML VIAL SQ SCH (10:30)
[2017-06-21] MEDS: Vancomycin 2,000 MG in D5% in Water 500 ML IVPB SCH (10:54)
--- NOTE | 2017-06-21 13:03 | Carotid Imaging Report ---
Carotid Duplex Patient Name:Jonathon Blancas Order Number:[id number] Procedure Date:06/19/2017 Date:1955ge:62 yrs Gender:Male Location:[facility] Room #: 2N11 Steward/Stewardess Smoke Room:Mazin Obrien RN Referring MD:Homar Cade, CR[employer] SPECIALIST field recorder:Sarah Mckeon MD Reading MD:Griffin Cabrera MD , FACS Primary Indications:Syncope Risk Factors Yes/No Hypertension Yes Diabetes Yes Hypercholesterolemia Yes Smoking Current Yes Hx of TIA No Hx of CVA No Anticoagulants Yes Hx of CAD/PTCA No Previous Vascular Surgery Impressions: Findings: Bilateral carotid systems have nonstenotic plaque. Recommendations: Test completed on 06/19/2017 at 12:40:00 pm. Findings Carotid Duplex: Right: The right proximal common carotid artery has a PSV of 112 cm/s and a EDV of 22 cm/s. The right mid common carotid artery has a PSV of 72 cm/s and a EDV of 15 cm/s. The right distal common carotid artery has a PSV of 91 cm/s and a EDV of 20 cm/s. There is nonstenotic plaque in the right bifurcation with a PSV of 74 cm/s and a EDV of 20 cm/s. There is smooth heterogeneous plaque. There is nonstenotic plaque in the right proximal internal carotid artery with a PSV of 105 cm/s and a EDV of 20 cm/s. There is smooth heterogeneous plaque. The right mid internal carotid artery has a PSV of 102 cm/s and a EDV of 28 cm/s. The right distal internal carotid artery has a PSV of 97 cm/s and a EDV of 24 cm/s. The right eca has a PSV of 142 cm/s and a EDV of 16 cm/s. The right vertebral artery has a PSV of 74 cm/s and a EDV of 23 cm/s. Left: The left proximal common carotid artery has a PSV of 130 cm/s and a EDV of 31 cm/s. The left mid common carotid artery has a PSV of 115 cm/s and a EDV of 22 cm/s. The left distal common carotid artery has a PSV of 94 cm/s and a EDV of 23 cm/s. There is nonstenotic plaque in the left bifurcation with a PSV of 89 cm/s and a EDV of 28 cm/s. There is smooth heterogeneous plaque. There is nonstenotic plaque in the left proximal internal carotid artery with a PSV of 77 cm/s and a EDV of 24 cm/s. The left mid internal carotid artery has a PSV of 109 cm/s and a EDV of 24 cm/s. The left distal internal carotid artery has a PSV of 109 cm/s and a EDV of 36 cm/s. The left eca has a PSV of 145 cm/s and a EDV of 29 cm/s. The left vertebral artery has a PSV of 58 cm/s and a EDV of 12 cm/s. Prior Study: No prior study available for comparison. Carotid Results Right PSV EDV Assessment Proximal CCA 112 22 Normal Mid CCA 72 15 Normal Distal CCA 91 20 Normal Bifurcation 74 20 Non Stenotic Plaque Proximal ICA 105 20 Non Stenotic Plaque Mid ICA 102 28 Normal Distal ICA 97 24 Normal ECA 142 16 Normal Vertebral Artery 74 23 Normal Left PSV EDV Assessment Proximal CCA 130 31 Normal Mid CCA 115 22 Normal Distal CCA 94 23 Normal Bifurcation 89 28 Non Stenotic Plaque Proximal ICA 77 24 Non Stenotic Plaque Mid ICA 109 24 Normal Distal ICA 109 36 Normal ECA 145 29 Normal Vertebral Artery 58 12 Normal Ratio's Right ICA/CCA Ratio: 1.50 ICA/CCA Values: 105/72 Left ICA/CCA Ratio: 0.95 ICA/CCA Values: 109/115 Updated by Griffni Cabrera MD, FACS on 06/21/2017 12:57:59 PM Griffin Cabrera MD electronically signed on 06/21/2017 12:58:29 PM with status of Final
[2017-06-21] MEDS: FentaNYL (PF) 1,000 MCG in 0.9 % Sodium Chloride 80 ML IVC SCH ×2 (14:33→19:23)
--- NOTE | 2017-06-21 14:59 | Electrocardiograph Report ---
[place] [id number] Test Date: 2017-06-20 Pat Name: Jonathon Blancas Department: 109 Room: [facility] Gender: M Pet Feeder: [facility] [place] : 1955 Requested By: Ofelia Mccarty Order Number: [id number] Reading MD: Farida Nicholas Measurements Intervals [place] Rate: 88 P: TN: 0 QRS: 55 QRSD: 99 T: 29 QT: 341 QTc: 386 Interpretive Statements ATRIAL FIBRILLATION NONSPECIFIC T-WAVE ABNORMALITY ABNORMAL RHYTHM ECG Electronically Signed On 06-21-2017 14:57:34 EDT by Farida Nicholas
[2017-06-21] MEDS: Furosemide 40 MG/4 ML VIAL IVP SCH (16:14)
[2017-06-21] MEDS: Norepinephrine 4 MG in D5% in Water 250 ML IVC SCH (19:23)
[2017-06-21] MEDS ORDERED: Insulin DETEMIR 100 UNIT/ML X5UNITS SQ SCH (21:00)
[2017-06-22] MEDS: Piperacillin/Tazobactam 3.375 GM in D5% in Water (Mini-Bag+) 100 ML IVPB SCH ×2 (00:11→07:35)
[2017-06-22] MEDS: MethylPREDNISolone 40 MG/ML VIAL IVP SCH ×2 (00:11→07:35)
[2017-06-22] MEDS: Lacri-Lube 3.5 GM TUBE BOTH EYES SCH ×7 (00:11→20:56)
[2017-06-22] MEDS: Insulin LISPRO 300 UNITS/3 ML VIAL SQ SCH ×6 (00:11→20:38)
[2017-06-22] MEDS: FentaNYL (PF) 1,000 MCG in 0.9 % Sodium Chloride 80 ML IVC SCH (03:55)
[2017-06-22 03:56] LABS: Hematocrit 41.3 % (37.5-50.1); Hemoglobin 12.3 g/dL (12.9-16.9); Immature Granulocytes % 0.3 % (0-4); Lymphocytes # 0.3 K/mcL (0.6-4.6); Lymphocytes % 4.6 %; Mean Corpuscular HGB Conc 29.8 g/dL (31.6-35.5); Mean Corpuscular Hemoglobin 24.8 pg (28.0-33.3); Mean Corpuscular Volume 83.4 fL (83.0-100.0); Monocytes # 0.3 K/mcL (0.0-1.3); Monocytes % 4.6 %; Neutrophils # 6.3 K/mcL (1.6-8.9); Platelet Count 223 K/mcL (140-400); Red Blood Count 4.95 M/mcL (4.19-5.50); Red Cell Distribution Width 17.4 % (11.5-14.5); Segmented Neutrophils % 90.5 %
[2017-06-22 04:01] LABS: Ionized Calcium 1.07 mmol/L (1.15-1.35)
[2017-06-22 04:06] LABS: Activated Partial Thrombo Time 26.5 Seconds (26.0-36.0)
[2017-06-22 04:09] LABS: Albumin 3.1 g/dL (3.5-5.0); BUN/Creatinine Ratio 34 (6-26); Blood Urea Nitrogen 38 mg/dL (8-26); Calcium 9.3 mg/dL (8.6-10.8); Carbon Dioxide 32 mEq/L (19-29); Chloride 99 mEq/L (98-109); Glucose 234 mg/dL (70-99); Magnesium 1.9 mg/dL (1.6-2.6); Osmolality,Calculated 303 (280-300); Phosphorous 2.8 mg/dL (2.3-4.7); Potassium 4.3 mEq/L (3.5-4.5); Sodium 138 mEq/L (136-145); eGFR For African Americans > 60 (> 60); eGFR For Non-African Americans > 60 (> 60)
[2017-06-22 04:33] LABS: INR 1.2; Prothrombin Time 12.9 Seconds (9.4-12.1)
[2017-06-22 04:46] LABS: ABG Base Excess 8.6 mEq/L (-2.0 to 3.0); ABG HCO3 35.3 mEQ/L (21-27); ABG Oxygen Saturation 90 % (95-98); ABG PCO2 57 mmHg (35-45); ABG PO2 59 mmHg (85-104)
[2017-06-22 04:47] LABS: Blood Gas FiO2 40 %
[2017-06-22] MEDS ORDERED: Vancomycin 1,250 MG in D5% in Water 250 ML IVPB SCH (06:00)
[2017-06-22] MEDS: *HR* Heparin 5,000 UNIT/ML VIAL SQ SCH ×3 (06:14→20:36)
[2017-06-22] MEDS: Chlorhexidine Rinse 15 ML MOUTHWASH MM SCH ×2 (07:35→20:37)
[2017-06-22] MEDS: Furosemide 40 MG/4 ML VIAL IVP SCH ×2 (07:35→17:26)
[2017-06-22] MEDS: Pantoprazole 40 MG VIAL IVP SCH ×2 (07:36→20:37)
[2017-06-22] MEDS: Norepinephrine 4 MG in D5% in Water 250 ML IVC SCH (07:38)
[2017-06-22] MEDS: *HR* Metoprolol 5 MG/5 ML VIAL IVP PRN ×2 (08:44→15:28)
--- NOTE | 2017-06-22 08:54 | Pulmonology Progress Note ---
<Sumanth Hancock W - Last Filed: 06/22/17 11:45> Date of Encounter: 06/22/17 Assessment and Plan (1) Acute respiratory failure with hypoxia and hypercarbia Current Visit: Yes Status: Acute (2) COPD (chronic obstructive pulmonary disease) Current Visit: Yes Status: Acute Qualifiers: COPD type: COPD with acute exacerbation Qualified Code(s): J44.1 - Chronic obstructive pulmonary disease with (acute) exacerbation (3) EB (obstructive sleep apnea) Current Visit: Yes Status: Acute (4) Shock Current Visit: Yes Status: Acute (5) Syncope Current Visit: Yes Status: Acute Qualifiers: Syncope type: unspecified Qualified Code(s): R55 - Syncope and collapse (6) Non-pressure ulcer of right lower extremity Current Visit: Yes Status: Chronic Qualifiers: Non-pressure ulcer stage: with fat layer exposed Qualified Code(s): L97.912 - Non-pressure chronic ulcer of unspecified part of right lower leg with fat layer exposed (7) Diabetes Current Visit: Yes Status: Chronic Qualifiers: Diabetes mellitus type: type 2 Diabetes mellitus complication status: with skin complications Diabetes mellitus complication detail: with other skin ulcer Diabetes mellitus assisted insulin use: without termite treater helper use Qualified Code(s): E11.622 - Type 2 diabetes mellitus with other skin ulcer (8) Afib Current Visit: Yes Status: Chronic Qualifiers: Atrial fibrillation type: persistent Qualified Code(s): I48.1 - Persistent atrial fibrillation (9) DVT prophylaxis Current Visit: Yes Status: Acute (10) Sepsis Current Visit: Yes Status: Acute Qualifiers: Sepsis type: sepsis due to unspecified organism Qualified Code(s): A41.9 - Sepsis, unspecified organism (11) Atrial fibrillation Current Visit: Yes Status: Acute Qualifiers: Atrial fibrillation type: persistent Qualified Code(s): I48.1 - Persistent atrial fibrillation (12) Heart failure with preserved ejection fraction Current Visit: Yes Status: Acute Objective PUL Vital signs: Last Vital Signs Temp 97.0 F L 06/22/17 07:35 Pulse 80 06/22/17 10:11 Resp 19 06/22/17 10:11 BP 124/72 06/22/17 10:11 Pulse Ox 92 06/22/17 10:11 Ventilator Settings Ventilator Settings: Ventilator Settings, Last 8 Hours Ventilator Mode CPAP Ventilator Mode CPAP Ventilator Mode CPAP Ventilator Mode CPAP Ventilator Mode A/C Ventilator Mode A/C Ventilator Mode A/C Ventilator Mode A/C Ventilator Mode A/C Ventilator Tidal Volume 450 Setting Ventilator Tidal Volume 450 Setting Ventilator Tidal Volume 450 Setting Ventilator Tidal Volume 450 Setting Ventilator Tidal Volume 450 Setting Ventilator Tidal Volume 450 Setting Ventilator Tidal Volume 450 Setting Ventilator Tidal Volume 450 Setting Ventilator Respiratory Rate 16 Setting Ventilator Respiratory Rate 16 Setting Ventilator Respiratory Rate 16 Setting Ventilator Respiratory Rate 16 Setting Ventilator Respiratory Rate 16 Setting Actual Respiratory Rate 19 Actual Respiratory Rate 16 Actual Respiratory Rate 16 Actual Respiratory Rate 17 Actual Respiratory Rate 16 Actual Respiratory Rate 16 Actual Respiratory Rate 16 Actual Respiratory Rate 16 Positive End Expiratory 5 Pressure Positive End Expiratory 5 Pressure Positive End Expiratory 5 Pressure Positive End Expiratory 5 Pressure Positive End Expiratory 5 Pressure Positive End Expiratory 5 Pressure Positive End Expiratory 5 Pressure Positive End Expiratory 5 Pressure Positive End Expiratory 5 Pressure Peak Inspiratory Airway 11 Pressure Peak Inspiratory Airway 11 Pressure Peak Inspiratory Airway 31 Pressure Peak Inspiratory Airway 11 Pressure Peak Inspiratory Airway 31 Pressure Peak Inspiratory Airway 31 Pressure Peak Inspiratory Airway 34 Pressure Peak Inspiratory Airway 38 Pressure Results - Laboratory Findings CBC and BMP: 06/22/17 03:45 06/22/17 03:45 ABG ABG pH 7.40 pH Units (7.32-7.45) 06/22/17 04:36 ABG pCO2 57 mmHg (35-45) H 06/22/17 04:36 ABG pO2 59 mmHg (85-104) L 06/22/17 04:36 ABG O2 Saturation 90 % (95-98) L 06/22/17 04:36 PT/INR, D-dimer PT 12.9 Seconds (9.4-12.1) H 06/22/17 03:45 Abnormal lab findings: Abnormal lab results Hgb 12.3 g/dL (12.9-16.9) L 06/22/17 03:45 MCH 24.8 pg (28.0-33.3) L 06/22/17 03:45 MCHC 29.8 g/dL (31.6-35.5) L 06/22/17 03:45 RDW 17.4 % (11.5-14.5) H 06/22/17 03:45 MPV 9.0 fL (9.4-12.4) L 06/22/17 03:45 Lymphocytes # 0.3 K/mcL (0.6-4.6) L 06/22/17 03:45 Nucleated RBCs/100 WBC 0.2 /100 WBC (0) H 06/20/17 04:20 Large Platelets Present (Not Present) A 06/19/17 04:34 Polychromasia 1+ (Not Present) A 06/20/17 04:20 Hypochromasia Present (Not Present) A 06/20/17 04:20 Basophilic Stippling 1+ (Not Present) A 06/20/17 04:20 Anisocytosis 1+ (Not Present) A 06/20/17 04:20 Macrocytosis Present (Not Present) A 06/19/17 04:34 PT 12.9 Seconds (9.4-12.1) H 06/22/17 03:45 ABG pCO2 57 mmHg (35-45) H 06/22/17 04:36 ABG pO2 59 mmHg (85-104) L 06/22/17 04:36 ABG HCO3 35.3 mEQ/L (21-27) H 06/22/17 04:36 ABG Total CO2 37.0 mEq/L (20-26) H 06/22/17 04:36 ABG O2 Saturation 90 % (95-98) L 06/22/17 04:36 ABG Base Excess 8.6 mEq/L (-2.0 to 3.0) H 06/22/17 04:36 Carbon Dioxide 32 mEq/L (19-29) H 06/22/17 03:45 BUN 38 mg/dL (8-26) H 06/22/17 03:45 BUN/Creatinine Ratio 34 (6-26) H 06/22/17 03:45 Glucose 234 mg/dL (70-99) H 06/22/17 03:45 POC Glucose 214 (58-89) H 06/22/17 11:34 Hemoglobin A1c 6.5 % (-5.6) H 06/19/17 04:34 Calculated Osmolality 303 (280-300) H 06/22/17 03:45 Ionized Calcium 1.07 mmol/L (1.15-1.35) L 06/22/17 03:45 Albumin 3.1 g/dL (3.5-5.0) L 06/22/17 03:45 Globulin 4.3 g/dL (2.4-3.5) H 06/21/17 03:15 Albumin/Globulin Ratio 0.7 (1.1-2.2) L 06/21/17 03:15 Triglycerides 284 mg/dL (< 150) H 06/19/17 04:34 VLDL Cholesterol, Calc 57 mg/dL (< 31) H 06/19/17 04:34 HDL Cholesterol 25 mg/dL (40-59) L 06/19/17 04:34 Cholesterol/HDL Ratio 5.6 (0-4.9) H 06/19/17 04:34 Urine Glucose (UA) >=1000 mg/dL (Normal) H 06/18/17 16:05 Vancomycin Trough 26.7 mcg/mL (10-20) H* 06/21/17 22:20 Digoxin < 0.3 ng/mL (0.8-2.0) L 06/19/17 04:34 - Microbiology Findings Microbiology Findings: Microbiology, Last 48 Hours 06/18/17 23:20 Wound Culture - Final Right Leg Serratia marcescens Staphylococcus aureus Proteus mirabilis 06/22/17 05:15 Sputum Culture - Preliminary Sputum 06/20/17 08:21 Blood Culture - Preliminary Peripheral Venipuncture No growth. 06/20/17 08:11 Blood Culture - Preliminary Peripheral Venipuncture No growth. - Clinical Findings Intake & Output: Intake & Output 06/21/17 06/22/17 06/22/17 23:59 07:59 15:59 Intake Total 216.7 / 216.7 602.3 / 602.3 250 / 250 Output Total 2300 / 2300 600 / 600 Balance -2083.3 / -2083.3 2.3 / 2.3 250 / 250 Consult Discharge Plan - Plan Referrals: Sarah Mckeon MD [Primary Care Provider] - - Attending Attestation I examined this patient and my medical decision-making was reviewed with the Resident Physician. I agree with the documented findings, disposition and treatment plan as described except to the extent set forth below. Patient seen and examined at bedside Labs, radiology, chart personally reviewed. Management was reviewed during multidisciplinary critical care rounds. Neuropsych: Awake following commands continue to focus on sleep-wake cycle muslim and avoid RECEPTIONIST NURSE depressants as able Pulm: Acute hypoxic hypercarbic respiratory failure s/t EB, Benzo Use, and Cardiogenic Pulmonary Edema. Liberated from the ventilator today to positive airway pressure wean to nasal cannula is tolerated continue diuresis was cardiogenic pulmonary edema continue bronchodilators stop steroids for COPD. BiPAP at night for EB Cards: History of heart failure with preserved ejection fraction along with atrial fibrillation . Continue diuresis for heart failure with preserved ejection fraction blood pressure controlled atrial fibrillation rate controlled with beta shanta which we will titrate for effect FEN-GI: Advance diet after bedside swallow eval Renal: No evidence of acute kidney injury continue to monitor renal function daily replace electrolytes as needed while actively diuresing ID: Likely right lower extremity wound infection from chronic PVD. Vancomycin and Zosyn start ceftriaxone for polymicrobial infection Heme/Onc: DVT prophylaxis given Endo: Glucose monitored Integ/MSK: Has chronic lower extremity ulcers which are related to underlying peripheral vascular disease they may be acutely infected their being dressed appropriately and will continue skin care per routine ICU protocol to prevent pressure ulcers Lines: All lines examined without evidence of infection including: Right central venous catheter (plan to remove if PIVs can be established) urinary Hinton catheter CODE: Full code <Ramirez Rivers - Last Filed: 06/22/17 12:35> Date of Encounter: 06/22/17 Time of Encounter: 08:54 Assessment and Plan (1) Acute respiratory failure with hypoxia and hypercarbia Current Visit: Yes Status: Acute Patient has been extubated and seems to be tolerating it well. He is currently on BiPAP and sitting in bed. Patient states that he is doing well and feels better now that the tube is out. Chest x-ray showed some vascular congestion with possible pulmonary edema we will wean the patient from the BiPAP to nasal cannula as tolerated. We will continue diuresis patient with Lasix 40 mg IVP twice a day. Patient is no longer requiring any sedation at this time. (2) Non-pressure ulcer of right lower extremity Current Visit: Yes Status: Chronic Wound care has been consulted and patient has been switched to ceftriaxone. Cultures came back showing Serratia, staph aureus and Proteus mirabilis. Qualifiers: Non-pressure ulcer stage: with fat layer exposed Qualified Code(s): L97.912 - Non-pressure chronic ulcer of unspecified part of right lower leg with fat layer exposed (3) Diabetes Current Visit: Yes Status: Chronic Patient's blood sugar today was 217. We will continue high-dose sliding scale insulin every 4 hours and increase the basal insulin to 15 units of Levemir at night . Qualifiers: Diabetes mellitus type: type 2 Diabetes mellitus complication status: with skin complications Diabetes mellitus complication detail: with other skin ulcer Diabetes mellitus termite treater helper insulin use: without termite treater helper use Qualified Code(s): E11.622 - Type 2 diabetes mellitus with other skin ulcer (4) COPD (chronic obstructive pulmonary disease) Current Visit: Yes Status: Acute Patient is currently on Solu-Medrol 40 mg IV every 8 hours. Patient has a known history of COPD. Patient is currently on BiPAP but states that his breathing is good right now. Qualifiers: COPD type: COPD with acute exacerbation Qualified Code(s): J44.1 - Chronic obstructive pulmonary disease with (acute) exacerbation (5) EB (obstructive sleep apnea) Current Visit: Yes Status: Acute Patient was extubated this morning and currently on BiPAP. We will recommend that the patient remain on BiPAP while he sleeps at night for his obstructive sleep apnea. (6) Shock Current Visit: Yes Status: Acute Patient's blood pressures have normalized no longer requiring the use of pressors. We will continue to monitor the patient's blood pressure at this time it is currently stable in the 120s over 70s (7) Sepsis Current Visit: Yes Status: Acute Culture showed no growth. Zosyn and vancomycin been discontinued and the patient has been started on ceftriaxone. Patient does not have a fever and does not have a leukocytosis. Qualifiers: Sepsis type: sepsis due to unspecified organism Qualified Code(s): A41.9 - Sepsis, unspecified organism (8) Atrial fibrillation Current Visit: Yes Status: Acute Patient currently in atrial fibrillation with a rate in the low 100s. We have ordered Lopressor 50 mg PO twice a day for rate control. Qualifiers: Atrial fibrillation type: persistent Qualified Code(s): I48.1 - Persistent atrial fibrillation (9) Heart failure with preserved ejection fraction Current Visit: Yes Status: Acute Pulmonary edema have been seen on chest x-ray. We will continue to diurese the patient with Lasix 40 twice a day. (10) DVT prophylaxis Current Visit: Yes Status: Acute Patient is currently on heparin 5000 units subcutaneous every 8 hours for DVT prophylaxis Subjective Principal diagnosis: Afib slow ventricular response Interval history: States that he is doing well this morning and feeling like he would like to be extubated. Patient was excavated successfully and is currently on BiPAP in bed and seems to be tolerating it well. Patient denies being in any pain at this time. Objective PUL Vital signs: Last Vital Signs Temp 97.0 F L 06/22/17 07:35 Pulse 99 06/22/17 08:06 Resp 19 06/22/17 08:18 BP 143/71 06/22/17 08:06 Pulse Ox 92 06/22/17 08:18 General appearance: no acute distress Eyes: nonicteric ENT: oropharynx moist Neck: supple, no lymphadenopathy, no JVD Effort: normal Auscultation: bilateral: clear Cardiovascular: irregular rhythm (And tachycardic) Gastrointestinal: normoactive bowel sounds Integumentary: normal Extremities: no cyanosis, no edema, other (Patient has a left AKA) Musculoskeletal: other (Left AKA) normal mental status, non-focal exam mood appropriate, affect normal Ventilator Settings Ventilator Settings: Ventilator Settings, Last 8 Hours Ventilator Mode CPAP Ventilator Mode CPAP Ventilator Mode CPAP Ventilator Mode A/C Ventilator Mode A/C Ventilator Mode A/C Ventilator Mode A/C Ventilator Mode A/C Ventilator Mode A/C Ventilator Mode A/C Ventilator Mode A/C Ventilator Mode A/C Ventilator Mode A/C Ventilator Tidal Volume 450 Setting Ventilator Tidal Volume 450 Setting Ventilator Tidal Volume 450 Setting Ventilator Tidal Volume 450 Setting Ventilator Tidal Volume 450 Setting Ventilator Tidal Volume 450 Setting Ventilator Tidal Volume 450 Setting Ventilator Tidal Volume 450 Setting Ventilator Tidal Volume 450 Setting Ventilator Tidal Volume 450 Setting Ventilator Tidal Volume 450 Setting Ventilator Tidal Volume 450 Setting Ventilator Respiratory Rate 16 Setting Ventilator Respiratory Rate 16 Setting Ventilator Respiratory Rate 16 Setting Ventilator Respiratory Rate 16 Setting Ventilator Respiratory Rate 16 Setting Ventilator Respiratory Rate 16 Setting Ventilator Respiratory Rate 16 Setting Ventilator Respiratory Rate 16 Setting Ventilator Respiratory Rate 16 Setting Ventilator Respiratory Rate 16 Setting Actual Respiratory Rate 16 Actual Respiratory Rate 16 Actual Respiratory Rate 17 Actual Respiratory Rate 16 Actual Respiratory Rate 16 Actual Respiratory Rate 16 Actual Respiratory Rate 16 Actual Respiratory Rate 16 Actual Respiratory Rate 16 Actual Respiratory Rate 16 Actual Respiratory Rate 16 Actual Respiratory Rate 16 Positive End Expiratory 5 Pressure Positive End Expiratory 5 Pressure Positive End Expiratory 5 Pressure Positive End Expiratory 5 Pressure Positive End Expiratory 5 Pressure Positive End Expiratory 5 Pressure Positive End Expiratory 5 Pressure Positive End Expiratory 5 Pressure Positive End Expiratory 5 Pressure Positive End Expiratory 5 Pressure Positive End Expiratory 5 Pressure Positive End Expiratory 5 Pressure Positive End Expiratory 5 Pressure Peak Inspiratory Airway 11 Pressure Peak Inspiratory Airway 31 Pressure Peak Inspiratory Airway 11 Pressure Peak Inspiratory Airway 31 Pressure Peak Inspiratory Airway 31 Pressure Peak Inspiratory Airway 34 Pressure Peak Inspiratory Airway 38 Pressure Peak Inspiratory Airway 38 Pressure Peak Inspiratory Airway 38 Pressure Peak Inspiratory Airway 34 Pressure Peak Inspiratory Airway 31 Pressure Peak Inspiratory Airway 34 Pressure Results - Laboratory Findings CBC and BMP: 06/22/17 03:45 06/22/17 03:45 ABG ABG pH 7.40 pH Units (7.32-7.45) 06/22/17 04:36 ABG pCO2 57 mmHg (35-45) H 06/22/17 04:36 ABG pO2 59 mmHg (85-104) L 06/22/17 04:36 ABG O2 Saturation 90 % (95-98) L 06/22/17 04:36 PT/INR, D-dimer PT 12.9 Seconds (9.4-12.1) H 06/22/17 03:45 Abnormal lab findings: Abnormal lab results Hgb 12.3 g/dL (12.9-16.9) L 06/22/17 03:45 MCH 24.8 pg (28.0-33.3) L 06/22/17 03:45 MCHC 29.8 g/dL (31.6-35.5) L 06/22/17 03:45 RDW 17.4 % (11.5-14.5) H 06/22/17 03:45 MPV 9.0 fL (9.4-12.4) L 06/22/17 03:45 Lymphocytes # 0.3 K/mcL (0.6-4.6) L 06/22/17 03:45 Nucleated RBCs/100 WBC 0.2 /100 WBC (0) H 06/20/17 04:20 Large Platelets Present (Not Present) A 06/19/17 04:34 Polychromasia 1+ (Not Present) A 06/20/17 04:20 Hypochromasia Present (Not Present) A 06/20/17 04:20 Basophilic Stippling 1+ (Not Present) A 06/20/17 04:20 Anisocytosis 1+ (Not Present) A 06/20/17 04:20 Macrocytosis Present (Not Present) A 06/19/17 04:34 PT 12.9 Seconds (9.4-12.1) H 06/22/17 03:45 ABG pCO2 57 mmHg (35-45) H 06/22/17 04:36 ABG pO2 59 mmHg (85-104) L 06/22/17 04:36 ABG HCO3 35.3 mEQ/L (21-27) H 06/22/17 04:36 ABG Total CO2 37.0 mEq/L (20-26) H 06/22/17 04:36 ABG O2 Saturation 90 % (95-98) L 06/22/17 04:36 ABG Base Excess 8.6 mEq/L (-2.0 to 3.0) H 06/22/17 04:36 Carbon Dioxide 32 mEq/L (19-29) H 06/22/17 03:45 BUN 38 mg/dL (8-26) H 06/22/17 03:45 BUN/Creatinine Ratio 34 (6-26) H 06/22/17 03:45 Glucose 234 mg/dL (70-99) H 06/22/17 03:45 POC Glucose 217 (58-89) H 06/22/17 07:22 Hemoglobin A1c 6.5 % (-5.6) H 06/19/17 04:34 Calculated Osmolality 303 (280-300) H 06/22/17 03:45 Ionized Calcium 1.07 mmol/L (1.15-1.35) L 06/22/17 03:45 Albumin 3.1 g/dL (3.5-5.0) L 06/22/17 03:45 Globulin 4.3 g/dL (2.4-3.5) H 06/21/17 03:15 Albumin/Globulin Ratio 0.7 (1.1-2.2) L 06/21/17 03:15 Triglycerides 284 mg/dL (< 150) H 06/19/17 04:34 VLDL Cholesterol, Calc 57 mg/dL (< 31) H 06/19/17 04:34 HDL Cholesterol 25 mg/dL (40-59) L 06/19/17 04:34 Cholesterol/HDL Ratio 5.6 (0-4.9) H 06/19/17 04:34 Urine Glucose (UA) >=1000 mg/dL (Normal) H 06/18/17 16:05 Vancomycin Trough 26.7 mcg/mL (10-20) H* 06/21/17 22:20 Digoxin < 0.3 ng/mL (0.8-2.0) L 06/19/17 04:34 - Microbiology Findings Microbiology Findings: Microbiology, Last 48 Hours 06/22/17 05:15 Sputum Culture - Preliminary Sputum 06/20/17 08:21 Blood Culture - Preliminary Peripheral Venipuncture No growth. 06/20/17 08:11 Blood Culture - Preliminary Peripheral Venipuncture No growth. 06/18/17 23:20 Wound Culture - Preliminary Right Leg Serratia marcescens Staphylococcus aureus Proteus mirabilis - Clinical Findings Intake & Output: Intake & Output 06/21/17 06/22/17 06/22/17 23:59 07:59 15:59 Intake Total 216.7 / 216.7 602.3 / 602.3 250 / 250 Output Total 2300 / 2300 600 / 600 Balance -2083.3 / -2083.3 2.3 / 2.3 250 / 250
[2017-06-22] MEDS ORDERED: Insulin DETEMIR 100 UNIT/ML X5UNITS SQ SCH (11:35)
[2017-06-22] MEDS: Silvasorb 44.4 ML TUBE TP SCH (11:47)
--- NOTE | 2017-06-22 12:40 | Vascular/[facility] Progress Note ---
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 He has required a right common femoral artery bypass with saphenous vein. He now has a poorly healing right calf wound. He has no evidence of acute limb ischemia. His respiratory status appears to be improving. Continue with local wound care. The patient may follow-up in clinic after his discharge for further evaluation. (2) Tobacco abuse Current Visit: Yes Status: Acute (3) Diabetes Current Visit: Yes Status: Chronic Qualifiers: Diabetes mellitus type: type 2 Diabetes mellitus complication status: with skin complications Diabetes mellitus complication detail: with other skin ulcer Diabetes mellitus detention insulin use: without terminal system operator use Qualified Code(s): E11.622 - Type 2 diabetes mellitus with other skin ulcer (4) HLD (hyperlipidemia) Current Visit: Yes Status: Chronic Qualifiers: Hyperlipidemia type: pure hypercholesterolemia Qualified Code(s): E78.00 - Pure hypercholesterolemia, unspecified; E78.0 - Pure hypercholesterolemia (5) HTN (hypertension) Current Visit: Yes Status: Chronic Qualifiers: Hypertension type: essential hypertension Qualified Code(s): I10 - Essential (primary) hypertension - Subjective Interval history: The patient remains intubated. He is easily arousable and responds appropriately to questions. He denies any foot or leg pain. Vital Signs, Last 4 Hours Temp Pulse Resp BP Pulse Ox 06/22/17 12:30 102 16 127/75 92 06/22/17 11:56 97.1 F L 06/22/17 10:11 80 19 124/72 92 06/22/17 09:25 138/92 94 06/22/17 09:18 115 22 131/68 100 - Physical Examination General: Present: No Apparent Distress HEENT: Present: Pupils equal Neck: Absent: JVD Cardiac: Present: Reg Rate and Rhythm Lungs: Present: Normal Breath Sounds Neuro: Present: Alert and responsive, No focal deficits noted Vascular: Present: Normal capillary refill, Pulse, diminished Abdomen: Present: Soft Skin: Present: Wound/ulcer(s) (wound margins viable on right [place], no erythema or drainage) Results 06/22/17 03:45 06/22/17 03:45 Lab Results, Last 24 hours 06/22/17 06/22/17 06/22/17 03:45 03:45 03:45 WBC 7.0 Hgb 12.3 L Hct 41.3 Plt Count 223 INR 1.2 APTT 26.5 Sodium 138 Potassium 4.3 Chloride 99 Carbon Dioxide 32 H BUN 38 H Creatinine 1.13 Glucose 234 H Calcium 9.3 Magnesium 1.9 Consult Discharge Plan - Plan Referrals: Sarah Mckeon MD [Primary Care Provider] -
[2017-06-22] MEDS ORDERED: Aminoglycoside Consult 1 EACH MC ONE (13:25)
[2017-06-23] MEDS: Insulin LISPRO 300 UNITS/3 ML VIAL SQ SCH ×3 (00:52→08:11)
[2017-06-23] MEDS: Lacri-Lube 3.5 GM TUBE BOTH EYES SCH ×5 (03:24→20:41)
[2017-06-23 04:58] LABS: Basophils % 0.1 %; Hematocrit 43.5 % (37.5-50.1); Hemoglobin 13.1 g/dL (12.9-16.9); Immature Granulocytes % 0.4 % (0-4); Lymphocytes # 0.9 K/mcL (0.6-4.6); Lymphocytes % 8.6 %; Mean Corpuscular HGB Conc 30.1 g/dL (31.6-35.5); Mean Corpuscular Hemoglobin 24.6 pg (28.0-33.3); Mean Corpuscular Volume 81.8 fL (83.0-100.0); Mean Platelet Volume 8.9 fL (9.4-12.4); Monocytes # 1.1 K/mcL (0.0-1.3); Monocytes % 10.4 %; Neutrophils # 8.1 K/mcL (1.6-8.9); Platelet Count 251 K/mcL (140-400); Red Blood Count 5.32 M/mcL (4.19-5.50); Red Cell Distribution Width 17.9 % (11.5-14.5); Segmented Neutrophils % 80.5 %
[2017-06-23 05:04] LABS: INR 1.2; Prothrombin Time 12.6 Seconds (9.4-12.1)
[2017-06-23 05:06] LABS: Activated Partial Thrombo Time 25.4 Seconds (26.0-36.0); Ionized Calcium 1.15 mmol/L (1.15-1.35)
[2017-06-23 05:12] LABS: Albumin 3.1 g/dL (3.5-5.0); BUN/Creatinine Ratio 35 (6-26); Blood Urea Nitrogen 41 mg/dL (8-26); Calcium 9.4 mg/dL (8.6-10.8); Carbon Dioxide 38 mEq/L (19-29); Chloride 95 mEq/L (98-109); Glucose 102 mg/dL (70-99); Magnesium 1.6 mg/dL (1.6-2.6); Osmolality,Calculated 300 (280-300); Phosphorous 2.9 mg/dL (2.3-4.7); Potassium 3.5 mEq/L (3.5-4.5); Sodium 140 mEq/L (136-145); eGFR For African Americans > 60 (> 60); eGFR For Non-African Americans > 60 (> 60)
[2017-06-23] MEDS: *HR* Heparin 5,000 UNIT/ML VIAL SQ SCH ×3 (06:08→20:45)
--- NOTE | 2017-06-23 07:47 | Pulmonology Progress Note ---
<Sumanth Hancock W - Last Filed: 06/23/17 10:26> Date of Encounter: 06/23/17 Assessment and Plan (1) Acute respiratory failure with hypoxia and hypercarbia Current Visit: Yes Status: Acute (2) COPD (chronic obstructive pulmonary disease) Current Visit: Yes Status: Acute Qualifiers: COPD type: COPD with acute exacerbation Qualified Code(s): J44.1 - Chronic obstructive pulmonary disease with (acute) exacerbation (3) EB (obstructive sleep apnea) Current Visit: Yes Status: Acute (4) Shock Current Visit: Yes Status: Acute (5) Syncope Current Visit: Yes Status: Acute Qualifiers: Syncope type: unspecified Qualified Code(s): R55 - Syncope and collapse (6) Non-pressure ulcer of right lower extremity Current Visit: Yes Status: Chronic Qualifiers: Non-pressure ulcer stage: with fat layer exposed Qualified Code(s): L97.912 - Non-pressure chronic ulcer of unspecified part of right lower leg with fat layer exposed (7) Diabetes Current Visit: Yes Status: Chronic Qualifiers: Diabetes mellitus type: type 2 Diabetes mellitus complication status: with skin complications Diabetes mellitus complication detail: with other skin ulcer Diabetes mellitus fci insulin use: without ocean transportation intermediary use Qualified Code(s): E11.622 - Type 2 diabetes mellitus with other skin ulcer (8) Afib Current Visit: Yes Status: Chronic Qualifiers: Atrial fibrillation type: persistent Qualified Code(s): I48.1 - Persistent atrial fibrillation (9) DVT prophylaxis Current Visit: Yes Status: Acute (10) Sepsis Current Visit: Yes Status: Acute Qualifiers: Sepsis type: sepsis due to unspecified organism Qualified Code(s): A41.9 - Sepsis, unspecified organism (11) Atrial fibrillation Current Visit: Yes Status: Acute Qualifiers: Atrial fibrillation type: persistent Qualified Code(s): I48.1 - Persistent atrial fibrillation (12) Heart failure with preserved ejection fraction Current Visit: Yes Status: Acute Objective PUL Vital signs: Last Vital Signs Temp 98.5 F 06/23/17 08:14 Pulse 114 06/23/17 08:00 Resp 20 06/23/17 08:00 BP 114/88 06/23/17 08:00 Pulse Ox 93 06/23/17 08:00 Results - Laboratory Findings CBC and BMP: 06/23/17 04:40 06/23/17 04:40 ABG ABG pH 7.40 pH Units (7.32-7.45) 06/22/17 04:36 ABG pCO2 57 mmHg (35-45) H 06/22/17 04:36 ABG pO2 59 mmHg (85-104) L 06/22/17 04:36 ABG O2 Saturation 90 % (95-98) L 06/22/17 04:36 PT/INR, D-dimer PT 12.6 Seconds (9.4-12.1) H 06/23/17 04:40 Abnormal lab findings: Abnormal lab results MCV 81.8 fL (83.0-100.0) L 06/23/17 04:40 MCH 24.6 pg (28.0-33.3) L 06/23/17 04:40 MCHC 30.1 g/dL (31.6-35.5) L 06/23/17 04:40 RDW 17.9 % (11.5-14.5) H 06/23/17 04:40 MPV 8.9 fL (9.4-12.4) L 06/23/17 04:40 Nucleated RBCs/100 WBC 0.2 /100 WBC (0) H 06/20/17 04:20 Large Platelets Present (Not Present) A 06/19/17 04:34 Polychromasia 1+ (Not Present) A 06/20/17 04:20 Hypochromasia Present (Not Present) A 06/20/17 04:20 Basophilic Stippling 1+ (Not Present) A 06/20/17 04:20 Anisocytosis 1+ (Not Present) A 06/20/17 04:20 Macrocytosis Present (Not Present) A 06/19/17 04:34 PT 12.6 Seconds (9.4-12.1) H 06/23/17 04:40 APTT 25.4 Seconds (26.0-36.0) L 06/23/17 04:40 ABG pCO2 57 mmHg (35-45) H 06/22/17 04:36 ABG pO2 59 mmHg (85-104) L 06/22/17 04:36 ABG HCO3 35.3 mEQ/L (21-27) H 06/22/17 04:36 ABG Total CO2 37.0 mEq/L (20-26) H 06/22/17 04:36 ABG O2 Saturation 90 % (95-98) L 06/22/17 04:36 ABG Base Excess 8.6 mEq/L (-2.0 to 3.0) H 06/22/17 04:36 Chloride 95 mEq/L (98-109) L 06/23/17 04:40 Carbon Dioxide 38 mEq/L (19-29) H 06/23/17 04:40 BUN 41 mg/dL (8-26) H 06/23/17 04:40 BUN/Creatinine Ratio 35 (6-26) H 06/23/17 04:40 Glucose 102 mg/dL (70-99) H 06/23/17 04:40 POC Glucose 141 (58-89) H 06/23/17 07:42 Hemoglobin A1c 6.5 % (-5.6) H 06/19/17 04:34 Albumin 3.1 g/dL (3.5-5.0) L 06/23/17 04:40 Globulin 4.3 g/dL (2.4-3.5) H 06/21/17 03:15 Albumin/Globulin Ratio 0.7 (1.1-2.2) L 06/21/17 03:15 Triglycerides 284 mg/dL (< 150) H 06/19/17 04:34 VLDL Cholesterol, Calc 57 mg/dL (< 31) H 06/19/17 04:34 HDL Cholesterol 25 mg/dL (40-59) L 06/19/17 04:34 Cholesterol/HDL Ratio 5.6 (0-4.9) H 06/19/17 04:34 Urine Glucose (UA) >=1000 mg/dL (Normal) H 06/18/17 16:05 Vancomycin Trough 26.7 mcg/mL (10-20) H* 06/21/17 22:20 Digoxin < 0.3 ng/mL (0.8-2.0) L 06/19/17 04:34 - Microbiology Findings Microbiology Findings: Microbiology, Last 48 Hours 06/22/17 05:15 Urine Culture - Final Urine,Catheterized No growth. 06/22/17 05:15 Sputum Culture - Preliminary Sputum 06/18/17 23:20 Wound Culture - Final Right Leg Serratia marcescens Staphylococcus aureus Proteus mirabilis 06/20/17 08:21 Blood Culture - Preliminary Peripheral Venipuncture No growth. 06/20/17 08:11 Blood Culture - Preliminary Peripheral Venipuncture No growth. - Clinical Findings Intake & Output: Intake & Output 06/22/17 06/23/17 06/23/17 23:59 07:59 15:59 Intake Total 980 / 980 240 / 240 Output Total 2225 / 2225 200 / 200 300 / 300 Balance -1245 / -1245 -200 / -200 -60 / -60 Weight 127.1 kg Consult Discharge Plan - Plan Referrals: Sarah Mckeon MD [Primary Care Provider] - - Attending Attestation I examined this patient and my medical decision-making was reviewed with the Resident Physician. I agree with the documented findings, disposition and treatment plan as described except to the extent set forth below. Patient seen and examined at bedside Labs, radiology, chart personally reviewed. Management was reviewed during multidisciplinary critical care rounds. 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 Acceptable SaO2% on NC cont bronchodilators stop steroids for COPD. BiPAP at night for EB Cards: History of heart failure with preserved ejection fraction along with atrial fibrillation . Continue diuresis for heart failure with preserved ejection fraction blood pressure controlled atrial fibrillation with RVR increase dose of with beta shanta Cardiology Following FEN-GI: Cont Cardiac Diet Renal: No evidence of acute kidney injury continue to monitor renal function daily replace electrolytes as needed while actively diuresing ID: Likely right lower extremity wound infection from chronic PVD Cont ceftriaxone for polymicrobial infection Heme/Onc: DVT prophylaxis given Endo: Glucose monitored Integ/MSK: Has chronic lower extremity ulcers which are related to underlying peripheral vascular disease they may be acutely infected their being dressed appropriately and will continue skin care per routine ICU protocol to prevent pressure ulcers Lines: All lines examined without evidence of infection including: Right central venous catheter (plan to remove if PIVs can be established) urinary Hinton catheter CODE: Full code Stable for Transfer to [facility] for ongoing Care. Case was D/w Dr Pozo the admitting Hospitalist. <Ramirez Rivers - Last Filed: 06/23/17 10:40> Date of Encounter: 06/23/17 Time of Encounter: 07:44 Assessment and Plan (1) Acute respiratory failure with hypoxia and hypercarbia Current Visit: Yes Status: Acute Patient was extubated yesterday and is currently on nasal cannula. Patient seems to be tolerating this well and maintaining his oxygen saturations at this time. Chest x-ray showed some vascular congestion with possible pulmonary edema. We will continue diuresis patient with Lasix 40 mg IVP twice a day. Patient is stable and doing well he can be transferred to floor in a tele bed. I have spoken with the hospitalist Dr. Cardona and put in transfer orders for the patient. (2) Non-pressure ulcer of right lower extremity Current Visit: Yes Status: Chronic Wound care has been consulted and patient has been switched to ceftriaxone. Cultures came back showing Serratia, staph aureus and Proteus mirabilis. Qualifiers: Non-pressure ulcer stage: with fat layer exposed Qualified Code(s): L97.912 - Non-pressure chronic ulcer of unspecified part of right lower leg with fat layer exposed (3) Diabetes Current Visit: Yes Status: Chronic Patient's blood sugar today was 102. Patient has been switched to a ACHS insulin regimen. Patient has a cardiac/diabetic diet ordered Qualifiers: Diabetes mellitus type: type 2 Diabetes mellitus complication status: with skin complications Diabetes mellitus complication detail: with other skin ulcer Diabetes mellitus fci insulin use: without ocean transportation intermediary use Qualified Code(s): E11.622 - Type 2 diabetes mellitus with other skin ulcer (4) COPD (chronic obstructive pulmonary disease) Current Visit: Yes Status: Acute Patient is currently on Solu-Medrol 40 mg IV every 8 hours. Patient has a known history of COPD. He is currently on nasal cannula states that his breathing is doing well today. Qualifiers: COPD type: COPD with acute exacerbation Qualified Code(s): J44.1 - Chronic obstructive pulmonary disease with (acute) exacerbation (5) EB (obstructive sleep apnea) Current Visit: Yes Status: Acute Patient was extubated yesterday morning and is currently on nasal cannula. We will recommend that the patient remain on BiPAP while he sleeps at night for his obstructive sleep apnea. (6) Shock Current Visit: Yes Status: Acute Patient's blood pressures have normalized no longer requiring the use of pressors. We will continue to monitor the patient's blood pressure at this time it is currently stable in the 130s over 70s (7) Sepsis Current Visit: Yes Status: Acute Culture showed no growth. Zosyn and vancomycin been discontinued and the patient has been started on ceftriaxone. Patient does not have a fever and does not have a leukocytosis. Qualifiers: Sepsis type: sepsis due to unspecified organism Qualified Code(s): A41.9 - Sepsis, unspecified organism (8) Atrial fibrillation Current Visit: Yes Status: Acute Patient currently in atrial fibrillation with a rate in the low 100s. We have increased his Lopressor to 100 mg PO twice a day for rate control. Qualifiers: Atrial fibrillation type: persistent Qualified Code(s): I48.1 - Persistent atrial fibrillation (9) Heart failure with preserved ejection fraction Current Visit: Yes Status: Acute Pulmonary edema has been seen on chest x-ray. We will continue to diurese the patient with Lasix 40 twice a day. (10) DVT prophylaxis Current Visit: Yes Status: Acute Patient is currently on heparin 5000 units subcutaneous every 8 hours for DVT prophylaxis Subjective Principal diagnosis: Afib slow ventricular response Interval history: Patient states that he is doing well this morning is no pain. States that he had a good night. He did not report any issues throughout the night he states that his breathing is doing well. Objective PUL Vital signs: Last Vital Signs Temp 98.4 F 06/23/17 03:00 Pulse 95 06/23/17 06:00 Resp 27 06/23/17 06:00 BP 137/79 06/23/17 06:00 Pulse Ox 89 06/23/17 06:00 General appearance: no acute distress Eyes: nonicteric ENT: oropharynx moist Neck: supple, no lymphadenopathy, no JVD Effort: normal Auscultation: bilateral: rales Cardiovascular: irregular rhythm (And tachycardic) Gastrointestinal: normoactive bowel sounds Integumentary: other (Patient has wound on right lower extremity.) Extremities: no cyanosis, no edema, other (Patient has a left AKA, wound on right lower extremity) Musculoskeletal: other (Left AKA) normal mental status, non-focal exam mood appropriate, affect normal Results - Laboratory Findings CBC and BMP: 06/23/17 04:40 06/23/17 04:40 ABG ABG pH 7.40 pH Units (7.32-7.45) 06/22/17 04:36 ABG pCO2 57 mmHg (35-45) H 06/22/17 04:36 ABG pO2 59 mmHg (85-104) L 06/22/17 04:36 ABG O2 Saturation 90 % (95-98) L 06/22/17 04:36 PT/INR, D-dimer PT 12.6 Seconds (9.4-12.1) H 06/23/17 04:40 Abnormal lab findings: Abnormal lab results MCV 81.8 fL (83.0-100.0) L 06/23/17 04:40 MCH 24.6 pg (28.0-33.3) L 06/23/17 04:40 MCHC 30.1 g/dL (31.6-35.5) L 06/23/17 04:40 RDW 17.9 % (11.5-14.5) H 06/23/17 04:40 MPV 8.9 fL (9.4-12.4) L 06/23/17 04:40 Nucleated RBCs/100 WBC 0.2 /100 WBC (0) H 06/20/17 04:20 Large Platelets Present (Not Present) A 06/19/17 04:34 Polychromasia 1+ (Not Present) A 06/20/17 04:20 Hypochromasia Present (Not Present) A 06/20/17 04:20 Basophilic Stippling 1+ (Not Present) A 06/20/17 04:20 Anisocytosis 1+ (Not Present) A 06/20/17 04:20 Macrocytosis Present (Not Present) A 06/19/17 04:34 PT 12.6 Seconds (9.4-12.1) H 06/23/17 04:40 APTT 25.4 Seconds (26.0-36.0) L 06/23/17 04:40 ABG pCO2 57 mmHg (35-45) H 06/22/17 04:36 ABG pO2 59 mmHg (85-104) L 06/22/17 04:36 ABG HCO3 35.3 mEQ/L (21-27) H 06/22/17 04:36 ABG Total CO2 37.0 mEq/L (20-26) H 06/22/17 04:36 ABG O2 Saturation 90 % (95-98) L 06/22/17 04:36 ABG Base Excess 8.6 mEq/L (-2.0 to 3.0) H 06/22/17 04:36 Chloride 95 mEq/L (98-109) L 06/23/17 04:40 Carbon Dioxide 38 mEq/L (19-29) H 06/23/17 04:40 BUN 41 mg/dL (8-26) H 06/23/17 04:40 BUN/Creatinine Ratio 35 (6-26) H 06/23/17 04:40 Glucose 102 mg/dL (70-99) H 06/23/17 04:40 POC Glucose 100 (58-89) H 06/23/17 03:14 Hemoglobin A1c 6.5 % (-5.6) H 06/19/17 04:34 Albumin 3.1 g/dL (3.5-5.0) L 06/23/17 04:40 Globulin 4.3 g/dL (2.4-3.5) H 06/21/17 03:15 Albumin/Globulin Ratio 0.7 (1.1-2.2) L 06/21/17 03:15 Triglycerides 284 mg/dL (< 150) H 06/19/17 04:34 VLDL Cholesterol, Calc 57 mg/dL (< 31) H 06/19/17 04:34 HDL Cholesterol 25 mg/dL (40-59) L 06/19/17 04:34 Cholesterol/HDL Ratio 5.6 (0-4.9) H 06/19/17 04:34 Urine Glucose (UA) >=1000 mg/dL (Normal) H 06/18/17 16:05 Vancomycin Trough 26.7 mcg/mL (10-20) H* 06/21/17 22:20 Digoxin < 0.3 ng/mL (0.8-2.0) L 06/19/17 04:34 - Microbiology Findings Microbiology Findings: Microbiology, Last 48 Hours 06/22/17 05:15 Urine Culture - Final Urine,Catheterized No growth. 06/22/17 05:15 Sputum Culture - Preliminary Sputum 06/18/17 23:20 Wound Culture - Final Right Leg Serratia marcescens Staphylococcus aureus Proteus mirabilis 06/20/17 08:21 Blood Culture - Preliminary Peripheral Venipuncture No growth. 06/20/17 08:11 Blood Culture - Preliminary Peripheral Venipuncture No growth. - Clinical Findings Intake & Output: Intake & Output 08/10/2706/22/17 06/23/17 15:59 23:59 07:59 Intake Total 250 / 250 980 / 980 Output Total 1350 / 1350 2225 / 2225 200 / 200 Balance -1100 / -1100 -1245 / -1245 -200 / -200 Weight 127.1 kg
[2017-06-23] MEDS: FentaNYL (PF) 1,000 MCG in 0.9 % Sodium Chloride 80 ML IVC SCH (08:09)
[2017-06-23] MEDS: Norepinephrine 4 MG in D5% in Water 250 ML IVC SCH (08:10)
[2017-06-23] MEDS: Furosemide 40 MG/4 ML VIAL IVP SCH ×2 (08:10→17:17)
[2017-06-23] MEDS: Pantoprazole 40 MG VIAL IVP SCH ×2 (08:11→20:45)
[2017-06-23] MEDS: Chlorhexidine Rinse 15 ML MOUTHWASH MM SCH ×2 (08:11→20:42)
[2017-06-23] MEDS: Silvasorb 44.4 ML TUBE TP SCH (08:12)
[2017-06-23] MEDS ORDERED: Naloxone 0.4 MG/ML INJ IVP PRN (09:37)
[2017-06-23] MEDS ORDERED: *HR* FentaNYL (PF) 100 MCG/2 ML VIAL IVP PRN (09:37)
[2017-06-23] MEDS ORDERED: Dextrose Gel 15 GM PO PRN ×2 (09:37)
[2017-06-23] MEDS ORDERED: *HR* Metoprolol 5 MG/5 ML VIAL IVP PRN (09:37)
[2017-06-23] MEDS ORDERED: Lacri-Lube 3.5 GM TUBE BOTH EYES PRN (09:37)
[2017-06-23] MEDS ORDERED: D5% in Water 1,000 ML IVC PRN (09:37)
[2017-06-23] MEDS ORDERED: Ondansetron 4 MG/2 ML VIAL IVP PRN (09:37)
[2017-06-23] MEDS ORDERED: *HR* Dextrose 50 % in Water (Syg) 50 ML SYRINGE IVP PRN (09:37)
[2017-06-23] MEDS ORDERED: Insulin LISPRO 300 UNITS/3 ML VIAL SQ SCH (11:30)
[2017-06-23] MEDS: Insulin DETEMIR 100 UNIT/ML X5UNITS SQ SCH (20:50)
[2017-06-24] MEDS: Lacri-Lube 3.5 GM TUBE BOTH EYES SCH ×2 (03:55→08:33)
[2017-06-24] MEDS: *HR* Heparin 5,000 UNIT/ML VIAL SQ SCH ×3 (05:31→22:00)
[2017-06-24 05:33] LABS: INR 1.2; Prothrombin Time 12.7 Seconds (9.4-12.1)
[2017-06-24 05:34] LABS: BUN/Creatinine Ratio 32 (6-26); Blood Urea Nitrogen 35 mg/dL (8-26); Calcium 9.6 mg/dL (8.6-10.8); Carbon Dioxide 36 mEq/L (19-29); Chloride 91 mEq/L (98-109); Glucose 172 mg/dL (70-99); Magnesium 1.6 mg/dL (1.6-2.6); Osmolality,Calculated 294 (280-300); Phosphorous 3.2 mg/dL (2.3-4.7); Potassium 3.2 mEq/L (3.5-4.5); Sodium 136 mEq/L (136-145); eGFR For African Americans > 60 (> 60); eGFR For Non-African Americans > 60 (> 60)
[2017-06-24 05:36] LABS: Activated Partial Thrombo Time 21.3 Seconds (26.0-36.0)
[2017-06-24 05:43] LABS: Ionized Calcium 1.15 mmol/L (1.15-1.35)
[2017-06-24 06:45] LABS: Basophils % 0.1 %; Eosinophils % 0.3 %; Hematocrit 43.9 % (37.5-50.1); Hemoglobin 13.2 g/dL (12.9-16.9); Immature Granulocytes % 0.5 % (0-4); Lymphocytes # 0.8 K/mcL (0.6-4.6); Lymphocytes % 11.2 %; Mean Corpuscular HGB Conc 30.1 g/dL (31.6-35.5); Mean Corpuscular Hemoglobin 24.5 pg (28.0-33.3); Mean Corpuscular Volume 81.6 fL (83.0-100.0); Mean Platelet Volume 9.5 fL (9.4-12.4); Monocytes # 0.7 K/mcL (0.0-1.3); Monocytes % 9.9 %; Neutrophils # 5.8 K/mcL (1.6-8.9); Platelet Count 246 K/mcL (140-400); Red Blood Count 5.38 M/mcL (4.19-5.50); Red Cell Distribution Width 18.4 % (11.5-14.5)
[2017-06-24] MEDS: Ipratropium/Albuterol Neb 3 ML IH SCH ×6 (07:27→23:49)
[2017-06-24] MEDS: Furosemide 40 MG/4 ML VIAL IVP SCH ×2 (08:33→15:49)
[2017-06-24] MEDS: Chlorhexidine Rinse 15 ML MOUTHWASH MM SCH (08:33)
[2017-06-24] MEDS: Pantoprazole 40 MG VIAL IVP SCH (08:34)
[2017-06-24] MEDS: Silvasorb 44.4 ML TUBE TP SCH (08:46)
--- NOTE | 2017-06-24 11:56 | Internal Med Progress Note ---
Date of Encounter: 06/24/17 Time of Encounter: 11:56 - Assessment and plan (1) Acute respiratory failure with hypoxia and hypercarbia Current Visit: Yes Status: Acute Assessment and plan: Still hypoxic on O2 O2 qualification Continue supplementation Continue BiPAP at night Patient will need biPAP and O2 qualificatio prior to discharge due to syncope suspected to be from severe OHS/EB/COPD (2) Non-pressure ulcer of right lower extremity Current Visit: Yes Status: Chronic Assessment and plan: acute on chronic. Vascular surgery was following Continue wound care Multiple organisms infection Continue ceftriaxone Qualifiers: Non-pressure ulcer stage: with fat layer exposed Qualified Code(s): L97.912 - Non-pressure chronic ulcer of unspecified part of right lower leg with fat layer exposed (3) Diabetes Current Visit: Yes Status: Chronic Assessment and plan: appears controlled with an A1C of 6.5%. continue basal and prandial insulin Qualifiers: Diabetes mellitus type: type 2 Diabetes mellitus complication status: with skin complications Diabetes mellitus complication detail: with other skin ulcer Diabetes mellitus terminologist insulin use: without jail use Qualified Code(s): E11.622 - Type 2 diabetes mellitus with other skin ulcer (4) Afib Current Visit: Yes Status: Chronic Assessment and plan: HR in the 90s Resume digoxin Resume Xarelto Continue telemetry Qualifiers: Atrial fibrillation type: persistent Qualified Code(s): I48.1 - Persistent atrial fibrillation (5) HTN (hypertension) Current Visit: Yes Status: Chronic Assessment and plan: Controlled. Medications were held due to shock BP is acceptable for now Continue to hold Amlodipine and Lisinipril-HCTZ Resume prn Qualifiers: Hypertension type: essential hypertension Qualified Code(s): I10 - Essential (primary) hypertension (6) HLD (hyperlipidemia) Current Visit: Yes Status: Chronic Assessment and plan: Continue home meds Qualifiers: Hyperlipidemia type: pure hypercholesterolemia Qualified Code(s): E78.00 - Pure hypercholesterolemia, unspecified; E78.0 - Pure hypercholesterolemia (7) Anxiety and depression Current Visit: Yes Status: Chronic Assessment and plan: Mood and affect stable during my interaction with him. (8) Tobacco abuse counseling Current Visit: Yes Status: Chronic Assessment and plan: Continues to smoke 1.5 packs per day, nicotine patch. Declines counseling at this time (9) Rheumatoid arthritis Current Visit: Yes Status: Chronic Assessment and plan: Chronic. Resume azathioprine. denies pain at this time. Qualifiers: Rheumatoid arthritis location: unspecified site Rheumatoid factor presence : unspecified presence Qualified Code(s): M06.9 - Rheumatoid arthritis, unspecified (10) Shock Current Visit: Yes Status: Resolved (11) Sepsis Current Visit: Yes Status: Resolved Qualifiers: Sepsis type: sepsis due to unspecified organism Qualified Code(s): A41.9 - Sepsis, unspecified organism (12) Heart failure with preserved ejection fraction Current Visit: Yes Status: Acute Assessment and plan: Continue lasix IV BID Transition to po tmrw a.m Clinically euvolemic - Subjective Interval history: Seen and evaluated at bedside 62 M, active tobacco use, transferred from the ICU following management of acute hypoxic and hypercapneic respiratory failure secondary to COPDE, CHFpEF exacerbation, EB, Sepsis with shock from RLE wound infection, He also has a PMH of HTN, Afib, DM, PVD with chronic RLE ulcer s/p bypass He has no new complains Sepsis and shock has resolved He is still requiring O2 4L per minute - Constitutional Vitals: Temp Pulse Resp BP Pulse Ox 98.2 F 99 18 131/79 92 06/24/17 11:02 06/24/17 11:02 06/24/17 11:26 06/24/17 11:02 06/24/17 11:26 General appearance: Present: cooperative, A&O X 3, morbidly obese, pleasant, answers questions appropriately - Head Head exam: Present: atraumatic, normocephalic - Eye Eye exam: Present: PERRL, conjuntiva pink, sclera anicteric Pupils: Present: PERRL - Neck Neck exam general surgery: Present: supple, trachea midline. Absent: lymphadenopathy - Respiratory Respiratory exam: Present: CTAB. Absent: accessory muscle use, rales, rhonchi, wheezes - Cardiovascular Cardiovascular exam: Present: RRR, +S1, +S2. Absent: diastolic murmur, gallop, rubs, systolic murmur - GI/Abdominal GI/Abdominal exam: Present: normal bowel sounds, soft, no peritoneal signs. Absent: distended, tenderness - Extremities Exam Additional comments: s/p L AKA, Right leg with clean wound dressing - Neurological Exam Neurological exam: Present: alert, CN II-XII intact, oriented X3, no focal deficits. Absent: pronater drift, facial droop, speech deficit - Skin Skin exam: Present: dry, intact Internal Medicine: Result - Labs CBC & Chem 7: 06/24/17 04:42 06/24/17 04:42 Labs: Short CBC 06/24/17 Range/Units 04:42 WBC 7.5 (4.3-11.1) K/mcL Hgb 13.2 (12.9-16.9) g/dL Hct 43.9 (37.5-50.1) % Plt Count 246 (140-400) K/mcL Neutrophils # 5.8 (1.6-8.9) K/mcL BMP 06/24/17 04:42 Sodium 136 Potassium 3.2 L Chloride 91 L Carbon Dioxide 36 H BUN 35 H Creatinine 1.09 Glucose 172 H Calcium 9.6 - ABG Interpretation ABG results: ABG ABG pH 7.40 pH Units (7.32-7.45) 06/22/17 04:36 ABG pCO2 57 mmHg (35-45) H 06/22/17 04:36 ABG pO2 59 mmHg (85-104) L 06/22/17 04:36 ABG O2 Saturation 90 % (95-98) L 06/22/17 04:36 PT/INR, D-dimer PT 12.7 Seconds (9.4-12.1) H 06/24/17 04:42 Consult Discharge Plan - Plan Referrals: Sarah Mckeon MD [Primary Care Provider] -
[2017-06-24] MEDS ORDERED: *HR* Etomidate 20 MG/10 ML AMPUL IVP ONE (14:20)
[2017-06-24] MEDS ORDERED: *HR* Midazolam HCl 5 MG/5 ML VIAL IVP ONE (14:20)
[2017-06-24] MEDS: Gabapentin 300 MG CAPSULE PO SCH ×2 (15:49→21:59)
[2017-06-24] MEDS: Insulin LISPRO 300 UNITS/3 ML VIAL SQ SCH ×2 (15:49→21:59)
[2017-06-24] MEDS: *HR* Digoxin 0.125 MG TABLET PO SCH (15:49)
[2017-06-24] MEDS: Insulin DETEMIR 100 UNIT/ML X5UNITS SQ SCH (22:00)
[2017-06-25] MEDS: Ipratropium/Albuterol Neb 3 ML IH SCH ×6 (04:32→23:50)
[2017-06-25] MEDS: *HR* Heparin 5,000 UNIT/ML VIAL SQ SCH (06:38)
[2017-06-25] MEDS: *HR* Rivaroxaban 10 MG TABLET PO SCH (08:16)
[2017-06-25] MEDS: Furosemide 40 MG/4 ML VIAL IVP SCH (08:16)
[2017-06-25] MEDS: Gabapentin 300 MG CAPSULE PO SCH ×3 (08:16→20:38)
[2017-06-25] MEDS: *HR* Digoxin 0.125 MG TABLET PO SCH (08:16)
[2017-06-25] MEDS: Insulin LISPRO 300 UNITS/3 ML VIAL SQ SCH ×4 (08:17→20:39)
[2017-06-25] MEDS: Silvasorb 44.4 ML TUBE TP SCH (08:18)
--- NOTE | 2017-06-25 17:14 | Internal Med Progress Note ---
Date of Encounter: 06/25/17 Time of Encounter: 17:12 - Assessment and plan (1) Acute respiratory failure with hypoxia and hypercarbia Current Visit: Yes Status: Acute Assessment and plan: Still hypoxic on O2 O2 qualification Continue supplementation Continue BiPAP at night Patient will need biPAP and O2 qualificatio prior to discharge due to syncope suspected to be from severe OHS/EB/COPD 06/25/2017. Oxygenation improved. We will work on the oxygen qualification. BiPAP at night. (2) Non-pressure ulcer of right lower extremity Current Visit: Yes Status: Chronic Assessment and plan: acute on chronic. Vascular surgery was following Continue wound care Multiple organisms infection Continue ceftriaxone Qualifiers: Non-pressure ulcer stage: with fat layer exposed Qualified Code(s): L97.912 - Non-pressure chronic ulcer of unspecified part of right lower leg with fat layer exposed (3) Afib Current Visit: Yes Status: Chronic Assessment and plan: HR in the 90s Resume digoxin Resume Xarelto Continue telemetry Qualifiers: Atrial fibrillation type: persistent Qualified Code(s): I48.1 - Persistent atrial fibrillation (4) HTN (hypertension) Current Visit: Yes Status: Chronic Assessment and plan: Controlled. Medications were held due to shock BP is acceptable for now Continue to hold Amlodipine and Lisinipril-HCTZ Resume prn Qualifiers: Hypertension type: essential hypertension Qualified Code(s): I10 - Essential (primary) hypertension (5) Diabetes Current Visit: Yes Status: Chronic Assessment and plan: appears controlled with an A1C of 6.5%. continue basal and prandial insulin Qualifiers: Diabetes mellitus type: type 2 Diabetes mellitus complication status: with skin complications Diabetes mellitus complication detail: with other skin ulcer Diabetes mellitus exterminator helper termite insulin use: without mcc use Qualified Code(s): E11.622 - Type 2 diabetes mellitus with other skin ulcer - Subjective Interval history: Seen and examined. Chart reviewed. patient is comfortably sitting in a chair. Patient denies chest pain, shortness of breath, nausea, vomiting and diarrhea. - Constitutional Vitals: Temp Pulse Resp BP Pulse Ox 98.1 F 76 16 142/89 96 06/25/17 11:26 06/25/17 11:26 06/25/17 16:09 06/25/17 11:26 06/25/17 16:09 General appearance: Present: cooperative, A&O X 3, morbidly obese, pleasant, answers questions appropriately - Head Head exam: Present: atraumatic, normocephalic - Eye Eye exam: Present: PERRL, conjuntiva pink, sclera anicteric Pupils: Present: PERRL - Neck Neck exam general surgery: Present: supple, trachea midline. Absent: lymphadenopathy - Respiratory Respiratory exam: Present: CTAB. Absent: accessory muscle use, rales, rhonchi, wheezes - Cardiovascular Cardiovascular exam: Present: RRR, +S1, +S2. Absent: diastolic murmur, gallop, rubs, systolic murmur - GI/Abdominal GI/Abdominal exam: Present: normal bowel sounds, soft, no peritoneal signs. Absent: distended, tenderness - Extremities Exam Extremities exam: Present: warm, radial pulses palpable and symmetrical. Absent : calf tenderness, cyanotic, pedal edema - Neurological Exam Neurological exam: Present: CN II-XII intact, oriented X3, no focal deficits. Absent: pronater drift, facial droop, speech deficit - Skin Skin exam: Present: dry, intact Internal Medicine: Result - Labs CBC & Chem 7: 06/24/17 04:42 06/24/17 04:42 - ABG Interpretation ABG results: ABG ABG pH 7.40 pH Units (7.32-7.45) 06/22/17 04:36 ABG pCO2 57 mmHg (35-45) H 06/22/17 04:36 ABG pO2 59 mmHg (85-104) L 06/22/17 04:36 ABG O2 Saturation 90 % (95-98) L 06/22/17 04:36 PT/INR, D-dimer PT 12.7 Seconds (9.4-12.1) H 06/24/17 04:42 Consult Discharge Plan - Plan Referrals: Sarah Mckeon MD [Primary Care Provider] - 07/08/17 2:45 pm (Office had no available appointments within 5-7 days. 07/08/17 is nearest appointment from d/ c. )
[2017-06-25] MEDS: Sulfamethoxazole/Trimeth DS 1 EACH TABLET PO SCH (20:38)
[2017-06-25] MEDS: Insulin DETEMIR 100 UNIT/ML X5UNITS SQ SCH (20:39)
[2017-06-26] MEDS: Ipratropium/Albuterol Neb 3 ML IH SCH ×6 (04:56→23:42)
[2017-06-26] MEDS: *HR* Digoxin 0.125 MG TABLET PO SCH (08:56)
[2017-06-26] MEDS: Sulfamethoxazole/Trimeth DS 1 EACH TABLET PO SCH ×2 (08:56→21:18)
[2017-06-26] MEDS: *HR* Rivaroxaban 10 MG TABLET PO SCH (08:57)
[2017-06-26] MEDS: Gabapentin 300 MG CAPSULE PO SCH ×3 (08:57→21:17)
[2017-06-26] MEDS: Insulin LISPRO 300 UNITS/3 ML VIAL SQ SCH ×4 (08:58→21:20)
[2017-06-26] MEDS: Silvasorb 44.4 ML TUBE TP SCH (08:59)
--- NOTE | 2017-06-26 17:05 | Podiatry Consult Note ---
Date of Encounter: 06/27/17 Time of Encounter: 16:30 Assessment and Plan (1) Diabetes Current visit: Yes Status: Chronic Qualifiers: Diabetes mellitus type: type 2 Diabetes mellitus complication status: with skin complications Diabetes mellitus complication detail: with other skin ulcer Diabetes mellitus prison insulin use: without prison use Qualified Code(s): E11.622 - Type 2 diabetes mellitus with other skin ulcer (2) Non-pressure ulcer of right lower extremity Current visit: Yes Status: Chronic Full thickness vascular ulceration to the lateral aspect of the right lower leg. Ulcer is chronic, no evidence of bacterial infection. Wound cultures obtained and isolated serratia marcescens, staph aureus and Proteus mirabilis. Currently receiving Ceftriaxone. Patient was evaluated by the wound care nurse and orders were written for conservative wound care. Patient was evaluated by Vascular and recommended patient follow up as an outpatient. Per Vascular patient has no evidence of acute limb ischemia and the patient will ultimately require an angiogram. Recommend patient f/u in wound care with Dr. Bland with in one week of discharge from the hospital. Qualifiers: Non-pressure ulcer stage: with fat layer exposed Qualified Code(s): L97.912 - Non-pressure chronic ulcer of unspecified part of right lower leg with fat layer exposed History of Present Illness HPI: Mr. Blancas is a 62 year old male admitted to [place] for a syncopal episode and injury to his head. Patient has a medical history significant for DM, HTN, PVD and afib. Patient has a surgical history of a left BKA in May [address] Trujillo. Patient states he was treated for an ulcer to the right calf in 2010 that has since healed. Podiatry was consulted today for an ulcer to the right lower leg. Patient states the ulcer has been present for approximately 6 months , no known injury or trauma. Patient states he has been treating the ulcer himself by keeping it clean, dry and covered. He states the ulcer has not been evaluated by any provider. Patient states his PCP is Dr. Mckeon and he had an appointment scheduled with him this week. 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 Patient was evaluated by Vascular and recommended patient follow up as an outpatient. Per Vascular patient has no evidence of acute limb ischemia. The patient will ultimately require an angiogram after his acute illness has resolved. Past Med Surg Social Fam HX - Past Medical History Medical history: atrial fibrillation, diabetes, hyperlipidemia, hypertension, peripheral artery disease Psychiatric history: anxiety, depression - Past Surgical History Surgical History: orthopedic, other, vascular surgery, other (left AKA) - Social History Smoking Status: Current every day smoker Packs per day: 1.5 PPD Smokeless Tobacco Status: No Alcohol use: none Drug use: none - Family History Mother Race: Family Member Ethnicity: Non- Living Status: Age at : 59 Cause of : Breast cancer Hx Family Cancer: Yes (breast cancer) Medications and Allergies ALPRAZolam [Xanax 0.5 MG Tablet] 0.5 mg PO BID 06/18/17 [History] Amlodipine Besylate 10 mg PO DAILY 06/18/17 [History] Azathioprine [Imuran] 50 mg PO BID 06/18/17 [History] Calcium Carbonate/Vitamin D3 [Calcium 500-Vit D3 200 Tablet] 1 each PO BID 06/18 [History] Dapagliflozin Propanediol [Farxiga] 5 mg PO DAILY 06/18/17 [History] Digoxin [Lanoxin] 0.125 mg PO DAILY 06/18/17 [History] Famotidine [Heartburn Prevention] 20 mg PO DAILY 06/18/17 [History] Fenofibrate Nanocrystallized [Tricor] 145 mg PO DAILY 06/18/17 [History] Gabapentin [Neurontin] 300 mg PO TID 06/18/17 [History] Glimepiride [Amaryl] 1 mg PO QAM 06/18/17 [History] Liraglutide [Victoza 2-Rudy] 0.6 mg SQ DAILY 06/18/17 [History] Lisinopril/Hydrochlorothiazide [Zestoretic 20-25 mg Tablet] 1 each PO DAILY 06/27 [History] Metformin HCl [Glucophage] 1,000 mg PO BID 06/18/17 [History] Metoprolol [Lopressor] 100 mg PO BID 06/18/17 [History] Oxycodone HCl/Acetaminophen [Percocet 5-325 mg Tablet] 1 each PO Q6H PRN [History] Rivaroxaban [Xarelto] 20 mg PO DAILY 06/18/17 [History] Sildenafil Citrate [Viagra] 50 mg PO AD PRN 06/18/17 [History] Simvastatin [Zocor] 40 mg PO HS 06/18/17 [History] SitaGLIPtin [Januvia] 100 mg PO DAILY 06/18/17 [History] No Known Allergies Allergy (Verified 07/22/15 12:51) All Systems Reviewed: A 10-system review of systems was performed and is negative for pertinent findings except as documented above in the HPI. Physical Exam - Constitutional Vitals: Temp Pulse Resp BP Pulse Ox 98.5 F 113 18 141/69 94 06/26/17 12:36 06/26/17 13:52 06/26/17 15:41 06/26/17 12:36 06/26/17 15:41 Exam: General appearance: alert awake oriented X 3. Calm and pleasant, no acute distress.. Vascular: Unable to palpate pedal pulses of right foot, No evidence of cyanosis , pallor or rubor, Edema graded at 1+/4, Skin Temperature warm, No calf pain with manual compression. capillary refill time is immediate to digits. Musculoskeletal: history of Left BKA. Ulcer: Full thickness ulceration to the right lateral lower leg measuring 4 cm in length x 2.5 cm in width x 0.2 cm in depth. Base of wound 95% yellow slough, 5% granulation tissue, no exposed bone, ligament or tendon. Light periwound erythema, no streaking, no ascending cellulitis no odor, no purulent drainage, no fluctuance, no evidence of bacterial infection. Results - Labs Result Diagrams: 06/24/17 04:42 06/24/17 04:42 Labs: Abnormal lab results MCV 81.6 fL (83.0-100.0) L 06/24/17 04:42 MCH 24.5 pg (28.0-33.3) L 06/24/17 04:42 MCHC 30.1 g/dL (31.6-35.5) L 06/24/17 04:42 RDW 18.4 % (11.5-14.5) H 06/24/17 04:42 Nucleated RBCs/100 WBC 0.2 /100 WBC (0) H 06/20/17 04:20 Large Platelets Present (Not Present) A 06/19/17 04:34 Polychromasia 1+ (Not Present) A 06/20/17 04:20 Hypochromasia Present (Not Present) A 06/20/17 04:20 Basophilic Stippling 1+ (Not Present) A 06/20/17 04:20 Anisocytosis 1+ (Not Present) A 06/20/17 04:20 Macrocytosis Present (Not Present) A 06/19/17 04:34 PT 12.7 Seconds (9.4-12.1) H 06/24/17 04:42 APTT 21.3 Seconds (26.0-36.0) L 06/24/17 04:42 ABG pCO2 57 mmHg (35-45) H 06/22/17 04:36 ABG pO2 59 mmHg (85-104) L 06/22/17 04:36 ABG HCO3 35.3 mEQ/L (21-27) H 06/22/17 04:36 ABG Total CO2 37.0 mEq/L (20-26) H 06/22/17 04:36 ABG O2 Saturation 90 % (95-98) L 06/22/17 04:36 ABG Base Excess 8.6 mEq/L (-2.0 to 3.0) H 06/22/17 04:36 Potassium 3.2 mEq/L (3.5-4.5) L 06/24/17 04:42 Chloride 91 mEq/L (98-109) L 06/24/17 04:42 Carbon Dioxide 36 mEq/L (19-29) H 06/24/17 04:42 BUN 35 mg/dL (8-26) H 06/24/17 04:42 BUN/Creatinine Ratio 32 (6-26) H 06/24/17 04:42 Glucose 172 mg/dL (70-99) H 06/24/17 04:42 POC Glucose 194 (58-89) H 06/26/17 12:28 Hemoglobin A1c 6.5 % (-5.6) H 06/19/17 04:34 Albumin 3.1 g/dL (3.5-5.0) L 06/23/17 04:40 Globulin 4.3 g/dL (2.4-3.5) H 06/21/17 03:15 Albumin/Globulin Ratio 0.7 (1.1-2.2) L 06/21/17 03:15 Triglycerides 284 mg/dL (< 150) H 06/19/17 04:34 VLDL Cholesterol, Calc 57 mg/dL (< 31) H 06/19/17 04:34 HDL Cholesterol 25 mg/dL (40-59) L 06/19/17 04:34 Cholesterol/HDL Ratio 5.6 (0-4.9) H 06/19/17 04:34 Urine Glucose (UA) >=1000 mg/dL (Normal) H 06/18/17 16:05 Vancomycin Trough 26.7 mcg/mL (10-20) H* 06/21/17 22:20 Digoxin < 0.3 ng/mL (0.8-2.0) L 06/19/17 04:34 All other labs normal. Consult Discharge Plan - Plan Referrals: Sarah Mckeon MD [Primary Care Provider] - 07/08/17 2:45 pm (Office had no available appointments within 5-7 days. 07/08/17 is nearest appointment from d/ c. )
--- NOTE | 2017-06-26 17:47 | Internal Med Progress Note ---
Date of Encounter: 06/26/17 Time of Encounter: 17:44 - Assessment and plan (1) Acute respiratory failure with hypoxia and hypercarbia Current Visit: Yes Status: Acute Assessment and plan: Still hypoxic on O2 O2 qualification Continue supplementation Continue BiPAP at night Patient will need biPAP and O2 qualificatio prior to discharge due to syncope suspected to be from severe OHS/EB/COPD 06/25/2017. Oxygenation improved. We will work on the oxygen qualification. BiPAP at night. 06/26/2017 persistent elevated HR will increase metoprolol if remains high tomorrow. podiatry input appreciated. (2) Non-pressure ulcer of right lower extremity Current Visit: Yes Status: Chronic Assessment and plan: acute on chronic. Vascular surgery was following Continue wound care Multiple organisms infection Continue ceftriaxone Qualifiers: Non-pressure ulcer stage: with fat layer exposed Qualified Code(s): L97.912 - Non-pressure chronic ulcer of unspecified part of right lower leg with fat layer exposed (3) Afib Current Visit: Yes Status: Chronic Assessment and plan: HR in the 90s Resume digoxin Resume Xarelto Continue telemetry Qualifiers: Atrial fibrillation type: persistent Qualified Code(s): I48.1 - Persistent atrial fibrillation (4) HTN (hypertension) Current Visit: Yes Status: Chronic Assessment and plan: Controlled. Medications were held due to shock BP is acceptable for now Continue to hold Amlodipine and Lisinipril-HCTZ Resume prn Qualifiers: Hypertension type: essential hypertension Qualified Code(s): I10 - Essential (primary) hypertension (5) Diabetes Current Visit: Yes Status: Chronic Assessment and plan: appears controlled with an A1C of 6.5%. continue basal and prandial insulin Qualifiers: Diabetes mellitus type: type 2 Diabetes mellitus complication status: with skin complications Diabetes mellitus complication detail: with other skin ulcer Diabetes mellitus fci insulin use: without fci use Qualified Code(s): E11.622 - Type 2 diabetes mellitus with other skin ulcer - Subjective Interval history: Seen and examined. Chart reviewed. patient is comfortably sitting in a chair. Patient denies chest pain, shortness of breath, nausea, vomiting and diarrhea. 06/27/2017 seen and examined. no new complaints. has heart rate between and 100-115. unsafe discharge. - Constitutional Vitals: Temp Pulse Resp BP Pulse Ox 98.5 F 113 18 141/69 94 06/26/17 12:36 06/26/17 13:52 06/26/17 15:41 06/26/17 12:36 06/26/17 15:41 General appearance: Present: cooperative, A&O X 3, morbidly obese, pleasant, answers questions appropriately - Head Head exam: Present: atraumatic, normocephalic - Eye Eye exam: Present: PERRL, conjuntiva pink, sclera anicteric Pupils: Present: PERRL - Neck Neck exam general surgery: Present: supple, trachea midline. Absent: lymphadenopathy - Respiratory Respiratory exam: Present: CTAB. Absent: accessory muscle use, rales, rhonchi, wheezes - Cardiovascular Cardiovascular exam: Present: RRR, +S1, +S2. Absent: diastolic murmur, gallop, rubs, systolic murmur - GI/Abdominal GI/Abdominal exam: Present: normal bowel sounds, soft, no peritoneal signs. Absent: distended, tenderness - Extremities Exam Extremities exam: Present: warm, radial pulses palpable and symmetrical. Absent : calf tenderness, cyanotic, pedal edema - Neurological Exam Neurological exam: Present: CN II-XII intact, oriented X3, no focal deficits. Absent: pronater drift, facial droop, speech deficit - Skin Skin exam: Present: dry, intact Internal Medicine: Result - Labs CBC & Chem 7: 06/24/17 04:42 06/24/17 04:42 - ABG Interpretation ABG results: ABG ABG pH 7.40 pH Units (7.32-7.45) 06/22/17 04:36 ABG pCO2 57 mmHg (35-45) H 06/22/17 04:36 ABG pO2 59 mmHg (85-104) L 06/22/17 04:36 ABG O2 Saturation 90 % (95-98) L 06/22/17 04:36 PT/INR, D-dimer PT 12.7 Seconds (9.4-12.1) H 06/24/17 04:42 Consult Discharge Plan - Plan Referrals: Sarah Mckeon MD [Primary Care Provider] - 07/08/17 2:45 pm (Office had no available appointments within 5-7 days. 07/08/17 is nearest appointment from d/ c. )
[2017-06-26] MEDS: Insulin DETEMIR 100 UNIT/ML X5UNITS SQ SCH (21:19)
[2017-06-27] MEDS: Ipratropium/Albuterol Neb 3 ML IH SCH ×3 (03:55→11:28)
[2017-06-27] MEDS: Insulin LISPRO 300 UNITS/3 ML VIAL SQ SCH ×2 (08:05→12:07)
[2017-06-27] MEDS: *HR* Rivaroxaban 10 MG TABLET PO SCH (08:05)
[2017-06-27] MEDS: Gabapentin 300 MG CAPSULE PO SCH (08:05)
[2017-06-27] MEDS: Silvasorb 44.4 ML TUBE TP SCH (08:05)
[2017-06-27] MEDS: Sulfamethoxazole/Trimeth DS 1 EACH TABLET PO SCH (08:05)
[2017-06-27] MEDS: *HR* Digoxin 0.125 MG TABLET PO SCH (08:05)
[2017-06-27 11:31] VITALS: BP 126/81
--- NOTE | 2017-06-27 11:48 | Discharge Summary ---
Date of Encounter: 07/16/17 Time of Encounter: 11:43 - Discharge Diagnosis (1) Acute respiratory failure with hypoxia and hypercarbia Priority: Primary Status: Acute (2) Non-pressure ulcer of right lower extremity Priority: Secondary Status: Chronic Qualifiers: Non-pressure ulcer stage: with fat layer exposed Qualified Code(s): L97.912 - Non-pressure chronic ulcer of unspecified part of right lower leg with fat layer exposed (3) Afib Priority: Primary Status: Chronic Qualifiers: Atrial fibrillation type: persistent Qualified Code(s): I48.1 - Persistent atrial fibrillation (4) HTN (hypertension) Priority: Secondary Status: Chronic Qualifiers: Hypertension type: essential hypertension Qualified Code(s): I10 - Essential (primary) hypertension (5) Diabetes Priority: Secondary Status: Chronic Qualifiers: Diabetes mellitus type: type 2 Diabetes mellitus complication status: with skin complications Diabetes mellitus complication detail: with other skin ulcer Diabetes mellitus senior living insulin use: without senior living use Qualified Code(s): E11.622 - Type 2 diabetes mellitus with other skin ulcer - Discharge Medications Prescriptions: Metoprolol [Lopressor] 150 mg PO BID #90 tab Home Medications: Amlodipine Besylate 10 mg PO DAILY 06/18/17 [History] Azathioprine [Imuran] 50 mg PO BID 06/18/17 [History] Dapagliflozin Propanediol [Farxiga] 5 mg PO DAILY 06/18/17 [History] Digoxin [Lanoxin] 0.125 mg PO DAILY 06/18/17 [History] Famotidine [Heartburn Prevention] 20 mg PO DAILY 06/18/17 [History] Fenofibrate Nanocrystallized [Tricor] 145 mg PO DAILY 06/18/17 [History] Gabapentin [Neurontin] 300 mg PO TID 06/18/17 [History] Glimepiride [Amaryl] 1 mg PO QAM 06/18/17 [History] Liraglutide [Victoza 2-Rudy] 0.6 mg SQ DAILY 06/18/17 [History] Lisinopril/Hydrochlorothiazide [Zestoretic 20-25 mg Tablet] 1 each PO DAILY 06/27 [History] Metformin HCl [Glucophage] 1,000 mg PO BID 06/18/17 [History] Oxycodone HCl/Acetaminophen [Percocet 5-325 mg Tablet] 1 each PO Q6H PRN 08/08/ 17 [History] Rivaroxaban [Xarelto] 20 mg PO DAILY 06/18/17 [History] Sildenafil Citrate [Viagra] 50 mg PO AD PRN 06/18/17 [History] Simvastatin [Zocor] 40 mg PO HS 06/18/17 [History] SitaGLIPtin [Januvia] 100 mg PO DAILY 06/18/17 [History] Metoprolol [Lopressor] 150 mg PO BID #90 tab 06/27/17 [Rx] Allergies/Adverse Reactions: 3 Allergy/AdvReac Type Severity Reaction Status Date / Time zinc AdvReac Rash Verified 07/10/17 15:19 Date of admission: 06/18/17 20:47 Primary care physician: Sarah Mckeon Consults: 06/18/17 20:56 Consult to Beauty Culture Teacher [CONS] Routine Comment: Reason for Consult: Patient has diabetes controlled only by oral hyperglycemics and ulcers present on RLE. Requires education regarding his diabetes control 06/18/17 20:58 Consult to Vascular Surgery [CONS] Routine Consulting Provider: Vascular Surgery Renteta Reason for Consult: Patient is diabetic which is poorly controlled and presently has untreated ulcers of the RLE. Previous arterial study of 02/25 shows severely diminished segmental pressures of the right posterior tibial and right dorsalis pedis. Call Completed: No Consult to Wound Care [CONS] Routine Reason for Consult: Patient has ulcers present on RLE, one of which is open and through the adipose tissue Call Completed: No 06/19/17 10:16 Consult to Cardiology [CONS] Stat Comment: Consulting Provider: Cardiology Renetta Reason for Consult: Here for syncope. Vasculopath with hx L AKA- cannot find prior cardiac workup. afib with vent rate of 28. symptomatic. pacer pads in place; please advise. spoke to RADHA Fox Time Notified: 10:00 Call Completed: Yes 06/19/17 11:32 Consult to Electrophysiology (EP) [CONS] Routine Consulting Provider: Electrophysiology Renetta Reason for Consult: syncope, pauses, symptomatic annette Call Completed: Yes 06/21/17 11:10 Consult to Nutrition [CONS] Routine Comment: Consulting Provider: NUTRITION Reason for Dietary Consult: TF Start and Manage 06/24/17 10:13 Consult to Physical Therapy [CONS] Routine Comment: Evaluate, develop and implement POC Reason for Consult: eval for poss ecf 06/24/17 10:15 Consult to Occupational Therapy [CONS] Routine Comment: Evaluate, develop and implement POC Reason for Consult: eval for poss ecf 06/26/17 11:33 Consult to Podiatry [CONS] Routine Consulting Provider: [facility] Reason for Consult: lower right leg non-pressure ulcers Time Notified: 11:33 Call Completed: Yes Discharging clinician: Derik Corcoran - Patient Status Disposition: Home Health Service Condition: Good Functional capacity at discharge: uses cane/walker - Discharge Instructions Instructions: Acute Respiratory Distress Syndrome (DC), Syncope (DC) Follow Up With: Sarah Mckeon MD [Primary Care Provider] - 07/08/17 2:45 pm (Office had no available appointments within 5-7 days. 07/08/17 is nearest appointment from d/ c. ) - Diet and Activity Activity: as per physical therapy, increase activity as tolerated Diet: diabetic diet Interval History: Mr. Blancas is a 62 year old male who presents from the ED with chief complaint of syncope that occurred today when he went to the bathroom morning. Patient states he sat down to use the restroom and blacked out, hitting his head on the washer causing a minor head injury that bled due to patient being on Xarelto. Patient states he became shaky and his left arm him went numb prior to syncope. His stepdaughter brought him to the ED. Mr. Blancas reports that he has been feeling this way for the past month and a half. Patient's medical history includes atrial fibrillation, diabetes, hyperlipidemia, and hypertension. Patient is currently on Xarelto and digoxin for atrial fibrillation. Patient reports he is a current every day smoker, smoking one half packs per day. Patient is also a diabetic with poorly controlled diabetes. He currently has two untreated pressure ulcers of the RLE, one of which measures approximately 3.8 cm in diameter and 1 cm deep through the adipose layer. Wound culture ordered. Patient had a left leg amputation above the knee in 2005 due to PAD. Patient is at high risk for morbidity based on his current symptoms and risk factors and will be placed as inpatient status with orders for vascular surgery and wound care consults, PT and OT consults, SW consult, and diabetes education consult to assess patient's needs. Due to patient's syncopal episode and CT imaging today which shows areas of encephalomalacia in the right parietal lobe and right cerebral hemisphere despite reported lack of prior stroke by the patient, the patient is to have neuro checks Q4 and an MRI of the head/brain w/wo contrast to help rule out possible stroke/TIA. Orders also placed for bilateral carotid Doppler duplex imaging, echocardiogram, and orthostatic vital signs and BPs. Hospital course: patiet was hospitalized and started on abx after culture. Noted that patient' s heart rate was persistently elevated and patient was in atrial fibrillation with rapid ventricular rate. Cardiology was consulted. Cardiology recommended changing the medication. Patient has a persistent wound on his lower extremity. Podiatry for consulted. Podiatry recommended wound VAC and an outpatient follow-up. Overall patient's health was improving and patient was also evaluated by vascular surgery. Patient will be going home and will follow with his primary care physician. I personally spoke with the primary care physician and outlined the plan and updated inpatient course. All questions answered - Time Spent with Patient Total time spent providing and/or coordinating discharge services: - Constitutional Vitals: Temp Pulse Resp BP Pulse Ox 98.3 F 91 16 126/81 97 06/27/17 07:40 06/27/17 11:25 06/27/17 11:28 06/27/17 11:25 06/27/17 11:28 General appearance: Present: cooperative, A&O X 3, morbidly obese, pleasant, answers questions appropriately - Head Head exam: Present: atraumatic, normocephalic - Eye Eye exam: Present: PERRL, conjuntiva pink, sclera anicteric Pupils: Present: PERRL - Neck Neck exam general surgery: Present: supple, trachea midline. Absent: lymphadenopathy - Respiratory Respiratory exam: Present: CTAB. Absent: accessory muscle use, rales, rhonchi, wheezes - Cardiovascular Cardiovascular exam: Present: RRR, +S1, +S2. Absent: diastolic murmur, gallop, rubs, systolic murmur - GI/Abdominal GI/Abdominal exam: Present: normal bowel sounds, soft, no peritoneal signs. Absent: distended, tenderness - Extremities Exam Extremities exam: Present: warm, radial pulses palpable and symmetrical. Absent : calf tenderness, cyanotic, pedal edema - Neurological Exam Neurological exam: Present: CN II-XII intact, oriented X3, no focal deficits. Absent: pronater drift, facial droop, speech deficit - Skin Skin exam: Present: dry, intact
--- NOTE | 2017-06-27 12:27 | Physician Discharge Referral ---
Home Health/Hosp Referral Info Transfer to: Home Health - Diagnosis (1) Acute respiratory failure with hypoxia and hypercarbia Priority: Primary Status: Acute (2) Non-pressure ulcer of right lower extremity Priority: Primary Status: Chronic (3) Afib Priority: Secondary Status: Chronic (4) HTN (hypertension) Priority: Secondary Status: Chronic (5) Diabetes Priority: Secondary Status: Chronic - Respiratory Orders Smoking Cessation: Smoking cessation has been advised. For more information, call the [place] Tobacco Quit Line at 7-919-ODGL-NOW. - Services Needed Following services are medically necessary services: Nursing, Physical Therapy - Transfer Medications Prescriptions: Metoprolol [Lopressor] 150 mg PO BID #90 tab Silvasorb 1 appl TP DAILY #1 Sulfamethoxazole/Trimeth DS [Bactrim Ds] 1 each PO BID #14 tab Home Medications: ALPRAZolam [Xanax 0.5 MG Tablet] 0.5 mg PO BID 06/18/17 [History] Amlodipine Besylate 10 mg PO DAILY 06/18/17 [History] Azathioprine [Imuran] 50 mg PO BID 06/18/17 [History] Calcium Carbonate/Vitamin D3 [Calcium 500-Vit D3 200 Tablet] 1 each PO BID 06/18 [History] Dapagliflozin Propanediol [Farxiga] 5 mg PO DAILY 06/18/17 [History] Digoxin [Lanoxin] 0.125 mg PO DAILY 06/18/17 [History] Famotidine [Heartburn Prevention] 20 mg PO DAILY 06/18/17 [History] Fenofibrate Nanocrystallized [Tricor] 145 mg PO DAILY 06/18/17 [History] Gabapentin [Neurontin] 300 mg PO TID 06/18/17 [History] Glimepiride [Amaryl] 1 mg PO QAM 06/18/17 [History] Liraglutide [Victoza 2-Rudy] 0.6 mg SQ DAILY 06/18/17 [History] Lisinopril/Hydrochlorothiazide [Zestoretic 20-25 mg Tablet] 1 each PO DAILY 06/27 [History] Metformin HCl [Glucophage] 1,000 mg PO BID 06/18/17 [History] Oxycodone HCl/Acetaminophen [Percocet 5-325 mg Tablet] 1 each PO Q6H PRN [History] Rivaroxaban [Xarelto] 20 mg PO DAILY 06/18/17 [History] Sildenafil Citrate [Viagra] 50 mg PO AD PRN 06/18/17 [History] Simvastatin [Zocor] 40 mg PO HS 06/18/17 [History] SitaGLIPtin [Januvia] 100 mg PO DAILY 06/18/17 [History] Insulin DETEMIR [Levemir] 15 unit SQ HS 06/27/17 [Rx] Ipratropium/Albuterol Neb [Duoneb] 3 ml IH [id number] inh 06/27/17 [Rx] Metoprolol [Lopressor] 150 mg PO BID #90 tab 06/27/17 [Rx] Silvasorb 1 appl TP DAILY #1 06/27/17 [Rx] Sulfamethoxazole/Trimeth DS [Bactrim Ds] 1 each PO BID #14 tab 06/27/17 [Rx] Allergies/Adverse Reactions: 3 Allergy/AdvReac Type Severity Reaction Status Date / Time No Known Allergies Allergy Verified 07/22/15 12:51 Certification: Further, I certify that my clinical findings support that this patient is homebound (i.e. absences from home require considerable and taxing effort and are for medical reasons or baptism services or infrequently or short duration when for other reasons) because: Homebound Reason: Patient requires assistance of a person or device to safely leave home Attestation: My signature below is to certify that this patient is under my care and that I, or nurse practitioner, or a physician's regulatory assistant working with me, has a face-to -face encounter with this patient.
== END 2017-06-27 13:16 | disposition home health service (06) | DRG 871 ==
LOC: EMEROO 13:50 → 3BNU 13:50 → SUATTDRO 20:47 → 2NNU 06-19 10:54 → ICNU 06-20 04:47 → 2ANU 06-23 11:11
PROVIDERS: ADMIT Nurse Practitioner Family; ATTEND Internal Medicine